=== PATIENT | female | born 1930 ===

== ENCOUNTER 2017-12-15 10:35 | Inpatient (IN) | payer OTHER ==
--- NOTE | 2017-12-15 10:58 | C.PDOC ---
History Of Present Illness 87yo female with dementia, was at the clinic today and reported she had chest pain so EMS was called. Per EMS, once they arrived at scene, patient reported she had no chest pain and but she had epigastric pain. A full HPI and ROS is limited due to dementia. Time Seen by Provider: 12/15/17 10:36 Chief Complaint (Nursing): Medical Clearance History Per: EMS History/Exam Limitations: clinical condition (dementia) Past Medical History Reviewed: Historical Data, Nursing Documentation, Vital Signs Vital Signs: Last Vital Signs Temp 97.6 F 12/15/17 10:39 Pulse 64 12/15/17 16:01 Resp 20 12/15/17 16:01 BP 143/82 12/15/17 16:01 Pulse Ox 100 12/15/17 16:52 - Medical History PMH: Alzheimer's Disease, Dementia Family History: States: No Known Family Hx - Social History Hx Alcohol Use: No Hx Substance Use: No Review Of Systems Review Of Systems: ROS cannot be obtained secondary to pt's inabilty to answer questions. (patient has dementia) Cardiovascular: Positive for: Chest Pain Gastrointestinal: Positive for: Abdominal Pain Physical Exam - Physical Exam Appears: Non-toxic Skin: Normal Color Head: Normacephalic Eye(s): bilateral: Normal Inspection Neck: Normal ROM, Supple Cardiovascular: Rhythm Regular Respiratory: Normal Breath Sounds Gastrointestinal/Abdominal: Normal Exam, Bowel Sounds, Soft, No Tenderness Back: Normal Inspection Extremity: Normal ROM ED Course And Treatment - Laboratory Results Result Diagrams: 12/15/17 11:22 12/15/17 12:57 ECG: Interpreted By Me, Viewed By Me Interpretation Of ECG: Wide QRS, RBBB, left axis deviation Rate From EC O2 Sat by Pulse Oximetry: 100 (RA) Pulse Ox Interpretation: Normal Progress Note: case was d/w who accepted patient to tele for observation. Medical Decision Making Medical Decision Making: Impression: Epigastric pain, chest pain Plan: -- Labs -- Aspirin 325 mg PO Disposition - Disposition Disposition: HOSPITALIZED Disposition Time: 15:33 Condition: FAIR - Clinical Impression Clinical Impression: Chest pain, Abnormal EKG - PA / FLOOR TECHNICIAN / Resident Statement MD/DO has reviewed & agrees with the documentation as recorded. - Scribe Statement The provider has reviewed the documentation as recorded by the Scribe (Mariel Schmidt) Provider Attestation: All medical record entries made by the Scribe were at my direction and personally dictated by me. I have reviewed the chart and agree that the record accurately reflects my personal performance of the history, physical exam, medical decision making, and the department course for this patient. I have also personally directed, reviewed, and agree with the discharge instructions and disposition. Decision To Admit - Pt Status Changed To: Hospital Disposition Of: Observation - . Bed Request Type: Telemetry Admitting Physician: Char Bravo Patient Diagnosis: Chest pain, Abnormal EKG
[2017-12-15 11:33] LABS: BASO % 0.4 % (0.0-2.0); EOS # 0.1 K/uL (0.0-0.7); EOS % 1.7 % (0.0-4.0); HEMOGLOBIN 12.6 g/dL (11.0-16.0); LYMPH # 2.6 K/uL (1.0-4.3); LYMPH % 38.2 % (20.0-40.0); MEAN CELL VOLUME 96.7 fL (81.0-99.0); MEAN CORPUSCULAR HEMOGLOBIN 32.8 pg (27.0-31.0); MEAN CORPUSCULAR HGB CONC 33.9 g/dL (33.0-37.0); MEAN PLATELET VOLUME 7.1 fL (7.2-11.7); MONO # 0.5 K/uL (0.0-0.8); MONO % 7.7 % (0.0-10.0); NEUT # 3.6 K/uL (1.8-7.0); RBC 3.84 Mil/uL (3.80-5.20); RED CELL DISTRIBUTION WIDTH 14.8 % (11.5-14.5); WHITE BLOOD COUNT 6.8 K/uL (4.8-10.8)
[2017-12-15 11:43] LABS: INR 0.9; PROTHROMBIN TIME 10.5 SECONDS (9.7-12.2)
[2017-12-15 12:01] LABS: SQUAMOUS EPITHIAL 4 /hpf (0-5); URINE BACTERIA MANY (<OCC); URINE BILIRUBIN NEGATIVE (NEGATIVE); URINE BLOOD NEGATIVE (NEGATIVE); URINE CLARITY Hazy (Clear); URINE COLOR Yellow (YELLOW); URINE GLUCOSE (UA) NORMAL (Normal); URINE LEUKOCYTE ESTERASE 1+ Leu/uL (Negative); URINE NITRATE POSITIVE (NEGATIVE); URINE PROTEIN NEGATIVE (NEGATIVE); URINE UROBILINOGEN NORMAL mg/dL (0.2-1.0)
--- NOTE | 2017-12-15 12:01 | RAD ---
PROCEDURE: CHEST RADIOGRAPH, 1 VIEW HISTORY: CP COMPARISON: With the its use FINDINGS: LUNGS: Clear. PLEURA: No pneumothorax or pleural fluid seen. CARDIOVASCULAR: Normal. OSSEOUS STRUCTURES: No significant abnormalities. VISUALIZED UPPER ABDOMEN: Normal. OTHER FINDINGS: None. IMPRESSION: No active disease.
[2017-12-15 13:11] LABS: ALB/GLOB RATIO 1.1 (1.0-2.1); ALBUMIN 3.8 g/dL (3.5-5.0); ALT/SGPT 16 U/L (9-52); AST/SGOT 21 U/L (14-36); BLOOD UREA NITROGEN 11 mg/dL (7-17); CALCIUM 10.2 mg/dl (8.6-10.4); GFR AFRICAN-AMERICAN > 60; GFR NON-AFRICAN AMERICAN > 60
[2017-12-15 13:23] LABS: B-TYPE NATRIURETIC PEPTIDE 144 pg/mL (0-900)
[2017-12-15] MEDS ORDERED: Morphine 4 MG/ML VIAL ONE (15:28)
--- NOTE | 2017-12-15 17:54 | CP.PCM.PN ---
Subjective - Date & Time of Evaluation Date of Evaluation: 12/15/17 Time of Evaluation: 14:10 - Subjective Subjective: clinically same Objective - Vital Signs/Intake and Output Vital Signs (last 24 hours): Temp Pulse Resp BP Pulse Ox 97.6 F 85 16 117/72 99 12/15/17 10:39 12/15/17 17:49 12/15/17 17:49 12/15/17 17:49 12/15/17 17:49 - Labs Labs: 12/15/17 11:22 12/15/17 12:57 PT 10.5 SECONDS (9.7-12.2) 12/15/17 11:22 INR 0.9 12/15/17 11:22 APTT 32 SECONDS (21-34) 12/15/17 11:22 - Constitutional Appears: Well - Head Exam Head Exam: ATRAUMATIC, NORMAL INSPECTION, NORMOCEPHALIC - Eye Exam Eye Exam: EOMI, Normal appearance, PERRL Pupil Exam: NORMAL ACCOMODATION, PERRL - ENT Exam ENT Exam: Mucous Membranes Moist, Normal Exam - Neck Exam Neck Exam: Full ROM, Normal Inspection. absent: Lymphadenopathy - Respiratory Exam Respiratory Exam: Decreased Breath Sounds - Cardiovascular Exam Cardiovascular Exam: REGULAR RHYTHM, +S1, +S2 - GI/Abdominal Exam GI & Abdominal Exam: Soft, Diminished Bowel Sounds - Rectal Exam Rectal Exam: Deferred
--- NOTE | 2017-12-15 17:56 | CP.PCM.HP ---
Past Patient History - Past Social History Smoking Status: Never Smoked - CARDIAC Hx Hypotension: Yes Other/Comment: Hx of Precordial pain - NEUROLOGICAL Hx Alzheimer's Disease: Yes Hx Dementia: Yes - ENDOCRINE/METABOLIC Hx Diabetes Mellitus Type 2: Yes - PSYCHIATRIC Hx Substance Use: No Meds Allergies/Adverse Reactions: Allergies Allergy/AdvReac Type Severity Reaction Status Date / Time Penicillins Allergy Verified 12/15/17 10:50 Physical Exam - Constitutional Appears: Well - Head Exam Head Exam: ATRAUMATIC, NORMAL INSPECTION, NORMOCEPHALIC - Eye Exam Eye Exam: EOMI, Normal appearance, PERRL Pupil Exam: NORMAL ACCOMODATION, PERRL - ENT Exam ENT Exam: Mucous Membranes Moist, Normal Exam - Neck Exam Neck exam: Positive for: Normal Inspection - Respiratory Exam Respiratory Exam: Decreased Breath Sounds - Cardiovascular Exam Cardiovascular Exam: REGULAR RHYTHM, +S1, +S2 - GI/Abdominal Exam GI & Abdominal Exam: Diminished Bowel Sounds, Soft - Rectal Exam Rectal Exam: Deferred Results - Vital Signs Recent Vital Signs: Last Vital Signs Temp 97.6 F 12/15/17 10:39 Pulse 85 12/15/17 17:49 Resp 16 12/15/17 17:49 BP 117/72 12/15/17 17:49 Pulse Ox 99 12/15/17 17:49 - Labs Result Diagrams: 12/15/17 11:22 12/15/17 12:57 Labs: Laboratory Results - last 24 hr 12/15/17 12/15/17 12/15/17 10:45 11:22 11:22 WBC 6.8 RBC 3.84 Hgb 12.6 Hct 37.2 MCV 96.7 MCH 32.8 H MCHC 33.9 RDW 14.8 H Plt Count 291 MPV 7.1 L Neut % (Auto) 52.0 Lymph % (Auto) 38.2 [place] % (Auto) 7.7 Eos % (Auto) 1.7 Baso % (Auto) 0.4 Neut # (Auto) 3.6 Lymph # (Auto) 2.6 [place] # (Auto) 0.5 Eos # (Auto) 0.1 Baso # (Auto) 0.0 PT 10.5 INR 0.9 APTT 32 Sodium Potassium Chloride Carbon Dioxide Anion Gap BUN Creatinine Est GFR ( Amer) Est GFR (Non-Af Amer) POC Glucose (mg/dL) 91 Random Glucose Calcium Total Bilirubin AST ALT Alkaline Phosphatase CK-MB (Mass) Troponin I NT-Pro-B Natriuret Pep Total Protein Albumin Globulin Albumin/Globulin Ratio Urine Color Urine Clarity Urine pH Ur Specific [place] Urine Protein Urine Glucose (UA) Urine Ketones Urine Blood Urine Nitrate Urine Bilirubin Urine Urobilinogen Ur Leukocyte Esterase Urine WBC (Auto) Urine RBC (Auto) Ur Squamous Epith Cells Urine Bacteria 12/15/17 12/15/17 11:22 12:57 WBC RBC Hgb Hct MCV MCH MCHC RDW Plt Count MPV Neut % (Auto) Lymph % (Auto) [place] % (Auto) Eos % (Auto) Baso % (Auto) Neut # (Auto) Lymph # (Auto) [place] # (Auto) Eos # (Auto) Baso # (Auto) PT INR APTT Sodium 142 Potassium 4.7 Chloride 104 Carbon Dioxide 29 Anion Gap 13 BUN 11 Creatinine 0.7 Est GFR ( Amer) > 60 Est GFR (Non-Af Amer) > 60 POC Glucose (mg/dL) Random Glucose 80 Calcium 10.2 Total Bilirubin 0.3 AST 21 ALT 16 Alkaline Phosphatase 89 CK-MB (Mass) 0.40 Troponin I < 0.0120 NT-Pro-B Natriuret Pep 144 Total Protein 7.4 Albumin 3.8 Globulin 3.6 Albumin/Globulin Ratio 1.1 Urine Color Yellow Urine Clarity Hazy Urine pH 7.0 Ur Specific [place] 1.010 Urine Protein Negative Urine Glucose (UA) Normal Urine Ketones Negative Urine Blood Negative Urine Nitrate Positive H Urine Bilirubin Negative Urine Urobilinogen Normal Ur Leukocyte Esterase 1+ H Urine WBC (Auto) 9 H Urine RBC (Auto) 1 Ur Squamous Epith Cells 4 Urine Bacteria Many H
[2017-12-15] MEDS: (Novolog) Insulin Aspart, Recombinant 100 u/ml 10 ml vial SC SCH (21:38)
[2017-12-16] MEDS ORDERED: Albuterol-Ipratrop 3 mg / 0.5 (3 ml) UD INH ONE (06:15)
[2017-12-16 06:55] LABS: CK-MB 0.63 ng/mL (0.0-3.38)
[2017-12-16] MEDS: (Novolog) Insulin Aspart, Recombinant 100 u/ml 10 ml vial SC SCH ×4 (07:47→22:49)
[2017-12-16] MEDS: Enoxaparin 40 mg Syringe SC SCH (10:04)
[2017-12-16] MEDS: Pantoprazole 40 mg EC Tab PO SCH (10:04)
--- NOTE | 2017-12-16 10:38 | CP.PCM.CON ---
History of Present Illness - History of Present Illness History of Present Illness: 87yo female with dementia, was at the clinic today and reported she had chest pain so EMS was called. Per EMS, once they arrived at scene, patient reported she had no chest pain and but she had epigastric pain. A full HPI and ROS is limited due to dementia. Labs: H/H, CHEM WNL except inc blood glucose Troponin neg x3 CXRAY: No congestion or edema Vitals: BP, HR and temp WNL Review of Systems - Review of Systems All systems: reviewed and no additional remarkable complaints except Past Patient History - Past Social History Smoking Status: Never Smoked - CARDIAC Hx Hypotension: Yes Other/Comment: Hx of Precordial pain - NEUROLOGICAL Hx Alzheimer's Disease: Yes Hx Dementia: Yes - ENDOCRINE/METABOLIC Hx Diabetes Mellitus Type 2: Yes - PSYCHIATRIC Hx Substance Use: No Meds Allergies/Adverse Reactions: Allergies Allergy/AdvReac Type Severity Reaction Status Date / Time Penicillins Allergy Verified 12/15/17 10:50 - Medications Medications: Current Medications Aspirin (Aspirin) 325 mg PO DAILY [facility] Last Admin: 12/16/17 10:04 Dose: 325 mg Enoxaparin Sodium (Lovenox) 40 mg SC DAILY [facility] Last Admin: 12/16/17 10:04 Dose: 40 mg Insulin Aspart (Novolog) 0 unit SC ACHS [facility] PRN Reason: Protocol Last Admin: 12/16/17 07:47 Dose: Not Given Losartan Potassium (Cozaar) 50 mg PO DAILY [facility] Last Admin: 12/16/17 10:04 Dose: 50 mg Metformin HCl (Glucophage) 850 mg PO BID [facility] Last Admin: 12/16/17 10:04 Dose: 850 mg Pantoprazole Sodium (Protonix Ec Tab) 40 mg PO DAILY [facility] Last Admin: 12/16/17 10:04 Dose: 40 mg Physical Exam - Constitutional Appears: No Acute Distress, Other (dementia/confusion reported as baseline) - Head Exam Head Exam: ATRAUMATIC, NORMAL INSPECTION, NORMOCEPHALIC - Eye Exam Eye Exam: EOMI, Normal appearance - ENT Exam ENT Exam: Mucous Membranes Moist, Normal Exam - Neck Exam Neck exam: Positive for: Normal Inspection. Negative for: Thyromegaly - Respiratory Exam Respiratory Exam: Clear to Auscultation Bilateral, NORMAL BREATHING PATTERN. absent: Rales, Rhonchi, Wheezes - Cardiovascular Exam Cardiovascular Exam: REGULAR RHYTHM, RRR, +S1, +S2. absent: JVD, Systolic Murmur - GI/Abdominal Exam GI & Abdominal Exam: Soft. absent: Tenderness - Extremities Exam Extremities exam: Positive for: pedal pulses present. Negative for: calf tenderness, joint swelling, pedal edema - Neurological Exam Neurological exam: Altered Results - Vital Signs Recent Vital Signs: Last Vital Signs Temp 98.4 F 12/16/17 08:18 Pulse 83 12/16/17 08:18 Resp 20 12/16/17 08:18 BP 128/87 12/16/17 08:18 Pulse Ox 99 12/16/17 08:18 - Labs Result Diagrams: 12/15/17 11:22 12/15/17 12:57 Labs: Laboratory Results - last 24 hr 12/15/17 12/15/17 12/15/17 10:45 11:22 11:22 WBC 6.8 RBC 3.84 Hgb 12.6 Hct 37.2 MCV 96.7 MCH 32.8 H MCHC 33.9 RDW 14.8 H Plt Count 291 MPV 7.1 L Neut % (Auto) 52.0 Lymph % (Auto) 38.2 [place] % (Auto) 7.7 Eos % (Auto) 1.7 Baso % (Auto) 0.4 Neut # (Auto) 3.6 Lymph # (Auto) 2.6 [place] # (Auto) 0.5 Eos # (Auto) 0.1 Baso # (Auto) 0.0 PT 10.5 INR 0.9 APTT 32 Sodium Potassium Chloride Carbon Dioxide Anion Gap BUN Creatinine Est GFR ( Amer) Est GFR (Non-Af Amer) POC Glucose (mg/dL) 91 Random Glucose Calcium Total Bilirubin AST ALT Alkaline Phosphatase Total Creatine Kinase CK-MB (Mass) Troponin I NT-Pro-B Natriuret Pep Total Protein Albumin Globulin Albumin/Globulin Ratio Urine Color Urine Clarity Urine pH Ur Specific [place] Urine Protein Urine Glucose (UA) Urine Ketones Urine Blood Urine Nitrate Urine Bilirubin Urine Urobilinogen Ur Leukocyte Esterase Urine WBC (Auto) Urine RBC (Auto) Ur Squamous Epith Cells Urine Bacteria 12/15/17 12/15/17 12/15/17 11:22 12:57 20:52 WBC RBC Hgb Hct MCV MCH MCHC RDW Plt Count MPV Neut % (Auto) Lymph % (Auto) [place] % (Auto) Eos % (Auto) Baso % (Auto) Neut # (Auto) Lymph # (Auto) [place] # (Auto) Eos # (Auto) Baso # (Auto) PT INR APTT Sodium 142 Potassium 4.7 Chloride 104 Carbon Dioxide 29 Anion Gap 13 BUN 11 Creatinine 0.7 Est GFR ( Amer) > 60 Est GFR (Non-Af Amer) > 60 POC Glucose (mg/dL) 169 H Random Glucose 80 Calcium 10.2 Total Bilirubin 0.3 AST 21 ALT 16 Alkaline Phosphatase 89 Total Creatine Kinase CK-MB (Mass) 0.40 Troponin I < 0.0120 NT-Pro-B Natriuret Pep 144 Total Protein 7.4 Albumin 3.8 Globulin 3.6 Albumin/Globulin Ratio 1.1 Urine Color Yellow Urine Clarity Hazy Urine pH 7.0 Ur Specific [place] 1.010 Urine Protein Negative Urine Glucose (UA) Normal Urine Ketones Negative Urine Blood Negative Urine Nitrate Positive H Urine Bilirubin Negative Urine Urobilinogen Normal Ur Leukocyte Esterase 1+ H Urine WBC (Auto) 9 H Urine RBC (Auto) 1 Ur Squamous Epith Cells 4 Urine Bacteria Many H 12/15/17 12/16/17 12/16/17 22:06 06:18 07:16 WBC RBC Hgb Hct MCV MCH MCHC RDW Plt Count MPV Neut % (Auto) Lymph % (Auto) [place] % (Auto) Eos % (Auto) Baso % (Auto) Neut # (Auto) Lymph # (Auto) [place] # (Auto) Eos # (Auto) Baso # (Auto) PT INR APTT Sodium Potassium Chloride Carbon Dioxide Anion Gap BUN Creatinine Est GFR ( Amer) Est GFR (Non-Af Amer) POC Glucose (mg/dL) 125 H Random Glucose Calcium Total Bilirubin AST ALT Alkaline Phosphatase Total Creatine Kinase 31 40 CK-MB (Mass) 0.50 0.63 Troponin I < 0.0120 < 0.0120 NT-Pro-B Natriuret Pep Total Protein Albumin Globulin Albumin/Globulin Ratio Urine Color Urine Clarity Urine pH Ur Specific [place] Urine Protein Urine Glucose (UA) Urine Ketones Urine Blood Urine Nitrate Urine Bilirubin Urine Urobilinogen Ur Leukocyte Esterase Urine WBC (Auto) Urine RBC (Auto) Ur Squamous Epith Cells Urine Bacteria - EKG Data EKG Interpreted by: Myself Assessment & Plan - Assessment and Plan (Free Text) Assessment: HTN DM Dementia RBBB on EKG CP atypical CP is reolved; [place] ruled out I have reviewed all EKGs and find NSR with 1st deg AVB: There was no evidence for junctional rhythm 'likely artifact', no ischemic changes were present. No ADHF or volume overload VSS Plan echo to eval cardiac structure and function: monitor for bradycardia: avoid beta-blockers. DVT prophylaxis cont with ASA-losartan
--- NOTE | 2017-12-16 16:54 | CP.PCM.PN ---
Subjective - Date & Time of Evaluation Date of Evaluation: 12/16/17 Time of Evaluation: 15:20 - Subjective Subjective: clinically same Objective - Vital Signs/Intake and Output Vital Signs (last 24 hours): Temp Pulse Resp BP Pulse Ox 98.4 F 83 20 128/87 99 12/16/17 08:18 12/16/17 08:18 12/16/17 08:18 12/16/17 08:18 12/16/17 08:18 - Medications Medications: Current Medications Aspirin (Aspirin) 325 mg PO DAILY [facility] Last Admin: 12/16/17 10:04 Dose: 325 mg Enoxaparin Sodium (Lovenox) 40 mg SC DAILY [facility] Last Admin: 12/16/17 10:04 Dose: 40 mg Insulin Aspart (Novolog) 0 unit SC [facility] PRN Reason: Protocol Last Admin: 12/16/17 11:47 Dose: Not Given Losartan Potassium (Cozaar) 50 mg PO DAILY [facility] Last Admin: 12/16/17 10:04 Dose: 50 mg Metformin HCl (Glucophage) 850 mg PO BID [facility] Last Admin: 12/16/17 10:04 Dose: 850 mg Pantoprazole Sodium (Protonix Ec Tab) 40 mg PO DAILY [facility] Last Admin: 12/16/17 10:04 Dose: 40 mg - Labs Labs: 12/15/17 11:22 12/15/17 12:57 PT 10.5 SECONDS (9.7-12.2) 12/15/17 11:22 INR 0.9 12/15/17 11:22 APTT 32 SECONDS (21-34) 12/15/17 11:22 - Constitutional Appears: Well - Head Exam Head Exam: ATRAUMATIC, NORMAL INSPECTION, NORMOCEPHALIC - Eye Exam Eye Exam: EOMI, Normal appearance, PERRL Pupil Exam: NORMAL ACCOMODATION, PERRL - ENT Exam ENT Exam: Mucous Membranes Moist, Normal Exam - Neck Exam Neck Exam: Full ROM, Normal Inspection. absent: Lymphadenopathy - Respiratory Exam Respiratory Exam: Decreased Breath Sounds - Cardiovascular Exam Cardiovascular Exam: REGULAR RHYTHM, +S1, +S2 - GI/Abdominal Exam GI & Abdominal Exam: Soft, Diminished Bowel Sounds - Rectal Exam Rectal Exam: Deferred
[2017-12-16 20:12] LABS: CK-MB 0.47 ng/mL (0.0-3.38)
[2017-12-17] MEDS: (Novolog) Insulin Aspart, Recombinant 100 u/ml 10 ml vial SC SCH ×4 (07:30→21:44)
--- NOTE | 2017-12-17 07:45 | CP.PCM.PN ---
Subjective - Date & Time of Evaluation Date of Evaluation: 12/17/17 Time of Evaluation: 07:44 - Subjective Subjective: Still pending ECHO HTN DM Dementia RBBB on EKG CP atypical CP is reolved; [place] ruled out I have reviewed all EKGs and find NSR with 1st deg AVB: There was no evidence for junctional rhythm 'likely artifact', no ischemic changes were present. No ADHF or volume overload VSS Plan echo to eval cardiac structure and function: monitor for bradycardia: avoid beta-blockers. DVT prophylaxis cont with ASA-losartan Objective - Vital Signs/Intake and Output Vital Signs (last 24 hours): Temp Pulse Resp BP Pulse Ox 97.3 F L 90 20 150/90 97 12/17/17 05:00 12/17/17 05:00 12/17/17 05:00 12/17/17 05:00 12/17/17 05:00 - Medications Medications: Current Medications Aspirin (Aspirin) 325 mg PO DAILY [facility] Last Admin: 12/16/17 10:04 Dose: 325 mg Enoxaparin Sodium (Lovenox) 40 mg SC DAILY [facility] Last Admin: 12/16/17 10:04 Dose: 40 mg Insulin Aspart (Novolog) 0 unit SC [facility] PRN Reason: Protocol Last Admin: 12/17/17 07:30 Dose: Not Given Losartan Potassium (Cozaar) 50 mg PO DAILY [facility] Last Admin: 12/16/17 10:04 Dose: 50 mg Metformin HCl (Glucophage) 850 mg PO BID [facility] Last Admin: 12/16/17 18:00 Dose: Not Given Pantoprazole Sodium (Protonix Ec Tab) 40 mg PO DAILY [facility] Last Admin: 12/16/17 10:04 Dose: 40 mg - Labs Labs: 12/15/17 11:22 12/15/17 12:57 PT 10.5 SECONDS (9.7-12.2) 12/15/17 11:22 INR 0.9 12/15/17 11:22 APTT 32 SECONDS (21-34) 12/15/17 11:22
[2017-12-17] MEDS: Pantoprazole 40 mg EC Tab PO SCH ×2 (10:50→13:38)
[2017-12-17] MEDS: Enoxaparin 40 mg Syringe SC SCH (11:00)
--- NOTE | 2017-12-17 14:09 | CP.PCM.PN ---
Subjective - Date & Time of Evaluation Date of Evaluation: 12/17/17 Time of Evaluation: 13:40 - Subjective Subjective: clinically same Objective - Vital Signs/Intake and Output Vital Signs (last 24 hours): Temp Pulse Resp BP Pulse Ox 97.1 F L 100 H 20 117/74 94 L 12/17/17 08:30 12/17/17 09:31 12/17/17 08:30 12/17/17 08:30 12/17/17 08:30 - Medications Medications: Current Medications Aspirin (Aspirin) 325 mg PO DAILY [facility] Last Admin: 12/17/17 13:41 Dose: 325 mg Enoxaparin Sodium (Lovenox) 40 mg SC DAILY [facility] Last Admin: 12/17/17 11:00 Dose: 40 mg Insulin Aspart (Novolog) 0 unit SC [facility] PRN Reason: Protocol Last Admin: 12/17/17 12:02 Dose: Not Given Losartan Potassium (Cozaar) 50 mg PO DAILY [facility] Last Admin: 12/17/17 13:41 Dose: 50 mg Metformin HCl (Glucophage) 850 mg PO BID [facility] Last Admin: 12/17/17 10:50 Dose: Not Given Pantoprazole Sodium (Protonix Ec Tab) 40 mg PO DAILY [facility] Last Admin: 12/17/17 13:38 Dose: 40 mg - Labs Labs: 12/15/17 11:22 12/15/17 12:57 PT 10.5 SECONDS (9.7-12.2) 12/15/17 11:22 INR 0.9 12/15/17 11:22 APTT 32 SECONDS (21-34) 12/15/17 11:22 - Constitutional Appears: Well - Head Exam Head Exam: ATRAUMATIC, NORMAL INSPECTION, NORMOCEPHALIC - Eye Exam Eye Exam: EOMI, Normal appearance, PERRL Pupil Exam: NORMAL ACCOMODATION, PERRL - ENT Exam ENT Exam: Mucous Membranes Moist, Normal Exam - Neck Exam Neck Exam: Full ROM, Normal Inspection. absent: Lymphadenopathy - Respiratory Exam Respiratory Exam: Decreased Breath Sounds - Cardiovascular Exam Cardiovascular Exam: REGULAR RHYTHM, +S1, +S2 - GI/Abdominal Exam GI & Abdominal Exam: Soft, Diminished Bowel Sounds - Rectal Exam Rectal Exam: Deferred
[2017-12-18] MEDS: (Novolog) Insulin Aspart, Recombinant 100 u/ml 10 ml vial SC SCH ×4 (07:30→21:59)
[2017-12-18] MEDS: Enoxaparin 40 mg Syringe SC SCH (09:12)
[2017-12-18] MEDS: Pantoprazole 40 mg EC Tab PO SCH (09:12)
[2017-12-18] MEDS ORDERED: Tigecycline 50 MG in Dextrose 5% In Water 100 ML IVPB SCH (10:00)
--- NOTE | 2017-12-18 12:03 | CARD ---
APPROVED REPORT EXAM: Two-dimensional and M-mode echocardiogram with Doppler and color Doppler. Other Information Quality : GoodRhythm : Technically limited study due to uncooperative pt INDICATION Abnormal EKG/Arrhythmia Chest Pain RISK FACTORS Diabetes Mitral Valve MV E Mhhvvmgk22.3cm/sMV A Cawjvmay56.7cm/sE/A ratio0.6 TDI E/Lateral E'0.0E/Medial E'0.0 Tricuspid Valve TR Peak [id number]/sTR Peak [id number] LEFT VENTRICLE The left ventricle is normal size. There is normal left ventricular wall thickness. The left ventricular function is normal. The left ventricular ejection fraction is within the normal range. No regional wall motion abnormalities noted. The left ventricular diastolic function is normal. No left ventricle thrombus noted on this study. There is no ventricular septal defect visualized. There is no left ventricular aneurysm. There is no mass noted in the left ventricle. RIGHT VENTRICLE The right ventricle is normal size. There is normal right ventricular wall thickness. The right ventricular systolic function is normal. ATRIA The left atrium size is normal. The right atrium size is normal. The interatrial septum is intact with no evidence for an atrial septal defect. AORTIC VALVE The aortic valve is normal in structure and function. No aortic regurgitation is present. There is no aortic valvular stenosis. There is no aortic valvular vegetation. MITRAL VALVE The mitral valve is normal in structure and function. There is no evidence of mitral valve prolapse. There is no mitral valve stenosis. There is no mitral valve regurgitation noted. TRICUSPID VALVE The tricuspid valve is normal in structure and function. There is no tricuspid valve regurgitation noted. There is no tricuspid valve prolapse or vegetation. There is no tricuspid valve stenosis. PULMONIC VALVE The pulmonary valve is normal in structure and function. There is no pulmonic valvular regurgitation. There is no pulmonic valvular stenosis. GREAT VESSELS The aortic root is normal in size. The ascending aorta is normal in size. The pulmonary artery is normal. The IVC is normal in size and collapses >50% with inspiration. PERICARDIAL EFFUSION The pericardium appears normal. There is no pleural effusion. <Conclusion> The left ventricular function is normal. The left ventricular ejection fraction is within the normal range. No regional wall motion abnormalities noted.
--- NOTE | 2017-12-18 13:05 | CP.PCM.PN ---
Subjective - Date & Time of Evaluation Date of Evaluation: 12/18/17 Time of Evaluation: 13:02 - Subjective Subjective: No acute distress clinically remains baseline Events noted Objective - Vital Signs/Intake and Output Vital Signs (last 24 hours): Temp Pulse Resp BP Pulse Ox 98.0 F 79 20 96/61 L 96 12/17/17 23:15 12/18/17 03:30 12/17/17 23:15 12/17/17 23:15 12/17/17 23:15 Intake and Output: 12/18/17 12/18/17 06:59 18:59 Intake Total 100 Balance 100 - Medications Medications: Current Medications Aspirin (Aspirin) 325 mg PO DAILY [facility] Last Admin: 12/18/17 09:11 Dose: 325 mg Enoxaparin Sodium (Lovenox) 40 mg SC DAILY [facility] Last Admin: 12/18/17 09:12 Dose: 40 mg Tigecycline 50 mg/ Dextrose 100 mls @ 100 mls/hr IVPB Q12H [facility] Insulin Aspart (Novolog) 0 unit SC ACHS [facility] PRN Reason: Protocol Last Admin: 12/18/17 07:30 Dose: Not Given Losartan Potassium (Cozaar) 50 mg PO DAILY [facility] Last Admin: 12/18/17 09:11 Dose: 50 mg Metformin HCl (Glucophage) 850 mg PO BID [facility] Last Admin: 12/18/17 09:11 Dose: Not Given Pantoprazole Sodium (Protonix Ec Tab) 40 mg PO DAILY [facility] Last Admin: 12/18/17 09:12 Dose: 40 mg - Labs Labs: 12/15/17 11:22 12/15/17 12:57 PT 10.5 SECONDS (9.7-12.2) 12/15/17 11:22 INR 0.9 12/15/17 11:22 APTT 32 SECONDS (21-34) 12/15/17 11:22 - Constitutional Appears: No Acute Distress, Other (CVS: RRR, Lungs CTABL, Extrem: no edema) Assessment and Plan - Assessment and Plan (Free Text) Assessment: HTN DM Dementia RBBB on EKG CP atypical CP is reolved; [place] ruled out I have reviewed all EKGs and find NSR with 1st deg AVB: There was no evidence for junctional rhythm 'likely artifact', no ischemic changes were present. No ADHF or volume overload VSS echo reported with normal LV function and motion: avoid beta-blockers. DVT prophylaxis cont with ASA-losartan (BP trend is better) PT * No active cardiac issues, no additional cardiac testing at this time: D/C planning--------> will sign off.
--- NOTE | 2017-12-18 17:24 | CP.PCM.PN ---
Subjective - Date & Time of Evaluation Date of Evaluation: 12/18/17 Time of Evaluation: 16:20 - Subjective Subjective: pt clinically same Objective - Vital Signs/Intake and Output Vital Signs (last 24 hours): Temp Pulse Resp BP Pulse Ox 98.1 F 89 18 110/72 96 12/18/17 16:00 12/18/17 16:00 12/18/17 16:00 12/18/17 16:00 12/18/17 16:00 Intake and Output: 12/18/17 12/18/17 06:59 18:59 Intake Total 100 Balance 100 - Medications Medications: Current Medications Aspirin (Aspirin) 325 mg PO DAILY [facility] Last Admin: 12/18/17 09:11 Dose: 325 mg Enoxaparin Sodium (Lovenox) 40 mg SC DAILY [facility] Last Admin: 12/18/17 09:12 Dose: 40 mg Tigecycline 50 mg/ Sodium (Chloride) 100 mls @ 100 mls/hr IVPB Q12 [facility] Insulin Aspart (Novolog) 0 unit SC ACHS [facility] PRN Reason: Protocol Last Admin: 12/18/17 17:22 Dose: Not Given Losartan Potassium (Cozaar) 50 mg PO DAILY [facility] Last Admin: 12/18/17 09:11 Dose: 50 mg Metformin HCl (Glucophage) 850 mg PO BID [facility] Last Admin: 12/18/17 17:22 Dose: 850 mg Pantoprazole Sodium (Protonix Ec Tab) 40 mg PO DAILY [facility] Last Admin: 12/18/17 09:12 Dose: 40 mg - Labs Labs: 12/15/17 11:22 12/15/17 12:57 PT 10.5 SECONDS (9.7-12.2) 12/15/17 11:22 INR 0.9 12/15/17 11:22 APTT 32 SECONDS (21-34) 12/15/17 11:22
--- NOTE | 2017-12-18 18:03 | CP.PCM.CON ---
History of Present Illness - History of Present Illness History of Present Illness: 87yo female with dementia, was at the clinic today and reported she had chest pain so EMS was called. Per EMS, once they arrived at scene, patient reported she had no chest pain and but she had epigastric pain. A full HPI and ROS is limited due to dementia. [facility] for chest pain found to have UTI- ESBL + allergic to PCN started tygacil Past Patient History - Past Medical History & Family History Past Medical History?: Yes - Past Social History Smoking Status: Never Smoked - CARDIAC Hx Hypotension: Yes Other/Comment: Hx of Precordial pain - NEUROLOGICAL Hx Alzheimer's Disease: Yes Hx Dementia: Yes - ENDOCRINE/METABOLIC Hx Diabetes Mellitus Type 2: Yes - MUSCULOSKELETAL/RHEUMATOLOGICAL Hx Falls: No - PSYCHIATRIC Hx Substance Use: No Meds Allergies/Adverse Reactions: Allergies Allergy/AdvReac Type Severity Reaction Status Date / Time Penicillins Allergy Verified 12/15/17 10:50 - Medications Medications: Current Medications Aspirin (Aspirin) 325 mg PO DAILY [facility] Last Admin: 12/18/17 09:11 Dose: 325 mg Enoxaparin Sodium (Lovenox) 40 mg SC DAILY [facility] Last Admin: 12/18/17 09:12 Dose: 40 mg Tigecycline 50 mg/ Sodium (Chloride) 100 mls @ 100 mls/hr IVPB Q12 [facility] Insulin Aspart (Novolog) 0 unit SC ACHS [facility]PL[facility] BY [facility] PRN Reason: Protocol Last Admin: 12/18/17 17:22 Dose: Not Given Losartan Potassium (Cozaar) 50 mg PO DAILY [facility] Last Admin: 12/18/17 09:11 Dose: 50 mg Metformin HCl (Glucophage) 850 mg PO BID [facility] Last Admin: 12/18/17 17:22 Dose: 850 mg Pantoprazole Sodium (Protonix Ec Tab) 40 mg PO DAILY [facility] Last Admin: 12/18/17 09:12 Dose: 40 mg Results - Vital Signs Recent Vital Signs: Last Vital Signs Temp 98.1 F 12/18/17 16:00 Pulse 89 12/18/17 16:00 Resp 18 12/18/17 16:00 BP 110/72 12/18/17 16:00 Pulse Ox 96 12/18/17 16:00 - Labs Result Diagrams: 12/15/17 11:22 12/15/17 12:57 Labs: Laboratory Results - last 24 hr 12/17/17 12/18/17 12/18/17 20:54 06:25 12:24 POC Glucose (mg/dL) 94 107 109 12/18/17 17:04 POC Glucose (mg/dL) 127 H
[2017-12-18 18:42] VITALS: RESP 20
[2017-12-19] MEDS: (Novolog) Insulin Aspart, Recombinant 100 u/ml 10 ml vial SC SCH ×4 (07:30→22:00)
[2017-12-19] MEDS: Enoxaparin 40 mg Syringe SC SCH (11:50)
[2017-12-19] MEDS: Pantoprazole 40 mg EC Tab PO SCH (11:50)
--- NOTE | 2017-12-19 12:46 | CARD ---
APPROVED REPORT EKG Measurement Heart [id number] <Conclusion> Junctional rhythm Incomplete right bundle branch block Left anterior fascicular block Abnormal ECG
--- NOTE | 2017-12-19 12:47 | CARD ---
APPROVED REPORT EKG Measurement Heart [id number] <Conclusion> Sinus Wide QRS rhythm Left axis deviation Right bundle branch block Abnormal ECG
--- NOTE | 2017-12-19 18:29 | CP.PCM.PN ---
Subjective - Date & Time of Evaluation Date of Evaluation: 12/19/17 Time of Evaluation: 11:40 - Subjective Subjective: clinically same Objective - Vital Signs/Intake and Output Vital Signs (last 24 hours): Temp Pulse Resp BP Pulse Ox 1830 F H 78 20 117/85 98 12/19/17 00:20 12/19/17 17:50 12/19/17 17:50 12/19/17 17:50 12/19/17 17:50 Intake and Output: 12/19/17 12/19/17 06:59 18:59 Intake Total 400 Balance 400 - Medications Medications: Current Medications Aspirin (Aspirin) 325 mg PO DAILY [facility] Last Admin: 12/19/17 11:50 Dose: 325 mg Enoxaparin Sodium (Lovenox) 40 mg SC DAILY [facility] Last Admin: 12/19/17 11:50 Dose: 40 mg Tigecycline 50 mg/ Sodium (Chloride) 100 mls @ 100 mls/hr IVPB Q12 [facility] Last Admin: 12/19/17 11:49 Dose: 100 mls/hr Insulin Aspart (Novolog) 0 unit SC ACHS [facility] PRN Reason: Protocol Last Admin: 12/19/17 11:48 Dose: Not Given Losartan Potassium (Cozaar) 50 mg PO DAILY [facility] Last Admin: 12/19/17 11:50 Dose: 50 mg Metformin HCl (Glucophage) 850 mg PO BID [facility] Last Admin: 12/19/17 17:45 Dose: 850 mg Pantoprazole Sodium (Protonix Ec Tab) 40 mg PO DAILY [facility] Last Admin: 12/19/17 11:50 Dose: 40 mg - Labs Labs: 12/15/17 11:22 12/15/17 12:57 PT 10.5 SECONDS (9.7-12.2) 12/15/17 11:22 INR 0.9 12/15/17 11:22 APTT 32 SECONDS (21-34) 12/15/17 11:22 - Constitutional Appears: Well - Head Exam Head Exam: ATRAUMATIC, NORMAL INSPECTION, NORMOCEPHALIC - Eye Exam Eye Exam: EOMI, Normal appearance, PERRL Pupil Exam: NORMAL ACCOMODATION, PERRL - ENT Exam ENT Exam: Mucous Membranes Moist, Normal Exam - Neck Exam Neck Exam: Full ROM, Normal Inspection. absent: Lymphadenopathy - Respiratory Exam Respiratory Exam: Decreased Breath Sounds - Cardiovascular Exam Cardiovascular Exam: REGULAR RHYTHM, +S1, +S2 - GI/Abdominal Exam GI & Abdominal Exam: Soft, Diminished Bowel Sounds - Rectal Exam Rectal Exam: Deferred
[2017-12-20] MEDS: (Novolog) Insulin Aspart, Recombinant 100 u/ml 10 ml vial SC SCH ×4 (08:08→22:24)
[2017-12-20] MEDS: Enoxaparin 40 mg Syringe SC SCH (10:01)
[2017-12-20] MEDS: Pantoprazole 40 mg EC Tab PO SCH (10:01)
--- NOTE | 2017-12-20 16:35 | CP.PCM.PN ---
Subjective - Date & Time of Evaluation Date of Evaluation: 12/20/17 Time of Evaluation: 08:00 - Subjective Subjective: clinically same Objective - Vital Signs/Intake and Output Vital Signs (last 24 hours): Temp Pulse Resp BP Pulse Ox 98.2 F 83 20 134/74 99 12/20/17 15:57 12/20/17 15:57 12/20/17 15:57 12/20/17 15:57 12/20/17 15:57 Intake and Output: 12/20/17 12/20/17 06:59 18:59 Intake Total 200 Output Total 200 Balance 0 - Medications Medications: Current Medications Aspirin (Aspirin) 325 mg PO DAILY [facility] Last Admin: 12/20/17 10:02 Dose: 325 mg Enoxaparin Sodium (Lovenox) 40 mg SC DAILY [facility] Last Admin: 12/20/17 10:01 Dose: 40 mg Tigecycline 50 mg/ Sodium (Chloride) 100 mls @ 100 mls/hr IVPB Q12 [facility] Last Admin: 12/20/17 09:57 Dose: 100 mls/hr Insulin Aspart (Novolog) 0 unit SC ACHS [facility] PRN Reason: Protocol Last Admin: 12/20/17 13:18 Dose: Not Given Losartan Potassium (Cozaar) 50 mg PO DAILY [facility] Last Admin: 12/20/17 10:01 Dose: 50 mg Metformin HCl (Glucophage) 850 mg PO BID [facility] Last Admin: 12/20/17 10:00 Dose: 850 mg Pantoprazole Sodium (Protonix Ec Tab) 40 mg PO DAILY [facility] Last Admin: 12/20/17 10:01 Dose: 40 mg - Labs Labs: 12/15/17 11:22 12/15/17 12:57 PT 10.5 SECONDS (9.7-12.2) 12/15/17 11:22 INR 0.9 12/15/17 11:22 APTT 32 SECONDS (21-34) 12/15/17 11:22 - Constitutional Appears: Well - Head Exam Head Exam: ATRAUMATIC, NORMAL INSPECTION, NORMOCEPHALIC - Eye Exam Eye Exam: EOMI, Normal appearance, PERRL Pupil Exam: NORMAL ACCOMODATION, PERRL - ENT Exam ENT Exam: Mucous Membranes Moist, Normal Exam - Neck Exam Neck Exam: Full ROM, Normal Inspection. absent: Lymphadenopathy - Respiratory Exam Respiratory Exam: Decreased Breath Sounds - Cardiovascular Exam Cardiovascular Exam: REGULAR RHYTHM, +S1, +S2 - GI/Abdominal Exam GI & Abdominal Exam: Soft, Diminished Bowel Sounds - Rectal Exam Rectal Exam: Deferred
[2017-12-21] MEDS: Pantoprazole 40 mg EC Tab PO SCH (10:36)
[2017-12-21] MEDS: Enoxaparin 40 mg Syringe SC SCH (10:37)
[2017-12-21] MEDS: (Novolog) Insulin Aspart, Recombinant 100 u/ml 10 ml vial SC SCH ×4 (10:38→21:25)
--- NOTE | 2017-12-21 15:33 | CP.PCM.PN ---
Subjective - Date & Time of Evaluation Date of Evaluation: 12/21/17 Time of Evaluation: 07:00 - Subjective Subjective: 87yo female with dementia, was at the clinic today and reported she had chest pain so EMS was called. Per EMS, once they arrived at scene, patient reported she had no chest pain and but she had epigastric pain. A full HPI and ROS is limited due to dementia. [facility] for chest pain found to have UTI- ESBL + allergic to PCN started tygacil Objective - Vital Signs/Intake and Output Vital Signs (last 24 hours): Temp Pulse Resp BP Pulse Ox 97.6 F 88 20 107/73 96 12/21/17 08:35 12/21/17 08:35 12/21/17 08:35 12/21/17 08:35 12/21/17 08:35 Intake and Output: 12/21/17 12/21/17 06:59 18:59 Intake Total 400 Output Total 400 Balance 0 - Medications Medications: Current Medications Aspirin (Aspirin) 325 mg PO DAILY [facility] Last Admin: 12/21/17 10:36 Dose: 325 mg Enoxaparin Sodium (Lovenox) 40 mg SC DAILY [facility] Last Admin: 12/21/17 10:37 Dose: Not Given Tigecycline 50 mg/ Sodium (Chloride) 100 mls @ 100 mls/hr IVPB Q12 [facility] Last Admin: 12/21/17 10:42 Dose: Not Given Insulin Aspart (Novolog) 0 unit SC ACHS [facility] PRN Reason: Protocol Last Admin: 12/21/17 14:24 Dose: Not Given Losartan Potassium (Cozaar) 50 mg PO DAILY [facility] Last Admin: 12/21/17 10:36 Dose: 50 mg Metformin HCl (Glucophage) 850 mg PO BID [facility] Last Admin: 12/21/17 10:42 Dose: Not Given Pantoprazole Sodium (Protonix Ec Tab) 40 mg PO DAILY [facility] Last Admin: 12/21/17 10:36 Dose: 40 mg - Labs Labs: 12/15/17 11:22 12/15/17 12:57 PT 10.5 SECONDS (9.7-12.2) 12/15/17 11:22 INR 0.9 12/15/17 11:22 APTT 32 SECONDS (21-34) 12/15/17 11:22 - Constitutional Appears: Non-toxic, Chronically Ill - Head Exam Head Exam: NORMOCEPHALIC - Eye Exam Eye Exam: absent: Scleral icterus - ENT Exam ENT Exam: Mucous Membranes Dry - Neck Exam Neck Exam: absent: Lymphadenopathy, Thyromegaly - Respiratory Exam Respiratory Exam: Decreased Breath Sounds - Cardiovascular Exam Cardiovascular Exam: REGULAR RHYTHM - GI/Abdominal Exam GI & Abdominal Exam: Distended, Soft - Rectal Exam Rectal Exam: Deferred - Exam Exam: NORMAL INSPECTION - Extremities Exam Extremities Exam: absent: Pedal Edema - Back Exam Back Exam: absent: CVA tenderness (L), CVA tenderness (R) - Neurological Exam Neurological Exam: Alert, Altered, Awake Assessment and Plan - Assessment and Plan (Free Text) Assessment: 87yo female with dementia, was at the clinic today and reported she had chest pain so EMS was called. Per EMS, once they arrived at scene, patient reported she had no chest pain and but she had epigastric pain. A full HPI and ROS is limited due to dementia. [facility] for chest pain found to have UTI- ESBL + allergic to PCN started tygacil
--- NOTE | 2017-12-21 16:16 | CP.PCM.PN ---
Subjective - Date & Time of Evaluation Date of Evaluation: 12/21/17 Time of Evaluation: 07:40 - Subjective Subjective: clinically same Objective - Vital Signs/Intake and Output Vital Signs (last 24 hours): Temp Pulse Resp BP Pulse Ox 97.6 F 88 20 107/73 96 12/21/17 08:35 12/21/17 08:35 12/21/17 08:35 12/21/17 08:35 12/21/17 08:35 Intake and Output: 12/21/17 12/21/17 06:59 18:59 Intake Total 400 Output Total 400 Balance 0 - Medications Medications: Current Medications Aspirin (Aspirin) 325 mg PO DAILY [facility] Last Admin: 12/21/17 10:36 Dose: 325 mg Enoxaparin Sodium (Lovenox) 40 mg SC DAILY [facility] Last Admin: 12/21/17 10:37 Dose: Not Given Tigecycline 50 mg/ Sodium (Chloride) 100 mls @ 100 mls/hr IVPB Q12 [facility] Last Admin: 12/21/17 10:42 Dose: Not Given Insulin Aspart (Novolog) 0 unit SC [facility] PRN Reason: Protocol Last Admin: 12/21/17 14:24 Dose: Not Given Losartan Potassium (Cozaar) 50 mg PO DAILY [facility] Last Admin: 12/21/17 10:36 Dose: 50 mg Metformin HCl (Glucophage) 850 mg PO BID [facility] Last Admin: 12/21/17 10:42 Dose: Not Given Pantoprazole Sodium (Protonix Ec Tab) 40 mg PO DAILY [facility] Last Admin: 12/21/17 10:36 Dose: 40 mg - Labs Labs: 12/15/17 11:22 12/15/17 12:57 PT 10.5 SECONDS (9.7-12.2) 12/15/17 11:22 INR 0.9 12/15/17 11:22 APTT 32 SECONDS (21-34) 12/15/17 11:22
[2017-12-22] MEDS: (Novolog) Insulin Aspart, Recombinant 100 u/ml 10 ml vial SC SCH ×4 (07:57→22:16)
[2017-12-22] MEDS: Pantoprazole 40 mg EC Tab PO SCH (09:29)
[2017-12-22] MEDS: Enoxaparin 40 mg Syringe SC SCH (09:31)
--- NOTE | 2017-12-22 11:47 | CP.PCM.PN ---
Subjective - Date & Time of Evaluation Date of Evaluation: 12/22/17 Time of Evaluation: 07:00 - Subjective Subjective: 87yo female with dementia, was at the clinic today and reported she had chest pain so EMS was called. Per EMS, once they arrived at scene, patient reported she had no chest pain and but she had epigastric pain. A full HPI and ROS is limited due to dementia. [facility] for chest pain found to have UTI- ESBL + allergic to PCN started tygacil Objective - Vital Signs/Intake and Output Vital Signs (last 24 hours): Temp Pulse Resp BP Pulse Ox 98.1 F 85 20 120/80 98 12/22/17 08:00 12/22/17 08:00 12/22/17 08:00 12/22/17 08:00 12/22/17 08:00 Intake and Output: 12/22/17 12/22/17 06:59 18:59 Intake Total 300 Output Total 300 Balance 0 - Medications Medications: Current Medications Aspirin (Aspirin) 325 mg PO DAILY [facility] Last Admin: 12/22/17 09:29 Dose: 325 mg Enoxaparin Sodium (Lovenox) 40 mg SC DAILY [facility] Last Admin: 12/22/17 09:31 Dose: 40 mg Tigecycline 50 mg/ Sodium (Chloride) 100 mls @ 100 mls/hr IVPB Q12 [facility] Last Admin: 12/22/17 10:07 Dose: 100 mls/hr Insulin Aspart (Novolog) 0 unit SC ACHS [facility] PRN Reason: Protocol Last Admin: 12/22/17 07:57 Dose: Not Given Losartan Potassium (Cozaar) 50 mg PO DAILY [facility] Last Admin: 12/22/17 09:29 Dose: 50 mg Metformin HCl (Glucophage) 850 mg PO BID [facility] Last Admin: 12/22/17 09:29 Dose: 850 mg Pantoprazole Sodium (Protonix Ec Tab) 40 mg PO DAILY [facility] Last Admin: 12/22/17 09:29 Dose: 40 mg - Labs Labs: 12/15/17 11:22 12/15/17 12:57 PT 10.5 SECONDS (9.7-12.2) 12/15/17 11:22 INR 0.9 12/15/17 11:22 APTT 32 SECONDS (21-34) 12/15/17 11:22 - Constitutional Appears: Non-toxic, Chronically Ill - Head Exam Head Exam: NORMOCEPHALIC - ENT Exam ENT Exam: Mucous Membranes Dry - Respiratory Exam Respiratory Exam: Decreased Breath Sounds - Cardiovascular Exam Cardiovascular Exam: REGULAR RHYTHM - GI/Abdominal Exam GI & Abdominal Exam: Distended, Soft Assessment and Plan - Assessment and Plan (Free Text) Plan: 87yo female with dementia, was at the clinic today and reported she had chest pain so EMS was called. Per EMS, once they arrived at scene, patient reported she had no chest pain and but she had epigastric pain. A full HPI and ROS is limited due to dementia. [facility] for chest pain found to have UTI- ESBL + allergic to PCN started tygacil
[2017-12-22 14:42] LABS: BASO % 0.2 % (0.0-2.0); EOS # 0.1 K/uL (0.0-0.7); EOS % 1.2 % (0.0-4.0); HEMOGLOBIN 13.7 g/dL (11.0-16.0); LYMPH # 3.1 K/uL (1.0-4.3); LYMPH % 38.5 % (20.0-40.0); MEAN CELL VOLUME 97.1 fL (81.0-99.0); MEAN CORPUSCULAR HEMOGLOBIN 32.4 pg (27.0-31.0); MEAN CORPUSCULAR HGB CONC 33.4 g/dL (33.0-37.0); MEAN PLATELET VOLUME 7.4 fL (7.2-11.7); MONO # 0.6 K/uL (0.0-0.8); MONO % 7.8 % (0.0-10.0); NEUT # 4.2 K/uL (1.8-7.0); NEUT % 52.3 % (50.0-75.0); NRBC % 0.1 % (0.0-2.0); RBC 4.22 Mil/uL (3.80-5.20); RED CELL DISTRIBUTION WIDTH 15.3 % (11.5-14.5)
[2017-12-22 15:15] LABS: ALB/GLOB RATIO 0.9 (1.0-2.1); ALBUMIN 3.7 g/dL (3.5-5.0); ALT/SGPT 20 U/L (9-52); AST/SGOT 27 U/L (14-36); BLOOD UREA NITROGEN 28 mg/dL (7-17); CALCIUM 10.3 mg/dl (8.6-10.4); GFR AFRICAN-AMERICAN > 60; GFR NON-AFRICAN AMERICAN > 60
--- NOTE | 2017-12-22 18:55 | CP.PCM.PN ---
Subjective - Date & Time of Evaluation Date of Evaluation: 12/22/17 Time of Evaluation: 07:40 - Subjective Subjective: clinically same Objective - Vital Signs/Intake and Output Vital Signs (last 24 hours): Temp Pulse Resp BP Pulse Ox 98 F 81 20 128/79 97 12/22/17 15:15 12/22/17 16:51 12/22/17 15:15 12/22/17 16:51 12/22/17 16:51 Intake and Output: 12/22/17 12/22/17 06:59 18:59 Intake Total 300 340 Output Total 300 Balance 0 340 - Medications Medications: Current Medications Aspirin (Aspirin) 325 mg PO DAILY [facility] Last Admin: 12/22/17 09:29 Dose: 325 mg Enoxaparin Sodium (Lovenox) 40 mg SC DAILY [facility] Last Admin: 12/22/17 09:31 Dose: 40 mg Tigecycline 50 mg/ Sodium (Chloride) 100 mls @ 100 mls/hr IVPB Q12 [facility] Last Admin: 12/22/17 10:07 Dose: 100 mls/hr Insulin Aspart (Novolog) 0 unit SC ACHS [facility] PRN Reason: Protocol Last Admin: 12/22/17 11:53 Dose: Not Given Losartan Potassium (Cozaar) 50 mg PO DAILY [facility] Last Admin: 12/22/17 09:29 Dose: 50 mg Metformin HCl (Glucophage) 850 mg PO BID [facility] Last Admin: 12/22/17 09:29 Dose: 850 mg Pantoprazole Sodium (Protonix Ec Tab) 40 mg PO DAILY [facility] Last Admin: 12/22/17 09:29 Dose: 40 mg - Labs Labs: 12/22/17 14:36 12/22/17 14:36 PT 10.5 SECONDS (9.7-12.2) 12/15/17 11:22 INR 0.9 12/15/17 11:22 APTT 32 SECONDS (21-34) 12/15/17 11:22 - Constitutional Appears: Well - Head Exam Head Exam: ATRAUMATIC, NORMAL INSPECTION, NORMOCEPHALIC - Eye Exam Eye Exam: EOMI, Normal appearance, PERRL Pupil Exam: NORMAL ACCOMODATION, PERRL - ENT Exam ENT Exam: Mucous Membranes Moist, Normal Exam - Neck Exam Neck Exam: Full ROM, Normal Inspection. absent: Lymphadenopathy - Respiratory Exam Respiratory Exam: Decreased Breath Sounds - Cardiovascular Exam Cardiovascular Exam: REGULAR RHYTHM, +S1, +S2 - GI/Abdominal Exam GI & Abdominal Exam: Soft, Diminished Bowel Sounds - Rectal Exam Rectal Exam: Deferred
--- NOTE | 2017-12-22 20:08 | CT ---
EXAM: CT Head Without Intravenous Contrast EXAM DATE/TIME: Exam ordered 12/22/2017 5:36 PM CLINICAL HISTORY: 87 years old, female; Signs and symptoms; Altered mental status/memory loss and other: Agitation; Confusion or disorientation TECHNIQUE: Axial computed tomography images of the head/brain without intravenous contrast. All CT scans at this facility use one or more dose reduction techniques, viz.: automated exposure control; ma/kV adjustment per patient size (including targeted exams where dose is matched to indication; i.e. head); or iterative reconstruction technique. COMPARISON: No relevant prior studies available. FINDINGS: Artifacts: Motion artifact degrades image quality. Brain: Extensive low density is noted within the periventricular white matter extending into the randolph radiata and centrum semiovale bilaterally. Asymmetric low-density noted within the left medial temporal lobe appears to be related to beam hardening artifact from the skull base as the patient is rotated to the left.. There is generalized cortical atrophy. No hemorrhage. Ventricles: Unremarkable. No ventriculomegaly. Bones/joints: A portion of the left frontal bone Soft tissues: Unremarkable. Sinuses: Unremarkable as visualized. No acute sinusitis. Mastoid air cells: Unremarkable as visualized. No mastoid effusion. IMPRESSION: 1. Low motion artifact degrades image quality. Asymmetric low density in the left temporal lobe is likely related to beam hardening artifact from the skull base. Infarct not entirely excluded. MRI with diffusion weighted imaging or followup CT might be considered. 2. Generalized cerebral cortical atrophy. 3. Extensive chronic microvascular ischemic change within the deep white matter
[2017-12-23] MEDS: (Novolog) Insulin Aspart, Recombinant 100 u/ml 10 ml vial SC SCH ×4 (08:11→21:37)
[2017-12-23] MEDS: Enoxaparin 40 mg Syringe SC SCH (09:42)
[2017-12-23] MEDS: Pantoprazole 40 mg EC Tab PO SCH (09:42)
--- NOTE | 2017-12-23 11:38 | CP.PCM.PN ---
Subjective - Date & Time of Evaluation Date of Evaluation: 12/23/17 Time of Evaluation: 09:00 - Subjective Subjective: afeb on iv rx for uti esbl to cont same for 7 days then d/c Objective - Vital Signs/Intake and Output Vital Signs (last 24 hours): Temp Pulse Resp BP Pulse Ox 97.5 F L 80 20 124/76 99 12/23/17 00:00 12/23/17 00:00 12/23/17 00:00 12/23/17 00:00 12/23/17 00:00 - Medications Medications: Current Medications Aspirin (Aspirin) 325 mg PO DAILY [facility] Last Admin: 12/23/17 09:42 Dose: 325 mg Cyanocobalamin (Vitamin B12 1000 Mcg/Ml Inj) 1,000 mcg IM DAILY [facility] Stop: 12/25/17 10:01 Last Admin: 12/23/17 10:30 Dose: 1,000 mcg Tigecycline 50 mg/ Sodium (Chloride) 100 mls @ 100 mls/hr IVPB Q12 [facility] Last Admin: 12/23/17 10:31 Dose: 100 mls/hr Insulin Aspart (Novolog) 0 unit SC ACHS [facility] PRN Reason: Protocol Last Admin: 12/23/17 11:30 Dose: Not Given Losartan Potassium (Cozaar) 50 mg PO DAILY [facility] Last Admin: 12/23/17 09:42 Dose: 50 mg Metformin HCl (Glucophage) 850 mg PO BID [facility] Last Admin: 12/23/17 09:42 Dose: 850 mg Pantoprazole Sodium (Protonix Ec Tab) 40 mg PO DAILY [facility] Last Admin: 12/23/17 09:42 Dose: 40 mg - Labs Labs: 12/22/17 14:36 12/22/17 14:36 PT 10.5 SECONDS (9.7-12.2) 12/15/17 11:22 INR 0.9 12/15/17 11:22 APTT 32 SECONDS (21-34) 12/15/17 11:22 - Constitutional Appears: Non-toxic, Confused, Chronically Ill - Head Exam Head Exam: NORMOCEPHALIC - Eye Exam Eye Exam: PERRL - ENT Exam ENT Exam: Mucous Membranes Dry - Neck Exam Neck Exam: absent: Lymphadenopathy - Respiratory Exam Respiratory Exam: Decreased Breath Sounds - Cardiovascular Exam Cardiovascular Exam: REGULAR RHYTHM - GI/Abdominal Exam GI & Abdominal Exam: Distended - Rectal Exam Rectal Exam: Deferred Assessment and Plan - Assessment and Plan (Free Text) Plan: rx esbl uti mdro
--- NOTE | 2017-12-23 12:33 | CP.PCM.CON ---
History of Present Illness - History of Present Illness History of Present Illness: 87yo female with dementia, was at the clinic today and reported she had chest pain so EMS was called. Per EMS, once they arrived at scene, patient reported she had no chest pain and but she had epigastric pain. A full HPI and ROS is limited due to dementia. [facility] for chest pain found to have UTI- ESBL + allergic to PCN started tygacil Past Patient History - Past Medical History & Family History Past Medical History?: Yes - Past Social History Smoking Status: Never Smoked - CARDIAC Hx Hypotension: Yes Other/Comment: Hx of Precordial pain - NEUROLOGICAL Hx Alzheimer's Disease: Yes Hx Dementia: Yes - ENDOCRINE/METABOLIC Hx Diabetes Mellitus Type 2: Yes - MUSCULOSKELETAL/RHEUMATOLOGICAL Hx Falls: No - PSYCHIATRIC Hx Substance Use: No Meds Allergies/Adverse Reactions: Allergies Allergy/AdvReac Type Severity Reaction Status Date / Time Penicillins Allergy Verified 12/15/17 10:50 - Medications Medications: Current Medications Aspirin (Aspirin) 325 mg PO DAILY [facility] Last Admin: 12/23/17 09:42 Dose: 325 mg Cyanocobalamin (Vitamin B12 1000 Mcg/Ml Inj) 1,000 mcg IM DAILY [facility] Stop: 12/25/17 10:01 Last Admin: 12/23/17 10:30 Dose: 1,000 mcg Tigecycline 50 mg/ Sodium (Chloride) 100 mls @ 100 mls/hr IVPB Q12 [facility] Last Admin: 12/23/17 10:31 Dose: 100 mls/hr Insulin Aspart (Novolog) 0 unit SC ACHS [facility] PRN Reason: Protocol Last Admin: 12/23/17 11:30 Dose: Not Given Losartan Potassium (Cozaar) 50 mg PO DAILY [facility] Last Admin: 12/23/17 09:42 Dose: 50 mg Metformin HCl (Glucophage) 850 mg PO BID [facility] Last Admin: 12/23/17 09:42 Dose: 850 mg Pantoprazole Sodium (Protonix Ec Tab) 40 mg PO DAILY [facility] Last Admin: 12/23/17 09:42 Dose: 40 mg Results - Vital Signs Recent Vital Signs: Last Vital Signs Temp 97.5 F L 12/23/17 00:00 Pulse 80 12/23/17 00:00 Resp 20 12/23/17 00:00 BP 124/76 12/23/17 00:00 Pulse Ox 99 12/23/17 00:00 - Labs Result Diagrams: 12/22/17 14:36 12/22/17 14:36 Labs: Laboratory Results - last 24 hr 12/22/17 12/22/17 12/22/17 14:36 14:36 16:02 WBC 8.0 RBC 4.22 Hgb 13.7 Hct 41.0 MCV 97.1 MCH 32.4 H MCHC 33.4 RDW 15.3 H Plt Count 364 MPV 7.4 Neut % (Auto) 52.3 Lymph % (Auto) 38.5 [place] % (Auto) 7.8 Eos % (Auto) 1.2 Baso % (Auto) 0.2 Neut # (Auto) 4.2 Lymph # (Auto) 3.1 [place] # (Auto) 0.6 Eos # (Auto) 0.1 Baso # (Auto) 0.0 Sodium 139 Potassium 4.9 Chloride 104 Carbon Dioxide 25 Anion Gap 16 BUN 28 H Creatinine 0.8 Est GFR ( Amer) > 60 Est GFR (Non-Af Amer) > 60 POC Glucose (mg/dL) 99 Random Glucose 95 Calcium 10.3 Total Bilirubin 0.6 AST 27 ALT 20 Alkaline Phosphatase 116 Total Protein 7.8 Albumin 3.7 Globulin 4.1 H Albumin/Globulin Ratio 0.9 L Vitamin B12 Folate 12/22/17 12/23/17 12/23/17 21:29 06:42 08:07 WBC RBC Hgb Hct MCV MCH MCHC RDW Plt Count MPV Neut % (Auto) Lymph % (Auto) [place] % (Auto) Eos % (Auto) Baso % (Auto) Neut # (Auto) Lymph # (Auto) [place] # (Auto) Eos # (Auto) Baso # (Auto) Sodium Potassium Chloride Carbon Dioxide Anion Gap BUN Creatinine Est GFR ( Amer) Est GFR (Non-Af Amer) POC Glucose (mg/dL) 105 126 H Random Glucose Calcium Total Bilirubin AST ALT Alkaline Phosphatase Total Protein Albumin Globulin Albumin/Globulin Ratio Vitamin B12 < 159 L Folate 17.0 12/23/17 11:29 WBC RBC Hgb Hct MCV MCH MCHC RDW Plt Count MPV Neut % (Auto) Lymph % (Auto) [place] % (Auto) Eos % (Auto) Baso % (Auto) Neut # (Auto) Lymph # (Auto) [place] # (Auto) Eos # (Auto) Baso # (Auto) Sodium Potassium Chloride Carbon Dioxide Anion Gap BUN Creatinine Est GFR ( Amer) Est GFR (Non-Af Amer) POC Glucose (mg/dL) 104 Random Glucose Calcium Total Bilirubin AST ALT Alkaline Phosphatase Total Protein Albumin Globulin Albumin/Globulin Ratio Vitamin B12 Folate
--- NOTE | 2017-12-23 17:06 | CP.PCM.PN ---
Subjective - Date & Time of Evaluation Date of Evaluation: 12/23/17 Time of Evaluation: 07:40 - Subjective Subjective: clinically same Objective - Vital Signs/Intake and Output Vital Signs (last 24 hours): Temp Pulse Resp BP Pulse Ox 97 F L 84 20 113/78 97 12/23/17 16:44 12/23/17 16:44 12/23/17 16:44 12/23/17 16:44 12/23/17 16:44 Intake and Output: 12/23/17 12/23/17 06:59 18:59 Intake Total 350 Balance 350 - Medications Medications: Current Medications Aspirin (Aspirin) 325 mg PO DAILY [facility] Last Admin: 12/23/17 09:42 Dose: 325 mg Cyanocobalamin (Vitamin B12 1000 Mcg/Ml Inj) 1,000 mcg IM DAILY [facility] Stop: 12/25/17 10:01 Last Admin: 12/23/17 10:30 Dose: 1,000 mcg Tigecycline 50 mg/ Sodium (Chloride) 100 mls @ 100 mls/hr IVPB Q12 [facility] Last Admin: 12/23/17 10:31 Dose: 100 mls/hr Insulin Aspart (Novolog) 0 unit SC ACHS [facility] PRN Reason: Protocol Last Admin: 12/23/17 11:30 Dose: Not Given Losartan Potassium (Cozaar) 50 mg PO DAILY [facility] Last Admin: 12/23/17 09:42 Dose: 50 mg Metformin HCl (Glucophage) 850 mg PO BID [facility] Last Admin: 12/23/17 09:42 Dose: 850 mg Pantoprazole Sodium (Protonix Ec Tab) 40 mg PO DAILY [facility] Last Admin: 12/23/17 09:42 Dose: 40 mg - Labs Labs: 12/22/17 14:36 12/22/17 14:36 PT 10.5 SECONDS (9.7-12.2) 12/15/17 11:22 INR 0.9 12/15/17 11:22 APTT 32 SECONDS (21-34) 12/15/17 11:22 - Constitutional Appears: Well - Head Exam Head Exam: ATRAUMATIC, NORMAL INSPECTION, NORMOCEPHALIC - Eye Exam Eye Exam: EOMI, Normal appearance, PERRL Pupil Exam: NORMAL ACCOMODATION, PERRL - ENT Exam ENT Exam: Mucous Membranes Moist, Normal Exam - Neck Exam Neck Exam: Full ROM, Normal Inspection. absent: Lymphadenopathy - Respiratory Exam Respiratory Exam: Decreased Breath Sounds - Cardiovascular Exam Cardiovascular Exam: REGULAR RHYTHM, +S1, +S2 - GI/Abdominal Exam GI & Abdominal Exam: Soft, Diminished Bowel Sounds - Rectal Exam Rectal Exam: Deferred
--- NOTE | 2017-12-23 21:04 | CON ---
DATE: 12/23/2017. PSYCHIATRIC CONSULTATION Note, the patient is a very poor historian and collateral information taken from the chart as well as the staff as the patient has dementia and very confused. HISTORY OF PRESENT ILLNESS: This is a case of an 87-year-old female with history of Alzheimer's dementia. The patient was sent in for evaluation for chest pain. The patient was referred for comanagement as the patient has been having bouts of agitation and uncooperative with staff. The patient is combative at times. The patient also is very confused. The patient is currently one-to-one watch for monitor and referred for comanagement. Review of her labs showed the patient has very low B12 level, which is less than 159. Her folate is within normal levels. TSH was not done. The patient also showed signs of evidence of urinary tract infection and has been followed by Dr. Uriarte. Today, she is confused. She does not know where she is and she was asking somebody to sleep with her. The patient also is just confabulating and could not give much information. She had a CAT scan of the head done that showed generalized atrophy and also extensive chronic microvascular ischemic changes within the deep white matter as well as stated generalized cerebral cortical atrophy. The patient despite her confusion seems to be redirectable at this time but needs one-to-one watch. PAST PSYCHIATRIC HISTORY: The patient has a history of Alzheimer's dementia as well as also not taking any psych meds at this time. PAST MEDICAL HISTORY: The patient as stated has history of chest pain, as well as Alzheimer's dementia. Also note the patient has history of diabetes and hypertension. DRUG AND ALCOHOL HISTORY: Denies any. ALLERGIES: ALLERGIC TO PENICILLIN. PSYCHOSOCIAL HISTORY: The patient lives with her family. CURRENT MEDICATIONS: Include aspirin, Cozaar, Glucophage, Lovenox, NovoLog. Her UA showed presence of many bacteria, +1 for leukocyte esterase, urine wbc 9 and nitrite positive. As stated TSH was not done. Her WBC is 8, H and H is 13.7/41. PHYSICAL EXAMINATION: VITAL SIGNS: Temperature is 97.5, pulse rate 80, blood pressure 124/76, respirations 20 and oxygen saturation is 99%. REVIEW OF SYSTEMS: The patient is alert, verbal, but very confused. Review of system cannot be fully assessed due to her confusion. Other than that, she ate her breakfast and she is not in acute respiratory distress. The patient is redirectable. She was not complaining of chest pain, no headache. Appetite seems to be variable. The patient is ambulatory but needs constant redirection. Review of system as stated cannot be fully assessed due to her confusion. MENTAL STATUS EXAMINATION: Elderly female who looks stated age. The patient does not know her age, does not know birthday, but oriented to person. She was seen sitting in her bed with one-to-one watch. Speech is spontaneous. Affect is reactive. Mood is dysphoric and irritable. Thought process, confused. Thought content, no overt psychosis, no suicidal or chromidial ideation. Attention and memory seem to be impaired. Insight and judgment impaired. Impulse control is guarded at this time. IMPRESSION: Delirium, metabolic encephalopathy probably secondary to urinary tract infection as well B12 deficiency in top of senile onset dementia Alzheimer's type with mood changes, also history of diabetes and hypertension. Her last blood sugar random one was 126. PLAN AND RECOMMENDATIONS: The patient is seen, meds reviewed. We will keep the one-to-one for now. We will correct her B12, I will give her B12 supplements 1000 mcg IM daily for 3 days. We also check her TSH. We will keep the one-to-one watch, we will monitor blood sugar. We will hold of on any addition of psych meds for now. The patient is redirectable despite her confusion with one-to-one watch. Her main problem is her B12 deficiency as well as history of urinary tract infection. The patient is currently taking tigecycline for her UTI. Thank you for the consult. Zan Shahid MD [facility]BR[facility]
[2017-12-24] MEDS: (Novolog) Insulin Aspart, Recombinant 100 u/ml 10 ml vial SC SCH ×4 (08:02→22:15)
[2017-12-24] MEDS: Pantoprazole 40 mg EC Tab PO SCH (09:10)
--- NOTE | 2017-12-24 13:09 | PN ---
DATE: 12/24/2017. SUBJECTIVE: The patient is one to one watch monitoring. The patient was able to get the B12 injection with some reluctance, but was able to do it. Today, when seen she is still very confused but redirectable, conversing in Ethiopian. She was trying to disrobe her clothes according to the one to one. When we checked the temperature, the room temperature was 90. The patient was offered cold drinks and so she would not feel so hot and the room temperature was adjusted. The patient is not having a major behavioral problems, awaiting result of TSH, but the patient is getting B12 supplement and she is very deficient with B12. The patient also has history of Alzheimer's dementia. PHYSICAL EXAMINATION: VITAL SIGNS: Temperature 97.8, pulse 98, blood pressure 100/60, respirations 20 and oxygen saturation is 100%. The patient is also currently treated by Dr. Uriarte for UTI and was given tigecycline. REVIEW OF SYSTEMS: GENERAL: The patient is alert, but confused, conversing in Ethiopian, redirectable, seen in her room. The patient is trying to disrobe her clothes, but was asking for water we gave her cold water as the room was quite hot. SKIN: No diaphoresis. HEENT: No headache or dizziness. NECK: Supple. RESPIRATORY: No dyspnea. CARDIOVASCULAR: No chest pain. GASTROINTESTINAL: She is eating well with assistance. EXTREMITIES: Moving extremities. NEUROLOGIC: Alert with periods of confusion, complaining the room was very hot. GENITOURINARY: Mild dysuria. MUSCULOSKELETAL: Feels weak. MENTAL STATUS EXAMINATION: An elderly female who looks stated age, still oriented x1, very confused but rediractable. Speech is spontaneous, conversing in Ethiopian. Affect is reactive. Mood is dysphoric. Thought process, confused. Thought content, the patient was asking for water, the room was quite hot. No overt paranoia, no hallucinations. No suicidal or homidical ideation. Attention and memory seems to be impaired. Insight and judgment limited and impulse control is fair at this time. IMPRESSION: Delirium, metabolic encephalopathy secondary to urinary tract infection, as well as B12 deficiency, as well as history of dementia, Alzheimer's type with mood changes, as well as history of chest pain. PLAN AND RECOMMENDATIONS: The patient was seen. Meds reviewed. We will check a TSH, continue B12 supplement as ordered. Continue antibiotics for her UTI. According to the patient case coordinator, the daughter was to take her home. Right now, we will hold of any psyche meds. The patient despite her confusion is redirectable, but we will need to correct her B12 deficiency which will compound her dementia as well as to treat her UTI as ordered. Zan Shahid MD
--- NOTE | 2017-12-24 15:17 | CP.PCM.PN ---
Subjective - Date & Time of Evaluation Date of Evaluation: 12/24/17 Time of Evaluation: 07:40 - Subjective Subjective: clinically same Objective - Vital Signs/Intake and Output Vital Signs (last 24 hours): Temp Pulse Resp BP Pulse Ox 97.8 F 98 H 20 100/60 100 12/24/17 09:21 12/24/17 09:21 12/24/17 09:21 12/24/17 09:21 12/24/17 09:21 Intake and Output: 12/24/17 12/24/17 06:59 18:59 Intake Total 340 340 Output Total 400 Balance -60 340 - Medications Medications: Current Medications Aspirin (Aspirin) 325 mg PO DAILY [facility] Last Admin: 12/24/17 09:10 Dose: 325 mg Cyanocobalamin (Vitamin B12 1000 Mcg/Ml Inj) 1,000 mcg IM DAILY [facility] Stop: 12/25/17 10:01 Last Admin: 12/24/17 09:10 Dose: 1,000 mcg Tigecycline 50 mg/ Sodium (Chloride) 100 mls @ 100 mls/hr IVPB Q12 [facility] Last Admin: 12/24/17 10:10 Dose: 100 mls/hr Insulin Aspart (Novolog) 0 unit SC ACHS [facility] PRN Reason: Protocol Last Admin: 12/24/17 12:15 Dose: Not Given Losartan Potassium (Cozaar) 50 mg PO DAILY [facility] Last Admin: 12/24/17 09:11 Dose: Not Given Metformin HCl (Glucophage) 850 mg PO BID [facility] Last Admin: 12/24/17 09:10 Dose: 850 mg Pantoprazole Sodium (Protonix Ec Tab) 40 mg PO DAILY [facility] Last Admin: 12/24/17 09:10 Dose: 40 mg - Labs Labs: 12/22/17 14:36 12/22/17 14:36 PT 10.5 SECONDS (9.7-12.2) 12/15/17 11:22 INR 0.9 12/15/17 11:22 APTT 32 SECONDS (21-34) 12/15/17 11:22 - Constitutional Appears: Well - Head Exam Head Exam: ATRAUMATIC, NORMAL INSPECTION, NORMOCEPHALIC - Eye Exam Eye Exam: EOMI, Normal appearance, PERRL Pupil Exam: NORMAL ACCOMODATION, PERRL - ENT Exam ENT Exam: Mucous Membranes Moist, Normal Exam - Neck Exam Neck Exam: Full ROM, Normal Inspection. absent: Lymphadenopathy - Respiratory Exam Respiratory Exam: Decreased Breath Sounds - Cardiovascular Exam Cardiovascular Exam: REGULAR RHYTHM, +S1, +S2 - GI/Abdominal Exam GI & Abdominal Exam: Soft, Diminished Bowel Sounds - Rectal Exam Rectal Exam: Deferred
--- NOTE | 2017-12-24 18:55 | CP.PCM.PN ---
Subjective - Date & Time of Evaluation Date of Evaluation: 12/24/17 Time of Evaluation: 07:00 - Subjective Subjective: iv rx completed ok to d/c Objective - Vital Signs/Intake and Output Vital Signs (last 24 hours): Temp Pulse Resp BP Pulse Ox 97.7 F 83 20 125/96 H 98 12/24/17 15:15 12/24/17 15:15 12/24/17 15:15 12/24/17 15:15 12/24/17 15:15 Intake and Output: 12/24/17 12/24/17 06:59 18:59 Intake Total 340 340 Output Total 400 Balance -60 340 - Medications Medications: Current Medications Aspirin (Aspirin) 325 mg PO DAILY [facility] Last Admin: 12/24/17 09:10 Dose: 325 mg Cyanocobalamin (Vitamin B12 1000 Mcg/Ml Inj) 1,000 mcg IM DAILY [facility] Stop: 12/25/17 10:01 Last Admin: 12/24/17 09:10 Dose: 1,000 mcg Tigecycline 50 mg/ Sodium (Chloride) 100 mls @ 100 mls/hr IVPB Q12 [facility] Last Admin: 12/24/17 10:10 Dose: 100 mls/hr Insulin Aspart (Novolog) 0 unit SC ACHS [facility] PRN Reason: Protocol Last Admin: 12/24/17 16:30 Dose: Not Given Losartan Potassium (Cozaar) 50 mg PO DAILY [facility] Last Admin: 12/24/17 09:11 Dose: Not Given Metformin HCl (Glucophage) 850 mg PO BID [facility] Last Admin: 12/24/17 18:13 Dose: 850 mg Pantoprazole Sodium (Protonix Ec Tab) 40 mg PO DAILY [facility] Last Admin: 12/24/17 09:10 Dose: 40 mg - Labs Labs: 12/22/17 14:36 12/22/17 14:36 PT 10.5 SECONDS (9.7-12.2) 12/15/17 11:22 INR 0.9 12/15/17 11:22 APTT 32 SECONDS (21-34) 12/15/17 11:22 - Constitutional Appears: Non-toxic, Chronically Ill - Head Exam Head Exam: NORMOCEPHALIC - Eye Exam Eye Exam: PERRL - ENT Exam ENT Exam: Mucous Membranes Dry - Neck Exam Neck Exam: absent: Lymphadenopathy - Respiratory Exam Respiratory Exam: Decreased Breath Sounds - Cardiovascular Exam Cardiovascular Exam: REGULAR RHYTHM, +S1, +S2 - GI/Abdominal Exam GI & Abdominal Exam: Distended - Rectal Exam Rectal Exam: Deferred Assessment and Plan (1) ESBL (extended spectrum beta-lactamase) producing bacteria infection Status: Acute (2) ESBL (extended spectrum beta-lactamase) producing bacteria infection Status: Acute (3) Infection due to ESBL-producing Escherichia coli Status: Acute
[2017-12-25] MEDS: (Novolog) Insulin Aspart, Recombinant 100 u/ml 10 ml vial SC SCH ×2 (07:55→12:20)
[2017-12-25 09:00] VITALS: BP 101/61; TEMP 97.8; O2SAT 95
[2017-12-25] MEDS: Pantoprazole 40 mg EC Tab PO SCH (10:04)
--- NOTE | 2017-12-25 13:47 | CP.PCM.PN ---
Subjective - Date & Time of Evaluation Date of Evaluation: 12/25/17 Time of Evaluation: 07:30 - Subjective Subjective: clinically same Objective - Vital Signs/Intake and Output Vital Signs (last 24 hours): Temp Pulse Resp BP Pulse Ox 97.8 F 98 H 20 101/61 95 12/25/17 08:59 12/25/17 08:59 12/25/17 08:59 12/25/17 08:59 12/25/17 08:59 Intake and Output: 12/25/17 12/25/17 06:59 18:59 Intake Total 640 Output Total 450 Balance 190 - Medications Medications: Current Medications Aspirin (Aspirin) 325 mg PO DAILY [facility] Last Admin: 12/25/17 10:04 Dose: 325 mg Tigecycline 50 mg/ Sodium (Chloride) 100 mls @ 100 mls/hr IVPB Q12 [facility] Last Admin: 12/25/17 10:03 Dose: 100 mls/hr Insulin Aspart (Novolog) 0 unit SC ACHS [facility] PRN Reason: Protocol Last Admin: 12/25/17 12:20 Dose: Not Given Losartan Potassium (Cozaar) 50 mg PO DAILY [facility] Last Admin: 12/25/17 10:04 Dose: Not Given Metformin HCl (Glucophage) 850 mg PO BID [facility] Last Admin: 12/25/17 10:03 Dose: 850 mg Pantoprazole Sodium (Protonix Ec Tab) 40 mg PO DAILY [facility] Last Admin: 12/25/17 10:04 Dose: 40 mg - Labs Labs: 12/22/17 14:36 12/22/17 14:36 PT 10.5 SECONDS (9.7-12.2) 12/15/17 11:22 INR 0.9 12/15/17 11:22 APTT 32 SECONDS (21-34) 12/15/17 11:22 - Constitutional Appears: Well - Head Exam Head Exam: ATRAUMATIC, NORMAL INSPECTION, NORMOCEPHALIC - Eye Exam Eye Exam: EOMI, Normal appearance, PERRL Pupil Exam: NORMAL ACCOMODATION, PERRL - ENT Exam ENT Exam: Mucous Membranes Moist, Normal Exam - Neck Exam Neck Exam: Full ROM, Normal Inspection. absent: Lymphadenopathy - Respiratory Exam Respiratory Exam: Decreased Breath Sounds - Cardiovascular Exam Cardiovascular Exam: REGULAR RHYTHM, +S1, +S2 - GI/Abdominal Exam GI & Abdominal Exam: Soft, Diminished Bowel Sounds - Rectal Exam Rectal Exam: Deferred
[2017-12-25 15:10] VITALS: PULSE 88
--- NOTE | 2017-12-25 17:08 | CP.PCM.PN ---
Subjective - Date & Time of Evaluation Date of Evaluation: 12/25/17 Time of Evaluation: 11:00 - Subjective Subjective: Awake, confused, demented but no agitation. Need constant safety watch.No acute distress. Objective - Vital Signs/Intake and Output Vital Signs (last 24 hours): Temp Pulse Resp BP Pulse Ox 97.8 F 88 20 101/61 95 12/25/17 08:59 12/25/17 12:45 12/25/17 08:59 12/25/17 12:45 12/25/17 12:45 Intake and Output: 12/25/17 12/25/17 06:59 18:59 Intake Total 640 220 Output Total 450 Balance 190 220 - Labs Labs: 12/22/17 14:36 12/22/17 14:36 PT 10.5 SECONDS (9.7-12.2) 12/15/17 11:22 INR 0.9 12/15/17 11:22 APTT 32 SECONDS (21-34) 12/15/17 11:22 Assessment and Plan - Assessment and Plan (Free Text) Assessment: 87 year old female with dementia, admitted with agitation, UTI, seen and examined. Completed IV antibiotic therapy, cleared by DR Uriarte. Discussed with DR Minor, advised melatonin for insomnia at night. The daughter plan to take her home today. Discussed with DR Hood Bravo, agree with the discharge plan. Advised to follow up with PMD in 1 week.
== END 2017-12-25 14:16 | disposition home or self-care (01) | DRG 320 ==
LOC: C.ER 10:35 → C.9E 15:19 → C.6T 20:41 → OBSVTOIN 12-17 16:31 → C.3T 12-18 18:12
PROVIDERS: ADMIT Internal Medicine Nephrology; ATTEND Internal Medicine Nephrology
DX: N39.0 Urinary tract infection, site not specified (principal); G93.41 Metabolic encephalopathy; R07.89 Other chest pain; E11.9 Type 2 diabetes mellitus without complications; G30.1 Alzheimer's disease with late onset; F02.81 Dementia in other diseases classified elsewhere, unspecified severity, with behavioral disturbance; B96.20 Unspecified Escherichia coli [E. coli] as the cause of diseases classified elsewhere; Z16.12 Extended spectrum beta lactamase (ESBL) resistance; F05 Delirium due to known physiological condition; I10 Essential (primary) hypertension; I45.10 Unspecified right bundle-branch block; E53.8 Deficiency of other specified B group vitamins; R45.1 Restlessness and agitation; G47.00 Insomnia, unspecified; Z91.14 Patient's other noncompliance with medication regimen; Z88.0 Allergy status to penicillin

== ENCOUNTER 2018-04-09 14:13 | Inpatient (IN) | payer OTHER ==
[2018-04-09 14:23] VITALS: BMI 22.6
[2018-04-09 15:46] LABS: BASO % 0.4 % (0.0-2.0); EOS # 0.1 K/uL (0.0-0.7); EOS % 1.4 % (0.0-4.0); HEMOGLOBIN 12.8 g/dL (11.0-16.0); LYMPH # 2.7 K/uL (1.0-4.3); LYMPH % 27.2 % (20.0-40.0); MEAN CORPUSCULAR HEMOGLOBIN 31.2 pg (27.0-31.0); MONO # 0.8 K/uL (0.0-0.8); MONO % 8.2 % (0.0-10.0); NEUT # 6.4 K/uL (1.8-7.0); NEUT % 62.8 % (50.0-75.0); RBC 4.11 Mil/uL (3.80-5.20); RED CELL DISTRIBUTION WIDTH 13.6 % (11.5-14.5); WHITE BLOOD COUNT 10.1 K/uL (4.8-10.8)
[2018-04-09 15:49] LABS: MEAN CELL VOLUME 94.5 fL (81.0-99.0)
[2018-04-09 15:56] LABS: ALB/GLOB RATIO 1.2 (1.0-2.1); ALBUMIN 4.1 g/dL (3.5-5.0); ALT/SGPT 14 U/L (9-52); AST/SGOT 29 U/L (14-36); BLOOD UREA NITROGEN 17 mg/dL (7-17); CALCIUM 10.5 mg/dl (8.6-10.4); GFR AFRICAN-AMERICAN > 60; GFR NON-AFRICAN AMERICAN > 60
--- NOTE | 2018-04-09 16:02 | C.PDOC ---
History Of Present Illness 88-year-old female with a PMHx of diabetes hypertension, and Alzheimer's, brought in to the ED for evaluation of jerking body movements since 10AM today. Daughter states that every few seconds patient is exhibiting involuntary jerks involving all extremities. Of note, yesterday she tripped and injured her right foot. No head trauma or LOC. On arrival patient appears confused, and is at her baseline as per family. History obtained from daughter at bedside. Daughter otherwise denies any fever, changes behavior, chest pain, SOB, nausea, vomiting , or diarrhea. Patient is incontinent of urine and wears a diaper, but otherwise daughter notes normal urine color and amount. Time Seen by Provider: 04/09/18 14:40 Chief Complaint (Nursing): Weakness/Neurological Deficit History Per: Patient History/Exam Limitations: clinical condition (dementia) Onset/Duration Of Symptoms: Hrs Current Symptoms Are (Timing): Still Present Past Medical History Reviewed: Historical Data, Nursing Documentation, Vital Signs Vital Signs: Last Vital Signs Temp 98.0 F 04/09/18 14:25 Pulse 78 04/09/18 17:01 Resp 19 04/09/18 17:01 BP 134/86 04/09/18 17:01 Pulse Ox 100 04/09/18 17:01 - Medical History PMH: Alzheimer's Disease, Dementia, Diabetes, HTN Surgical History: Family History: States: No Known Family Hx - Social History Hx Alcohol Use: No Hx Substance Use: No - Immunization History Hx Tetanus Toxoid Vaccination: No Hx Influenza Vaccination: No Hx Pneumococcal Vaccination: No Review Of Systems Except As Marked, All Systems Reviewed And Found Negative. Musculoskeletal: Positive for: Other (involuntary jerks) Physical Exam - Physical Exam Appears: No Acute Distress, Confused (at baseline as per family) Skin: Normal Color, Warm, Dry Head: Atraumatic, Normacephalic Eye(s): bilateral: PERRL, EOMI Nose: Normal Oral Mucosa: Moist Neck: Normal ROM, Supple Chest: Symmetrical, No Deformity, No Tenderness Cardiovascular: Rhythm Regular, No Murmur Respiratory: Normal Breath Sounds, No Rales, No Rhonchi, No Wheezing Gastrointestinal/Abdominal: Soft, No Tenderness, No Distention, No Guarding Back: Normal Inspection, No Vertebral Tenderness Extremity: Tenderness (Right foot is diffusely tender to palpation), Capillary Refill (< 2 sec), No Deformity, Swelling (Mild swelling of right foot), Other ( Involuntary jerks diffusely) Pulses: Left Radial: Normal, Right Radial: Normal, Left Dorsalis Pedis: Normal, Right Dorsalis Pedis: Normal Neurological/Psych: Other (Awake but confused, see above) Disoriented To: Place, Situation ED Course And Treatment - Laboratory Results Result Diagrams: 04/09/18 15:41 04/09/18 15:41 Lab Interpretation: Abnormal (Elevated potassium and calcium) O2 Sat by Pulse Oximetry: 98 (RA) Pulse Ox Interpretation: Normal Medical Decision Making Medical Decision Making: Initial Impression: Involuntary jerks Time: 15:13 Initial Plan: --CMP --TSH --Troponin I --CBC --Urinalysis --Chest X-Ray --X-ray right foot --CT Head w/o contrast --Neurology consult requested Labs reviewed: K 5.5, Ca 10.[address] Nance and will admit to medical surgical floor Dr. White notified and would like to administer keppra Disposition Discussed With .: Russell Nance Jr. Doctor Will See Patient In The: Hospital Counseled Patient/Family Regarding: Studies Performed, Diagnosis - Disposition Referrals: Jasmeet White MD [Staff Provider] - Disposition: HOSPITALIZED Disposition Time: 17:35 Condition: FAIR Forms: [facility] (Gambian) - Clinical Impression Clinical Impression: Myoclonus, Mental status change - Scribe Statement The provider has reviewed the documentation as recorded by the Scribe (Rebecca Hayes) Provider Attestation: All medical record entries made by the Scribe were at my direction and personally dictated by me. I have reviewed the chart and agree that the record accurately reflects my personal performance of the history, physical exam, medical decision making, and the department course for this patient. I have also personally directed, reviewed, and agree with the discharge instructions and disposition.
--- NOTE | 2018-04-09 16:29 | RAD ---
HISTORY: r/o pneumonia COMPARISON: Portable chest 12/15/2017. FINDINGS: LUNGS: No active pulmonary disease. PLEURA: No significant pleural effusion identified, no pneumothorax apparent. CARDIOVASCULAR: Stable cardiac silhouette. No pulmonary vascular congestion. Gross aortic ectasis reiterated. Radiodensity medial to the trachea opposite the level of the aortic arch may reflect double aortic arch or ectatic great vessels or even substernal thyroid. OSSEOUS STRUCTURES: No significant abnormalities. VISUALIZED UPPER ABDOMEN: Normal. OTHER FINDINGS: None. IMPRESSION: No interval acute cardiopulmonary disease. Right paratracheal soft tissue prominence unchanged. Please see discussion above. CT may be useful for further characterization if clinically warranted.
--- NOTE | 2018-04-09 16:32 | RAD ---
PROCEDURE: Right Foot Radiographs. HISTORY: right foot injury COMPARISON: None. FINDINGS: BONES: No acute fracture or destructive bony lesion identified. Chronic healed fracture 5th metatarsal bone. Diffuse osteopenia suggests osteoporosis. JOINTS: A mild hallux valgus deformity is appreciated. Sclerotic articular surfaces are identified throughout the interphalangeal joints diffusely throughout the foot, compatible with osteoarthritis. No definite osteophyte development. Vascular calcifications seen the mid to hindfoot dorsal soft tissues with soft tissue edema surrounding the midfoot. SOFT TISSUES: As above. OTHER FINDINGS: None. IMPRESSION: 1. No acute fracture or destructive bony lesion appreciated. Chronic healed 5th metatarsal bone fracture. 2. Diffuse osteopenia suggests osteoporosis. 3. Mild hallux valgus deformity. 4. 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 5. Midfoot soft tissue edema is appreciated diffusely.
[2018-04-09] MEDS ORDERED: levETIRAcetam 500 MG in Sodium Chloride 0.9% 100 ML IVPB STA (16:50)
--- NOTE | 2018-04-09 17:03 | CT ---
PROCEDURE: CT HEAD WITHOUT CONTRAST. HISTORY: new onset jerking movement COMPARISON: 12/22/2017 TECHNIQUE: Axial computed tomography images were obtained through the head/brain without intravenous contrast. Radiation dose: Total exam DLP = 762 mGy-cm. This CT exam was performed using one or more of the following dose reduction techniques: Automated exposure control, adjustment of the mA and/or kV according to patient size, and/or use of iterative reconstruction technique. FINDINGS: HEMORRHAGE: No intracranial hemorrhage. BRAIN: No mass effect or edema. There is extensive generalize cerebral atrophy or prominent mostly periventricular chronic microvascular ischemic changes. VENTRICLES: Prominent commensurate with the degree of atrophy CALVARIUM: Unremarkable. PARANASAL SINUSES: Unremarkable as visualized. No significant inflammatory changes. MASTOID AIR CELLS: Unremarkable as visualized. No inflammatory changes. OTHER FINDINGS: None. IMPRESSION: No interval intracranial hemorrhage or mass effect. There is extensive generalize cerebral atrophy or prominent mostly periventricular chronic microvascular ischemic changes. Comments: There is less motion artifact current study compared the prior study the prior hypodensity in the medial left temporal lobe is not reproduced on this exam
[2018-04-09 19:02] LABS: URINE BACTERIA FEW (<OCC); URINE BILIRUBIN NEGATIVE (NEGATIVE); URINE BLOOD NEGATIVE (NEGATIVE); URINE CLARITY Hazy (Clear); URINE COLOR Yellow (YELLOW); URINE GLUCOSE (UA) NORMAL (Normal); URINE LEUKOCYTE ESTERASE NEG Leu/uL (Negative); URINE PROTEIN NEGATIVE (NEGATIVE); URINE UROBILINOGEN NORMAL mg/dL (0.2-1.0)
--- NOTE | 2018-04-09 19:58 | CP.PCM.HP ---
History of Present Illness - History of Present Illness History of Present Illness: HPI: Patient is an 88 year old female with a history of HTN, DM, and alzhemiers disease, who presents to the ED with complaints of new onset jerking movements. Family is at bedside providing the history. Per the family, patient started "shaking a lot" starting at 1pm in the afternoon and the shaking lasted approximately one hour. The patient had no complaints during the episode, nor in the ED. Per the family, they immediately took her to the ED. Per resident in the ED, the patient was having jerking/twitching movements during their examination. Review of systems not obtained due to patient's history of alzheimers dementia. PMHx: HTN, DM, alzheimer disease SurgHx: cesarian sections x1; cataract surgery 5 years ago FamHx: denies SocHx: denies tobacco, alcohol, and drug use; lives with daughter (Terrie) Allergies: PCN (unknown reaction) Medication: Metformin 850mg PO BID, Benadryl 25mg PO HS, Memantine 5mg PO BID, Losartan 50mg PO Daily, Aspirin 81mg PO daily. Present on Admission - Present on Admission Any Indicators Present on Admission: No Review of Systems - Review of Systems Systems not reviewed;Unavailable: Dementia Past Patient History - Past Medical History & Family History Past Medical History?: Yes - Past Social History Smoking Status: Never Smoked - CARDIAC Hx Hypertension: Yes - NEUROLOGICAL Hx Alzheimer's Disease: Yes Hx Dementia: Yes - ENDOCRINE/METABOLIC Hx Diabetes Mellitus Type 2: Yes - MUSCULOSKELETAL/RHEUMATOLOGICAL Hx Falls: No - PSYCHIATRIC Hx Substance Use: No - SURGICAL HISTORY Hx Section: Yes (x1) Other/Comment: eye surgery - ANESTHESIA Hx Anesthesia: Yes Hx Anesthesia Reactions: No Meds Allergies/Adverse Reactions: Allergies Allergy/AdvReac Type Severity Reaction Status Date / Time Penicillins Allergy Verified 04/09/18 14:23 Physical Exam - Constitutional Appears: No Acute Distress, Confused - Head Exam Head Exam: ATRAUMATIC, NORMOCEPHALIC - Eye Exam Eye Exam: EOMI. absent: Normal appearance (arcus senilis b/l) - ENT Exam ENT Exam: Mucous Membranes Dry Additional comments: poor dentition - Neck Exam Neck exam: Positive for: Normal Inspection - Respiratory Exam Respiratory Exam: Clear to Auscultation Bilateral, NORMAL BREATHING PATTERN. absent: Rales, Rhonchi, Wheezes, Respiratory Distress - Cardiovascular Exam Cardiovascular Exam: REGULAR RHYTHM, +S1, +S2 - GI/Abdominal Exam GI & Abdominal Exam: Distended, Normal Bowel Sounds, Soft. absent: Firm, Tenderness - Extremities Exam Extremities exam: Positive for: joint swelling (right ankle and foot swelling; sensation intact, full ROM, no tenderness to palpation), pedal pulses present. Negative for: tenderness - Back Exam Back exam: absent: rash noted - Neurological Exam Neurological exam: Altered, CN II-XII Intact Additional comments: No abnormal movements, twitching, or jerking during examination - Psychiatric Exam Psychiatric exam: Normal Affect, Normal Mood - Skin Skin Exam: Dry, Intact, Normal Color, Warm Results - Vital Signs Recent Vital Signs: Last Vital Signs Temp 98.0 F 04/09/18 14:25 Pulse 78 04/09/18 17:01 Resp 19 04/09/18 17:01 BP 134/86 04/09/18 17:01 Pulse Ox 98 04/09/18 17:36 - Labs Result Diagrams: 04/09/18 15:41 04/09/18 20:51 Labs: Laboratory Results - last 24 hr 04/09/18 04/09/18 04/09/18 15:41 15:41 16:09 WBC 10.1 RBC 4.11 Hgb 12.8 Hct 38.8 MCV 94.5 D MCH 31.2 H MCHC 33.0 RDW 13.6 Plt Count 284 MPV 7.0 L Neut % (Auto) 62.8 Lymph % (Auto) 27.2 [place] % (Auto) 8.2 Eos % (Auto) 1.4 Baso % (Auto) 0.4 Neut # (Auto) 6.4 Lymph # (Auto) 2.7 [place] # (Auto) 0.8 Eos # (Auto) 0.1 Baso # (Auto) 0.0 Sodium 143 Potassium 5.5 H Chloride 105 Carbon Dioxide 29 Anion Gap 14 BUN 17 Creatinine 0.8 Est GFR ( Amer) > 60 Est GFR (Non-Af Amer) > 60 Random Glucose 85 Calcium 10.5 H Total Bilirubin 0.6 AST 29 ALT 14 Alkaline Phosphatase 87 Troponin I < 0.0120 Total Protein 7.6 Albumin 4.1 Globulin 3.5 Albumin/Globulin Ratio 1.2 TSH 3rd Generation 1.61 Urine Color Urine Clarity Urine pH Ur Specific [place] Urine Protein Urine Glucose (UA) Urine Ketones Urine Blood Urine Nitrate Urine Bilirubin Urine Urobilinogen Ur Leukocyte Esterase Urine WBC (Auto) Urine RBC (Auto) Urine Bacteria 04/09/18 18:45 WBC RBC Hgb Hct MCV MCH MCHC RDW Plt Count MPV Neut % (Auto) Lymph % (Auto) [place] % (Auto) Eos % (Auto) Baso % (Auto) Neut # (Auto) Lymph # (Auto) [place] # (Auto) Eos # (Auto) Baso # (Auto) Sodium Potassium Chloride Carbon Dioxide Anion Gap BUN Creatinine Est GFR ( Amer) Est GFR (Non-Af Amer) Random Glucose Calcium Total Bilirubin AST ALT Alkaline Phosphatase Troponin I Total Protein Albumin Globulin Albumin/Globulin Ratio TSH 3rd Generation Urine Color Yellow Urine Clarity Hazy Urine pH 7.0 Ur Specific [place] 1.010 Urine Protein Negative Urine Glucose (UA) Normal Urine Ketones Negative Urine Blood Negative Urine Nitrate Negative Urine Bilirubin Negative Urine Urobilinogen Normal Ur Leukocyte Esterase Neg Urine WBC (Auto) 4 Urine RBC (Auto) 3 Urine Bacteria Few H Assessment & Plan (1) Myoclonus Assessment and Plan: Neurology, Dr. White, consulted by ER physcian--> ordered EEG and Keppra 500mg IVP once Continue Keppra 500mg PO BID Neuro checks Seizure and fall precautions Status: Acute (2) Alzheimer's dementia Assessment and Plan: Continue home medication: Memantine 5mg PO BID Status: Acute (3) Hypertension Assessment and Plan: Continue home medication: Losartan 50mg PO daily Continue to monitor vitals Status: Acute (4) Diabetes mellitus Assessment and Plan: Home medication: Metformin 850mg PO BID Accuchecks ACHS ISS Hypoglycemic protocol Status: Acute (5) Electrolyte abnormality Assessment and Plan: K+ at admission 5.5 Repeat BMP: K+ 5.1 Continue to monitor Status: Acute (6) Prophylactic measure Assessment and Plan: SCDs Heart Healthy diet, 2Na Seizure precautions Fall precautions PT Status: Acute
[2018-04-09 21:05] LABS: BLOOD UREA NITROGEN 16 mg/dL (7-17); CALCIUM 10.5 mg/dl (8.6-10.4); GFR AFRICAN-AMERICAN > 60; GFR NON-AFRICAN AMERICAN > 60
[2018-04-09] MEDS: (Novolin R) Insulin Human Regular 100 units/ml vial SC SCH (22:15)
[2018-04-10 06:43] LABS: BASO % 0.3 % (0.0-2.0); EOS # 0.2 K/uL (0.0-0.7); EOS % 1.9 % (0.0-4.0); HEMOGLOBIN 13.3 g/dL (11.0-16.0); LYMPH # 2.8 K/uL (1.0-4.3); LYMPH % 34.1 % (20.0-40.0); MEAN CELL VOLUME 93.5 fL (81.0-99.0); MEAN CORPUSCULAR HEMOGLOBIN 31.6 pg (27.0-31.0); MEAN CORPUSCULAR HGB CONC 33.8 g/dL (33.0-37.0); MEAN PLATELET VOLUME 7.1 fL (7.2-11.7); MONO # 0.7 K/uL (0.0-0.8); MONO % 8.9 % (0.0-10.0); NEUT # 4.4 K/uL (1.8-7.0); NEUT % 54.8 % (50.0-75.0); RBC 4.22 Mil/uL (3.80-5.20); RED CELL DISTRIBUTION WIDTH 13.4 % (11.5-14.5); WHITE BLOOD COUNT 8.1 K/uL (4.8-10.8)
[2018-04-10 06:59] LABS: ALBUMIN 4.1 g/dL (3.5-5.0); BLOOD UREA NITROGEN 15 mg/dL (7-17); CALCIUM 10.3 mg/dl (8.6-10.4); GFR AFRICAN-AMERICAN > 60; GFR NON-AFRICAN AMERICAN > 60
[2018-04-10 07:00] LABS: ALT/SGPT 10 U/L (9-52); AST/SGOT 27 U/L (14-36)
[2018-04-10] MEDS: (Novolin R) Insulin Human Regular 100 units/ml vial SC SCH ×4 (07:51→22:00)
--- NOTE | 2018-04-10 14:03 | CP.PCM.CON ---
History of Present Illness - History of Present Illness History of Present Illness: Neurology Consultation Note: The patient is an 88-year-old woman with a past medical history of HTN, DM, and alzhemiers disease, who presents to the ED with complaints of new onset jerking movements. She was witnessed having these movement in the ED as well and was given Keppra. These movements seem to have subsided now. The patient was asleep when I saw her, but when she was awakened, she became angry and moved all extremities while using some profanity in Bengali (she was upset when I woke her up). There were no focal neurological deficits noted. No abnormal movements noted. CT head showed extensive cerebral atrophy consistent with dementia. Review of Systems - Review of Systems All systems: reviewed and no additional remarkable complaints except Past Patient History - Past Medical History & Family History Past Medical History?: Yes - Past Social History Smoking Status: Never Smoked - CARDIAC Hx Hypertension: Yes - PULMONARY Hx Asthma: Yes - NEUROLOGICAL Hx Alzheimer's Disease: Yes Hx Dementia: Yes - ENDOCRINE/METABOLIC Hx Diabetes Mellitus Type 2: Yes - MUSCULOSKELETAL/RHEUMATOLOGICAL Hx Falls: No - GENITOURINARY/GYNECOLOGICAL Hx Incontinence: Yes - PSYCHIATRIC Hx Substance Use: No - SURGICAL HISTORY Hx Section: Yes (x1) Other/Comment: eye surgery - ANESTHESIA Hx Anesthesia: Yes Hx Anesthesia Reactions: No Meds Allergies/Adverse Reactions: Allergies Allergy/AdvReac Type Severity Reaction Status Date / Time Penicillins Allergy Verified 04/09/18 14:23 - Medications Medications: Current Medications Aspirin (Aspirin Chewable) 81 mg PO DAILY [facility] Last Admin: 04/10/18 10:42 Dose: 81 mg Heparin Sodium (Porcine) (Heparin) 5,000 units SC Q12H [facility] Last Admin: 04/10/18 10:48 Dose: 5,000 units Insulin Human Regular (Novolin R) 0 unit SC ACHS [facility] PRN Reason: Protocol Last Admin: 04/10/18 12:05 Dose: Not Given Levetiracetam (Keppra) 500 mg PO BID [facility] Last Admin: 04/10/18 10:42 Dose: 500 mg Losartan Potassium (Cozaar) 50 mg PO DAILY [facility] Last Admin: 04/10/18 10:42 Dose: 50 mg Memantine (Namenda) 5 mg PO BID [facility] Last Admin: 04/10/18 10:43 Dose: 5 mg Physical Exam - Neurological Exam Neurological exam: Altered, CN II-XII Intact, Reflexes Normal Additional comments: Moves all extremities, sensation is intact. No myoclonic jerks noted. Results - Vital Signs Recent Vital Signs: Last Vital Signs Temp 98 F 04/10/18 08:00 Pulse 108 H 04/10/18 08:00 Resp 22 04/10/18 08:00 BP 121/80 04/10/18 08:00 Pulse Ox 97 04/10/18 08:00 - Labs Result Diagrams: 04/10/18 06:32 04/10/18 06:32 Labs: Laboratory Results - last 24 hr 04/09/18 04/09/18 04/09/18 15:41 15:41 16:09 WBC 10.1 RBC 4.11 Hgb 12.8 Hct 38.8 MCV 94.5 D MCH 31.2 H MCHC 33.0 RDW 13.6 Plt Count 284 MPV 7.0 L Neut % (Auto) 62.8 Lymph % (Auto) 27.2 [place] % (Auto) 8.2 Eos % (Auto) 1.4 Baso % (Auto) 0.4 Neut # (Auto) 6.4 Lymph # (Auto) 2.7 [place] # (Auto) 0.8 Eos # (Auto) 0.1 Baso # (Auto) 0.0 Sodium 143 Potassium 5.5 H Chloride 105 Carbon Dioxide 29 Anion Gap 14 BUN 17 Creatinine 0.8 Est GFR ( Amer) > 60 Est GFR (Non-Af Amer) > 60 POC Glucose (mg/dL) Random Glucose 85 Hemoglobin A1c Calcium 10.5 H Phosphorus Magnesium Total Bilirubin 0.6 AST 29 ALT 14 Alkaline Phosphatase 87 Troponin I < 0.0120 Total Protein 7.6 Albumin 4.1 Globulin 3.5 Albumin/Globulin Ratio 1.2 Vitamin B12 25-OH Vitamin D Total TSH 3rd Generation 1.61 Urine Color Urine Clarity Urine pH Ur Specific [place] Urine Protein Urine Glucose (UA) Urine Ketones Urine Blood Urine Nitrate Urine Bilirubin Urine Urobilinogen Ur Leukocyte Esterase Urine WBC (Auto) Urine RBC (Auto) Urine Bacteria 04/09/18 04/09/18 04/09/18 18:45 20:28 20:51 WBC RBC Hgb Hct MCV MCH MCHC RDW Plt Count MPV Neut % (Auto) Lymph % (Auto) [place] % (Auto) Eos % (Auto) Baso % (Auto) Neut # (Auto) Lymph # (Auto) [place] # (Auto) Eos # (Auto) Baso # (Auto) Sodium 146 Potassium 5.1 Chloride 105 Carbon Dioxide 29 Anion Gap 17 BUN 16 Creatinine 0.8 Est GFR ( Amer) > 60 Est GFR (Non-Af Amer) > 60 POC Glucose (mg/dL) 150 H Random Glucose 145 H Hemoglobin A1c Calcium 10.5 H Phosphorus Magnesium Total Bilirubin AST ALT Alkaline Phosphatase Troponin I Total Protein Albumin Globulin Albumin/Globulin Ratio Vitamin B12 25-OH Vitamin D Total TSH 3rd Generation Urine Color Yellow Urine Clarity Hazy Urine pH 7.0 Ur Specific [place] 1.010 Urine Protein Negative Urine Glucose (UA) Normal Urine Ketones Negative Urine Blood Negative Urine Nitrate Negative Urine Bilirubin Negative Urine Urobilinogen Normal Ur Leukocyte Esterase Neg Urine WBC (Auto) 4 Urine RBC (Auto) 3 Urine Bacteria Few H 04/09/18 04/10/18 04/10/18 21:41 02:03 06:32 WBC 8.1 RBC 4.22 Hgb 13.3 Hct 39.5 MCV 93.5 MCH 31.6 H MCHC 33.8 RDW 13.4 Plt Count 306 MPV 7.1 L Neut % (Auto) 54.8 Lymph % (Auto) 34.1 [place] % (Auto) 8.9 Eos % (Auto) 1.9 Baso % (Auto) 0.3 Neut # (Auto) 4.4 Lymph # (Auto) 2.8 [place] # (Auto) 0.7 Eos # (Auto) 0.2 Baso # (Auto) 0.0 Sodium Potassium Chloride Carbon Dioxide Anion Gap BUN Creatinine Est GFR ( Amer) Est GFR (Non-Af Amer) POC Glucose (mg/dL) 149 H 150 H Random Glucose Hemoglobin A1c Calcium Phosphorus Magnesium Total Bilirubin AST ALT Alkaline Phosphatase Troponin I Total Protein Albumin Globulin Albumin/Globulin Ratio Vitamin B12 25-OH Vitamin D Total TSH 3rd Generation Urine Color Urine Clarity Urine pH Ur Specific [place] Urine Protein Urine Glucose (UA) Urine Ketones Urine Blood Urine Nitrate Urine Bilirubin Urine Urobilinogen Ur Leukocyte Esterase Urine WBC (Auto) Urine RBC (Auto) Urine Bacteria 04/10/18 04/10/18 04/10/18 06:32 07:30 07:39 WBC RBC Hgb Hct MCV MCH MCHC RDW Plt Count MPV Neut % (Auto) Lymph % (Auto) [place] % (Auto) Eos % (Auto) Baso % (Auto) Neut # (Auto) Lymph # (Auto) [place] # (Auto) Eos # (Auto) Baso # (Auto) Sodium 143 Potassium 4.0 Chloride 102 Carbon Dioxide 31 H Anion Gap 14 BUN 15 Creatinine 0.7 Est GFR ( Amer) > 60 Est GFR (Non-Af Amer) > 60 POC Glucose (mg/dL) 131 H Random Glucose 100 Hemoglobin A1c 6.2 Calcium 10.3 Phosphorus 3.6 Magnesium 1.9 Total Bilirubin 0.7 AST 27 ALT 10 Alkaline Phosphatase 96 Troponin I Total Protein 8.0 Albumin 4.1 Globulin 3.9 Albumin/Globulin Ratio 1.0 Vitamin B12 25-OH Vitamin D Total TSH 3rd Generation Urine Color Urine Clarity Urine pH Ur Specific [place] Urine Protein Urine Glucose (UA) Urine Ketones Urine Blood Urine Nitrate Urine Bilirubin Urine Urobilinogen Ur Leukocyte Esterase Urine WBC (Auto) Urine RBC (Auto) Urine Bacteria 04/10/18 04/10/18 07:39 07:39 WBC RBC Hgb Hct MCV MCH MCHC RDW Plt Count MPV Neut % (Auto) Lymph % (Auto) [place] % (Auto) Eos % (Auto) Baso % (Auto) Neut # (Auto) Lymph # (Auto) [place] # (Auto) Eos # (Auto) Baso # (Auto) Sodium Potassium Chloride Carbon Dioxide Anion Gap BUN Creatinine Est GFR ( Amer) Est GFR (Non-Af Amer) POC Glucose (mg/dL) Random Glucose Hemoglobin A1c Calcium Phosphorus Magnesium Total Bilirubin AST ALT Alkaline Phosphatase Troponin I Total Protein Albumin Globulin Albumin/Globulin Ratio Vitamin B12 242 25-OH Vitamin D Total 30.4 TSH 3rd Generation Urine Color Urine Clarity Urine pH Ur Specific [place] Urine Protein Urine Glucose (UA) Urine Ketones Urine Blood Urine Nitrate Urine Bilirubin Urine Urobilinogen Ur Leukocyte Esterase Urine WBC (Auto) Urine RBC (Auto) Urine Bacteria Assessment & Plan (1) Seizure Assessment and Plan: The patient seems to have responded well to Keppra. However, I recommend switching to Depakote so that we can also assist with her behavioral changes. I will switch her to Depakote 500 mg BID. An EEG is also recommended. Continue conservative management and treat possible infection. Thank you. Status: Acute Priority: High
[2018-04-10] MEDS: Divalproex 500 mg DR Tab PO SCH (17:57)
[2018-04-10 19:06] VITALS: RESP 20
--- NOTE | 2018-04-10 19:08 | CP.PCM.PN ---
Subjective - Date & Time of Evaluation Date of Evaluation: 04/10/18 Time of Evaluation: 19:03 - Subjective Subjective: Patient seen and examined at bedside,. Unable to tolerate EEG. confused about where she is . Does not complain of any pain, no nausea or vomiting. No fever or chills. Objective - Vital Signs/Intake and Output Vital Signs (last 24 hours): Temp Pulse Resp BP Pulse Ox 98 F 108 H 22 121/80 97 04/10/18 08:00 04/10/18 08:00 04/10/18 08:00 04/10/18 08:00 04/10/18 08:00 Intake and Output: 04/10/18 04/11/18 18:59 06:59 Intake Total 480 Balance 480 - Medications Medications: Current Medications Aspirin (Aspirin Chewable) [address] [facility] Last Admin: 04/10/18 10:42 Dose: 81 mg Divalproex Sodium (Depakote Dr) [address] [facility] Last Admin: 04/10/18 17:57 Dose: 500 mg Heparin Sodium (Porcine) (Heparin) 5,[address] [facility] Last Admin: 04/10/18 10:48 Dose: 5,000 units Insulin Human Regular (Novolin R) [address] [facility] PRN Reason: Protocol Last Admin: 04/10/18 17:56 Dose: 2 units Losartan Potassium (Cozaar) [address] [facility] Last Admin: 04/10/18 10:42 Dose: 50 mg Memantine (Namenda) [address] [facility] Last Admin: 04/10/18 17:57 Dose: 5 mg - Labs Labs: 04/10/18 06:32 04/10/18 06:32 - Constitutional Appears: Well - Head Exam Head Exam: ATRAUMATIC, NORMAL INSPECTION, NORMOCEPHALIC - Eye Exam Eye Exam: EOMI, Normal appearance, PERRL Pupil Exam: NORMAL ACCOMODATION, PERRL - ENT Exam ENT Exam: Mucous Membranes Moist, Normal Exam - Neck Exam Neck Exam: Full ROM, Normal Inspection. absent: Lymphadenopathy - Respiratory Exam Respiratory Exam: Clear to Ausculation Bilateral, NORMAL BREATHING PATTERN - Cardiovascular Exam Cardiovascular Exam: REGULAR RHYTHM, +S1, +S2. absent: Murmur - GI/Abdominal Exam GI & Abdominal Exam: Soft, Normal Bowel Sounds. absent: Distended, Tenderness - Extremities Exam Extremities Exam: Full ROM, Normal Capillary Refill, Normal Inspection. absent : Joint Swelling, Pedal Edema - Back Exam Back Exam: NORMAL INSPECTION - Neurological Exam Neurological Exam: Alert, Awake, CN II-XII Intact, Normal Gait. absent: Oriented x3 - Psychiatric Exam Psychiatric exam: Normal Affect, Normal Mood - Skin Skin Exam: Dry, Intact, Normal Color, Warm Assessment and Plan (1) Alzheimer's dementia Assessment & Plan: Was brought it because supposedly some intermittent twitching. Patient could not tolerate EEG. None of this twitching was observed by myself or the staff. Started on Depakote by neurology. Stable to be transferred to NH or home with family tomorrow. Status: Chronic
[2018-04-11] MEDS: (Novolin R) Insulin Human Regular 100 units/ml vial SC SCH ×4 (07:56→21:36)
[2018-04-11 09:11] LABS: BASO # 0.1 K/uL (0.0-0.2); BASO % 0.8 % (0.0-2.0); EOS # 0.1 K/uL (0.0-0.7); EOS % 1.6 % (0.0-4.0); HEMOGLOBIN 12.3 g/dL (11.0-16.0); LYMPH # 2.1 K/uL (1.0-4.3); LYMPH % 24.8 % (20.0-40.0); MEAN CELL VOLUME 93.7 fL (81.0-99.0); MEAN CORPUSCULAR HEMOGLOBIN 31.9 pg (27.0-31.0); MEAN PLATELET VOLUME 7.2 fL (7.2-11.7); MONO # 0.6 K/uL (0.0-0.8); MONO % 6.8 % (0.0-10.0); NEUT # 5.5 K/uL (1.8-7.0); NRBC % 0.1 % (0.0-2.0); RBC 3.86 Mil/uL (3.80-5.20); RED CELL DISTRIBUTION WIDTH 13.7 % (11.5-14.5); WHITE BLOOD COUNT 8.4 K/uL (4.8-10.8)
[2018-04-11 09:22] LABS: ALB/GLOB RATIO 1.1 (1.0-2.1); ALBUMIN 3.6 g/dL (3.5-5.0); ALT/SGPT 13 U/L (9-52); AST/SGOT 25 U/L (14-36); BLOOD UREA NITROGEN 26 mg/dL (7-17); CALCIUM 10.1 mg/dl (8.6-10.4); GFR AFRICAN-AMERICAN > 60; GFR NON-AFRICAN AMERICAN 52
[2018-04-11] MEDS: Divalproex 500 mg DR Tab PO SCH ×2 (10:00→17:42)
--- NOTE | 2018-04-11 15:11 | CP.PCM.PN ---
Subjective - Date & Time of Evaluation Date of Evaluation: 04/11/18 Time of Evaluation: 11:20 - Subjective Subjective: Patient seen and examined at bedside. No acute events reported by nursing staff overnight. Patient is sitting in eating lunch. No further twitching motion reported. She appears to be at baseline mental status. When asked where is she at, she replied "here". Objective - Vital Signs/Intake and Output Vital Signs (last 24 hours): Temp Pulse Resp BP Pulse Ox 97.2 F L 95 H 20 133/92 H 95 04/11/18 08:00 04/11/18 08:00 04/11/18 08:00 04/11/18 08:00 04/11/18 08:00 Intake and Output: 04/11/18 04/11/18 06:59 18:59 Intake Total 600 360 Balance 600 360 - Medications Medications: Current Medications Aspirin (Aspirin Chewable) 81 mg PO DAILY COUNTS INCLUDE 234 BEDS AT THE [facility] Last Admin: 04/11/18 10:00 Dose: 81 mg Divalproex Sodium (Depakote Dr) 500 mg PO BID COUNTS INCLUDE 234 BEDS AT THE [facility] Last Admin: 04/11/18 10:00 Dose: 500 mg Heparin Sodium (Porcine) (Heparin) 5,000 units SC Q12H COUNTS INCLUDE 234 BEDS AT THE [facility] Last Admin: 04/11/18 10:02 Dose: 5,000 units Insulin Human Regular (Novolin R) 0 unit SC ACHS COUNTS INCLUDE 234 BEDS AT THE [facility] PRN Reason: Protocol Last Admin: 04/11/18 12:27 Dose: 2 units Losartan Potassium (Cozaar) 50 mg PO DAILY COUNTS INCLUDE 234 BEDS AT THE [facility] Last Admin: 04/11/18 10:00 Dose: 50 mg Memantine (Namenda) 5 mg PO BID COUNTS INCLUDE 234 BEDS AT THE [facility] Last Admin: 04/11/18 10:00 Dose: 5 mg - Labs Labs: 04/11/18 08:58 04/11/18 08:58 - Additional Findings Additional findings: - Constitutional Appears: Well - Head Exam Head Exam: ATRAUMATIC, NORMAL INSPECTION, NORMOCEPHALIC - Eye Exam Eye Exam: EOMI, Normal appearance, PERRL Pupil Exam: NORMAL ACCOMODATION, PERRL - ENT Exam ENT Exam: Mucous Membranes Moist, Normal Exam - Neck Exam Neck Exam: Full ROM, Normal Inspection. absent: Lymphadenopathy - Respiratory Exam Respiratory Exam: Clear to Ausculation Bilateral, NORMAL BREATHING PATTERN - Cardiovascular Exam Cardiovascular Exam: REGULAR RHYTHM, +S1, +S2. absent: Murmur - GI/Abdominal Exam GI & Abdominal Exam: Soft, Normal Bowel Sounds. absent: Distended, Tenderness - Extremities Exam Extremities Exam: Full ROM, Normal Capillary Refill, Normal Inspection. absent : Joint Swelling, Pedal Edema - Back Exam Back Exam: NORMAL INSPECTION - Neurological Exam Neurological Exam: Alert, Awake, CN II-XII Intact, Normal Gait. absent: Oriented x3 - Psychiatric Exam Psychiatric exam: Normal Affect, Normal Mood - Skin Skin Exam: Dry, Intact, Normal Color, Warm Assessment and Plan - Assessment and Plan (Free Text) Assessment: (1) Myoclonus Assessment and Plan: No further episodes appreciated Neurology, Dr. White, consulted by ER physcian Unable to tolerate EEG Depakote 500mg po Neuro checks Seizure and fall precautions Status: Acute (2) Alzheimer's dementia Assessment and Plan: Continue home medication: Memantine 5mg PO BID Status: Acute (3) Hypertension Assessment and Plan: Continue home medication: Losartan 50mg PO daily Continue to monitor vitals Status: Acute (4) Diabetes mellitus Assessment and Plan: Home medication: Metformin 850mg PO BID Accuchecks ACHS ISS Hypoglycemic protocol Status: Acute (5) Electrolyte abnormality Assessment and Plan: K+ at admission 5.5 Repeat BMP: K+ 5.1 Continue to monitor Status: Acute (6) Prophylactic measure Assessment and Plan: SCDs Heart Healthy diet, 2Na Seizure precautions Fall precautions PT Status: Acute Dispo: spoke to case management. Patient's family member requests to not to proceed with [facility] inspector care/rehab. Patient is to be discharged home tomorrow.
[2018-04-12 00:22] VITALS: O2SAT 96
[2018-04-12 07:31] VITALS: BP 169/90; PULSE 73; TEMP 98.5
[2018-04-12] MEDS: (Novolin R) Insulin Human Regular 100 units/ml vial SC SCH ×2 (07:36→11:45)
[2018-04-12 07:53] LABS: BASO % 0.4 % (0.0-2.0); EOS # 0.1 K/uL (0.0-0.7); HEMOGLOBIN 12.8 g/dL (11.0-16.0); LYMPH # 2.5 K/uL (1.0-4.3); LYMPH % 35.8 % (20.0-40.0); MEAN CELL VOLUME 93.8 fL (81.0-99.0); MEAN CORPUSCULAR HEMOGLOBIN 31.9 pg (27.0-31.0); MEAN PLATELET VOLUME 7.1 fL (7.2-11.7); MONO # 0.6 K/uL (0.0-0.8); MONO % 8.7 % (0.0-10.0); NEUT # 3.8 K/uL (1.8-7.0); NEUT % 53.1 % (50.0-75.0); RED CELL DISTRIBUTION WIDTH 13.6 % (11.5-14.5); WHITE BLOOD COUNT 7.1 K/uL (4.8-10.8)
[2018-04-12 08:10] LABS: ALB/GLOB RATIO 1.1 (1.0-2.1); ALBUMIN 3.7 g/dL (3.5-5.0); ALT/SGPT 18 U/L (9-52); AST/SGOT 26 U/L (14-36); BLOOD UREA NITROGEN 18 mg/dL (7-17); CALCIUM 9.7 mg/dl (8.6-10.4); GFR AFRICAN-AMERICAN > 60; GFR NON-AFRICAN AMERICAN > 60
--- NOTE | 2018-04-12 08:44 | CP.PCM.DIS ---
Provider - Provider Date of Admission: 04/09/18 17:34 Attending physician: Russell Nance Jr, MD Primary care physician: Ronan Subramanian Consults: Dr. White Time Spent in preparation of Discharge (in minutes): 40 Diagnosis - Discharge Diagnosis (1) Myoclonus Status: Resolved (2) Alzheimer's dementia Status: Chronic (3) Diabetes mellitus Status: Chronic (4) Hypertension Status: Chronic Hospital Course - Lab Results Lab Results: Most Recent Lab Values WBC 7.1 K/uL (4.8-10.8) 04/12/18 07:39 RBC 4.00 Mil/uL (3.80-5.20) 04/12/18 07:39 Hgb 12.8 g/dL (11.0-16.0) 04/12/18 07:39 Hct 37.5 % (34.0-47.0) 04/12/18 07:39 MCV 93.8 fL (81.0-99.0) 04/12/18 07:39 MCH 31.9 pg (27.0-31.0) H 04/12/18 07:39 MCHC 34.0 g/dL (33.0-37.0) 04/12/18 07:39 RDW 13.6 % (11.5-14.5) 04/12/18 07:39 Plt Count 294 K/uL (130-400) 04/12/18 07:39 MPV 7.1 fL (7.2-11.7) L 04/12/18 07:39 Neut % (Auto) 53.1 % (50.0-75.0) 04/12/18 07:39 Lymph % (Auto) 35.8 % (20.0-40.0) 04/12/18 07:39 [place] % (Auto) 8.7 % (0.0-10.0) 04/12/18 07:39 Eos % (Auto) 2.0 % (0.0-4.0) 04/12/18 07:39 Baso % (Auto) 0.4 % (0.0-2.0) 04/12/18 07:39 Neut # (Auto) 3.8 K/uL (1.8-7.0) 04/12/18 07:39 Lymph # (Auto) 2.5 K/uL (1.0-4.3) 04/12/18 07:39 [place] # (Auto) 0.6 K/uL (0.0-0.8) 04/12/18 07:39 Eos # (Auto) 0.1 K/uL (0.0-0.7) 04/12/18 07:39 Baso # (Auto) 0.0 K/uL (0.0-0.2) 04/12/18 07:39 Sodium 141 mmol/L (132-148) 04/12/18 07:39 Potassium 4.9 mmol/L (3.6-5.2) 04/12/18 07:39 Chloride 106 mmol/L (98-107) 04/12/18 07:39 Carbon Dioxide 22 mmol/L (22-30) 04/12/18 07:39 Anion Gap 18 (10-20) 04/12/18 07:39 BUN 18 mg/dL (7-17) H 04/12/18 07:39 Creatinine 0.7 mg/dL (0.7-1.2) 04/12/18 07:39 Est GFR ( Amer) > 60 04/12/18 07:39 Est GFR (Non-Af Amer) > 60 04/12/18 07:39 POC Glucose (mg/dL) 128 mg/dL (65-110) H 04/12/18 07:07 Random Glucose 114 mg/dL (65-105) H 04/12/18 07:39 Hemoglobin A1c 6.2 % (4.2-6.5) 04/10/18 07:39 Calcium 9.7 mg/dl (8.6-10.4) 04/12/18 07:39 Phosphorus 2.9 mg/dL (2.5-4.5) 04/12/18 07:39 Magnesium 2.0 mg/dL (1.6-2.3) 04/12/18 07:39 Total Bilirubin 0.6 mg/dL (0.2-1.3) 04/12/18 07:39 AST 26 U/L (14-36) 04/12/18 07:39 ALT 18 U/L (9-52) 04/12/18 07:39 Alkaline Phosphatase 86 U/L (38-126) 04/12/18 07:39 Troponin I < 0.0120 ng/mL (0.00-0.120) 04/09/18 15:41 Total Protein 7.1 g/dL (6.3-8.3) 04/12/18 07:39 Albumin 3.7 g/dL (3.5-5.0) 04/12/18 07:39 Globulin 3.4 gm/dL (2.2-3.9) 04/12/18 07:39 Albumin/Globulin Ratio 1.1 (1.0-2.1) 04/12/18 07:39 Vitamin B12 242 pg/mL (239-931) 04/10/18 07:39 25-OH Vitamin D Total 30.4 NG/ML (30.0-100.0) 04/10/18 07:39 TSH 3rd Generation 1.61 mIU/L (0.46-4.68) 04/09/18 16:09 Urine Color Yellow (YELLOW) 04/09/18 18:45 Urine Clarity Hazy (Clear) 04/09/18 18:45 Urine pH 7.0 (5.0-8.0) 04/09/18 18:45 Ur Specific Gordon 1.010 (1.003-1.030) 04/09/18 18:45 Urine Protein Negative mg/dL (NEGATIVE) 04/09/18 18:45 Urine Glucose (UA) Normal mg/dL (Normal) 04/09/18 18:45 Urine Ketones Negative mg/dL (NEGATIVE) 04/09/18 18:45 Urine Blood Negative (NEGATIVE) 04/09/18 18:45 Urine Nitrate Negative (NEGATIVE) 04/09/18 18:45 Urine Bilirubin Negative (NEGATIVE) 04/09/18 18:45 Urine Urobilinogen Normal mg/dL (0.2-1.0) 04/09/18 18:45 Ur Leukocyte Esterase Neg Krysta/uL (Negative) 04/09/18 18:45 Urine WBC (Auto) 4 /hpf (0-5) 18 18:45 Urine RBC (Auto) 3 /hpf (0-3) 04/09/18 18:45 Urine Bacteria Few (<OCC) H 04/09/18 18:45 - Hospital Course Hospital Course: 88 year old female with a history of HTN, DM, and alzhemiers disease, who presents to the ED with complaints of new onset jerking movements. Family is at bedside providing the history. Per the family, patient started "shaking a lot" starting at 1pm in the afternoon and the shaking lasted approximately one hour. The patient had no complaints during the episode, nor in the ED. Per the family , they immediately took her to the ED. Per resident in the ED, the patient was having jerking/twitching movements during their examination. Review of systems not obtained due to patient's history of alzheimers dementia. In the ED imaging studies including CT head and Foot x-ray show no acute abnormalities. Patient's potassium was found to be 5.5 and calcium 10.5. Her labs were otherwise unremarkable. Neurology Dr. White was consulted for involuntary jerking, whom recommended switching Keppra to Depaokte 500mg IBD. Patient was unable to tolerate EEG. No jerking motion was observed throughout her hospital stay. Patient remains at baseline mental status. Patient's family refused patient to be place in [place]. Patient will follow up with PMD and Dr. White for further medication adjustments. Above is brief summary of patient's hospital course, please refer to medical records. - Date & Time of H&P Date of H&P: 04/11/18 Time of H&P: 19:58 Discharge Exam - Additional Findings Additional findings: - Constitutional Appears: Well - Head Exam Head Exam: ATRAUMATIC, NORMAL INSPECTION, NORMOCEPHALIC - Eye Exam Eye Exam: EOMI, Normal appearance, PERRL Pupil Exam: NORMAL ACCOMODATION, PERRL - ENT Exam ENT Exam: Mucous Membranes Moist, Normal Exam - Neck Exam Neck Exam: Full ROM, Normal Inspection. absent: Lymphadenopathy - Respiratory Exam Respiratory Exam: Clear to Ausculation Bilateral, NORMAL BREATHING PATTERN - Cardiovascular Exam Cardiovascular Exam: REGULAR RHYTHM, +S1, +S2. absent: Murmur - GI/Abdominal Exam GI & Abdominal Exam: Soft, Normal Bowel Sounds. absent: Distended, Tenderness - Extremities Exam Extremities Exam: Full ROM, Normal Capillary Refill, Normal Inspection. absent : Joint Swelling, Pedal Edema - Back Exam Back Exam: NORMAL INSPECTION - Neurological Exam Neurological Exam: Alert, Awake, CN II-XII Intact, Normal Gait. absent: Oriented x3 - Psychiatric Exam Psychiatric exam: Normal Affect, Normal Mood - Skin Skin Exam: Dry, Intact, Normal Color, Warm Discharge Plan - Discharge Medications Prescriptions: Divalproex [Depakote DR] 500 mg PO BID #60 tcp - Follow Up Plan Condition: GOOD Disposition: HOME/ ROUTINE Instructions: Type 2 Diabetes, Myoclonus, Dementia (DC), Valproic Acid and Derivatives, Hypertension (DC), Hypertension (GEN) Additional Instructions: Patient is to follow up with PMD and neurology Dr. White within one week after hospital discharge Patient will stop taking Keppra at home and start Depakote 500mg BID as prescribed until further instruction from Dr. White Patient resume another home medications Go to the nearest emergency room if symptoms return or worsen Referrals: Jasmeet White MD [Staff Provider] - Russell Nance Jr., MD [Medical Doctor] - Ronan Garcia MD [Non-Staff] -
[2018-04-12] MEDS: Divalproex 500 mg DR Tab PO SCH (10:27)
== END 2018-04-12 14:30 | disposition home or self-care (01) | DRG 34 ==
LOC: C.ER 14:13 → C.9E 17:34 → C.3T 20:01
PROVIDERS: ADMIT Internal Medicine; ATTEND Internal Medicine
DX: G25.3 Myoclonus (principal); R32 Unspecified urinary incontinence; E11.9 Type 2 diabetes mellitus without complications; F02.80 Dementia in other diseases classified elsewhere, unspecified severity, without behavioral disturbance, psychotic disturbance, mood disturbance, and anxiety; G30.9 Alzheimer's disease, unspecified; I10 Essential (primary) hypertension; J45.909 Unspecified asthma, uncomplicated; Z79.84 Long term (current) use of oral hypoglycemic drugs; Z79.899 Other long term (current) drug therapy

== ENCOUNTER 2018-10-04 14:27 | Emergency (ER) | payer OTHER ==
[2018-10-04 14:28] VITALS: BMI 22.6
[2018-10-04 14:51] VITALS: O2SAT 100
--- NOTE | 2018-10-04 15:21 | C.PDOC ---
History Of Present Illness 88 year old female presents to the ED complaining of bilateral knee pain and swelling for the last 2 days. Reports she is unable to walk because of the pain. Denies any falls or trauma. Reports prior history of knee fluid accumulation and effusion. Notes she is going to see PMD tomorrow. Time Seen by Provider: 10/04/18 15:06 Chief Complaint (Nursing): Lower Extremity Problem/Injury History Per: Patient History/Exam Limitations: no limitations Onset/Duration Of Symptoms: Days (2) Current Symptoms Are (Timing): Still Present Past Medical History Reviewed: Historical Data, Nursing Documentation, Vital Signs Vital Signs: Last Vital Signs Temp 98.8 F 10/04/18 14:43 Pulse 101 H 10/04/18 14:43 Resp 20 10/04/18 14:43 BP 100/68 10/04/18 14:43 Pulse Ox 100 10/04/18 14:43 - Medical History PMH: Alzheimer's Disease, Asthma, Dementia, Diabetes, HTN Surgical History: Family History: States: No Known Family Hx - Social History Hx Alcohol Use: No Hx Substance Use: No - Immunization History Hx Tetanus Toxoid Vaccination: No Hx Influenza Vaccination: No Hx Pneumococcal Vaccination: No Review Of Systems Constitutional: Negative for: Fever, Chills Musculoskeletal: Positive for: Other (b/l knee pain and swelling) Neurological: Negative for: Weakness, Numbness Physical Exam - Physical Exam Appears: Non-toxic, No Acute Distress Skin: Warm, Dry, No Rash Head: Normacephalic Eye(s): bilateral: Normal Inspection Neck: Supple Chest: Symmetrical Cardiovascular: Rhythm Regular Respiratory: No Rales, No Rhonchi, No Wheezing Extremity: No Normal ROM (painful flexion of right knee ), No Deformity, Swelling (mild anterior swelling to right knee), No Other (crepitus ) Neurological/Psych: Oriented x3, Normal Speech Gait: Other (uses walker) ED Course And Treatment O2 Sat by Pulse Oximetry: 100 (RA) Pulse Ox Interpretation: Normal Medical Decision Making Medical Decision Making: Plan - Tylenol 650mg PO - Motrin 400mg PO Patient needs transportation back home. RN to call [employer] transportation Disposition Counseled Patient/Family Regarding: Diagnosis, Need For Followup - Disposition Referrals: Ashley Osman FNP [Advanced Practice Nurse] - Disposition: HOME/ ROUTINE Disposition Time: 16:40 Condition: STABLE Additional Instructions: Please take pain medicine as needed. Follow up with your doctor Prescriptions: Acetaminophen [Tylenol Arthritis] 650 mg PO Q8 PRN #30 tablet.er PRN Reason: Pain, Moderate (4-7) Ibuprofen [Motrin] 1 tab PO Q8 PRN #30 tab PRN Reason: Pain Instructions: Knee Pain (DC) Forms: [employer] (Nauruan) Print Language: SURINAMESE - POA Present On Arrival: None - Clinical Impression Clinical Impression: Arthralgia of knee - PA / [employer] ADMINISTRATOR / Resident Statement MD/DO has reviewed & agrees with the documentation as recorded. - Scribe Statement The provider has reviewed the documentation as recorded by the Scribe So Shaw All medical record entries made by the Senthil were at my direction and personally dictated by me. I have reviewed the chart and agree that the record accurately reflects my personal performance of the history, physical exam, medical decision making, and the department course for this patient. I have also personally directed, reviewed, and agree with the discharge instructions and disposition.
[2018-10-04 20:41] VITALS: PULSE 80; RESP 18; TEMP 97
[2018-10-04 20:58] VITALS: BP 145/60
== END 2018-10-04 20:57 | disposition home or self-care (01) ==
LOC: C.ER 14:27
DX: M25.562 Pain in left knee (principal); M25.561 Pain in right knee; E11.9 Type 2 diabetes mellitus without complications; I10 Essential (primary) hypertension; F02.80 Dementia in other diseases classified elsewhere, unspecified severity, without behavioral disturbance, psychotic disturbance, mood disturbance, and anxiety; G30.9 Alzheimer's disease, unspecified

== ENCOUNTER 2019-03-17 19:06 | Inpatient (IN) | payer OTHER ==
[2019-03-17 19:26] VITALS: BMI 24.7
[2019-03-17] MEDS ORDERED: Sodium Chloride 0.9% 1,000 ML IV ONE ×2 (19:39→19:40)
[2019-03-17 19:57] LABS: ABG ALLEN TEST POS; ARTERIAL BLOOD GAS HCO3 26.9 mmol/L (21-28); ARTERIAL BLOOD GAS HEMOGLOBIN 9.9 g/dL (11.7-17.4); ARTERIAL BLOOD GAS O2 SAT 97.7 % (95-98); ARTERIAL BLOOD GAS PCO2 35 mm/Hg (35-45); ARTERIAL BLOOD GAS PH 7.48 (7.35-7.45); ARTERIAL BLOOD GAS PO2 76 mm/Hg (80-100); ARTERIAL BLOOD GAS TCO2 27.2 mmol/L (22-28)
--- NOTE | 2019-03-17 19:58 | C.PDOC ---
History Of Present Illness Patient is a 89 year old female, with a PMHx of HTN and diabetes, who presents to the ED with her family c/o feeling weak and difficulty eating at home as per family. Family denies any head injury or passing out episode. States she has been bed riden for 2 weeks and unable to ambulate. Time Seen by Provider: 03/17/19 19:33 Chief Complaint (Nursing): Altered Mental Status History Per: Patient, Family History/Exam Limitations: None Additional History Per: Patient, Family Past Medical History Reviewed: Historical Data, Nursing Documentation, Vital Signs Vital Signs: Last Vital Signs Temp 99.8 F H 03/17/19 19:21 Pulse 104 H 03/17/19 19:21 Resp 19 03/17/19 19:21 BP 122/73 03/17/19 19:21 Pulse Ox 95 03/17/19 19:21 Primary Care Provider: Ronan Osman - Medical History PMH: Alzheimer's Disease, Asthma, Dementia, Diabetes, HTN Surgical History: Family History: States: No Known Family Hx - Social History Hx Alcohol Use: No Hx Substance Use: No - Immunization History Hx Tetanus Toxoid Vaccination: No Hx Influenza Vaccination: No Hx Pneumococcal Vaccination: No Review Of Systems Constitutional: Positive for: Weakness Eyes: Negative for: Vision Change Gastrointestinal: Positive for: Other (difficulty eating) Neurological: Negative for: Weakness, Numbness Physical Exam - Physical Exam Appears: Non-toxic, No Acute Distress, Other (nonverbal) Skin: Warm, Dry, Other (poor skin turgor) Head: Atraumatic, Normacephalic Eye(s): bilateral: Normal Inspection Neck: Normal ROM, Supple Chest: Symmetrical, No Deformity Cardiovascular: Rhythm Regular, No Murmur Respiratory: No Rales, No Rhonchi, No Wheezing Gastrointestinal/Abdominal: Soft, No Tenderness Back: Other (presence of sacraol decubitus ulcers.) Neurological/Psych: Oriented x3, Normal Speech, Normal Cognition, Normal Cranial Nerves, Normal Motor, Normal Sensation, Normal Reflexes, Other (No focal deficits) ED Course And Treatment - Laboratory Results Result Diagrams: 03/17/19 20:24 03/17/19 20:24 ECG: Interpreted By Me, Viewed By Me ECG Rhythm: Sinus Rhythm, R BBB ECG Interpretation: Abnormal Interpretation Of ECG: NSR, IRBBB. abnormal tracings. Rate From EC O2 Sat by Pulse Oximetry: 95 (on RA) Pulse Ox Interpretation: Normal - Radiology CXR: Interpreted by Me, Viewed By Me CXR Interpretation: Yes: Infiltrates - CT Scan/US CT head Other Rad Studies (CT/US): Read By Radiologist, Radiology Report Reviewed CT/US Interpretation: EXAM: CT Head Without IV contrast. CLINICAL HISTORY: Ams repeat scan due to excessive motion. TECHNIQUE: Axial computed tomography images of the head/brain without intravenous contrast. COMPARISON: None provided. 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 No acute intracranial pathology. VENTRICLES: There is generalized parenchymal atrophy noted as demonstrated by symmetrical dilatation of ventricles and sulci. ORBITS: The orbits are unremarkable. SINUSES AND MASTOIDS: The paranasal sinuses and mastoid air cells are clear. BONES: No fracture. SOFT TISSUES: Unremarkable. IMPRESSION: 1. There is g eneralized parenchymal atrophy. 2. 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 3. No acute intracranial pathology. . Electronically signed on March 17, 2019 8:36:18 PM EDT by: Júnior Durham M.D., M.B.A., Certified By ABR. Fellowship Trained MRI and CT Specialist CT chest Other Rad Studies (CT/US): Read By Radiologist, Radiology Report Reviewed CT/US Interpretation: EXAM: CT Chest without Intravenous Contrast. CLINICAL HISTORY: Possible infiltrate in left lung. TECHNIQUE: Axial computed tomography images of the chest without intravenous contrast. 0.00 mGy-cm. CONTRAST: Without. COMPARISON: None provided. FINDINGS: LUNGS: Remainder of the lungs is clear. PLEURAL SPACES: There is prominent airspace opacity left lower lobe, with air bronchograms, most compatible with pneumonic infiltra te. There is an associated small left pleural effusion. There is a trace right pleural effusion. HEART: The heart is mildly enlarged. There is coronary artery calcification. No significant pericardial effusion. LYMPH NODES: No definite mediastinal adenopathy. BONES: Mild multilevel degenerative spine changes. UPPER ABDOMEN: Scans through the upper abdomen demonstrate polycystic kidney disease. There are a few small cysts in the liver as well, seen within both lobes. MISCELLANEOUS: Hilar regions are limited without IV contrast. Thoracic aorta is tortuous and atherosclerotic and mildly ectatic without mahad aneurysm. IMPRESSION: 1. There is prominent airspace opacity left lower lobe, with air bronchograms, most compatible with pneumonic infiltrate. There is an associated small left pleural effusion. There is a trace right pleural effusion. 2. Thoracic aorta is tortuous and atherosclerotic and mildly ectatic without mahad aneurysm. 3. The heart is mildly enlarged. 4. There is coronary artery calcification. 5. Scans through the upper abdomen demonstrate polycystic kidney disease. 6. There are a few small cysts in the liver as well, seen within both lobes. 7. Additional, incidental findings as described above. . Electronically signed on March 17, 2019 11:01:43 PM EDT by: Jeff Adams M.D., Certified by ABR, Diagnostic Radiology Medical Decision Making Medical Decision Making: Plan: CAT Head EKG Labs CXR IV Fluids UA Disposition Discussed With Dr.: Russell Nance Jr. Doctor Will See Patient In The: Hospital Counseled Patient/Family Regarding: Diagnosis - Disposition Disposition: HOSPITALIZED Disposition Time: 23:05 Condition: STABLE Forms: [facility] (Kazakh) - POA Present On Arrival: None - Clinical Impression Clinical Impression: Pneumonia, Altered mental status - Scribe Statement The provider has reviewed the documentation as recorded by the Scribjoe Yin All medical record entries made by the Jiaibjoe were at my direction and personally dictated by me. I have reviewed the chart and agree that the record accurately reflects my personal performance of the history, physical exam, medical decision making, and the department course for this patient. I have also personally directed, reviewed, and agree with the discharge instructions and disposition.
[2019-03-17 20:38] LABS: INR 1.1; PARTIAL THROMBOPLASTIN TIME 31.7 SECONDS (21-34); PROTHROMBIN TIME 12.3 SECONDS (9.7-12.2)
[2019-03-17 20:43] LABS: BASO % 0.3 % (0.0-2.0); EOS # 0.1 K/uL (0.0-0.7); EOS % 0.6 % (0.0-4.0); LYMPH # 3.2 K/uL (1.0-4.3); LYMPH % 23.4 % (20.0-40.0); MEAN CELL VOLUME 93.6 fL (81.0-99.0); MEAN CORPUSCULAR HEMOGLOBIN 29.8 pg (27.0-31.0); MEAN CORPUSCULAR HGB CONC 31.8 g/dL (33.0-37.0); MEAN PLATELET VOLUME 7.5 fL (7.2-11.7); MONO # 1.5 K/uL (0.0-0.8); MONO % 10.6 % (0.0-10.0); NEUT % 65.1 % (50.0-75.0); NRBC % 0.1 % (0.0-2.0); RBC 3.47 Mil/uL (3.80-5.20); RED CELL DISTRIBUTION WIDTH 14.2 % (11.5-14.5)
[2019-03-17 20:49] LABS: HEMOGLOBIN 10.3 g/dL (11.0-16.0); WHITE BLOOD COUNT 13.9 K/uL (4.8-10.8)
[2019-03-17 20:51] LABS: ALB/GLOB RATIO 0.7 (1.0-2.1); ALBUMIN 2.9 g/dL (3.5-5.0); ALT/SGPT 26 U/L (9-52); AST/SGOT 77 U/L (14-36); BLOOD UREA NITROGEN 20 mg/dL (7-17); GFR NON-AFRICAN AMERICAN > 60
[2019-03-17] MEDS ORDERED: Azithromycin 500mg/250ML NS 500 MG/250 ML BAG IV STA (21:12)
[2019-03-17] MEDS ORDERED: Azithromycin 500mg/250ML NS 500 MG/250 ML BAG IVPB ONE (22:06)
[2019-03-17] MEDS ORDERED: Sodium Chloride 0.9% 2,000 ML ONE (22:07)
[2019-03-17 22:46] LABS: SQUAMOUS EPITHIAL < 1 /hpf (0-5); URINE BACTERIA MANY (<OCC); URINE BILIRUBIN NEGATIVE (NEGATIVE); URINE BLOOD NEGATIVE (NEGATIVE); URINE CLARITY Hazy (Clear); URINE COLOR Amber (YELLOW); URINE GLUCOSE (UA) NORMAL (Normal); URINE LEUKOCYTE ESTERASE TRACE Leu/uL (Negative); URINE PROTEIN NEGATIVE (NEGATIVE)
--- NOTE | 2019-03-17 23:31 | CP.PCM.HP ---
History of Present Illness - History of Present Illness History of Present Illness: 89F, with a PMHx of HTN and diabetes, and seizures who presents to the ED with her family c/o feeling weak and difficulty eating at home as per family. Family denies any head injury or syncopal episode. Per family pt has been coughing and felt warm recently, denies any productive sputum, denies any nausea or vomiting, Pt has trouble swallowing per family. States she has been bed ridden for 2 weeks and unable to ambulate. PMHx: HTN, DM, alzheimer disease, seizures SurgHx: cesarian sections x1; cataract surgery 5 years ago FamHx: denies SocHx: denies tobacco, alcohol, and drug use; lives with daughter (Terrie) Allergies: PCN (unknown reaction) Medication: Metformin 850mg PO BID, Benadryl 25mg PO HS, Memantine 5mg PO BID, Losartan 50mg PO Daily, Aspirin 81mg PO daily. full code per daughter Present on Admission - Present on Admission Any Indicators Present on Admission: No Past Patient History - Past Medical History & Family History Past Medical History?: Yes - Past Social History Smoking Status: Never Smoked - CARDIAC Hx Hypertension: Yes - PULMONARY Hx Asthma: Yes - NEUROLOGICAL Hx Alzheimer's Disease: Yes Hx Dementia: Yes - ENDOCRINE/METABOLIC Hx Diabetes Mellitus Type 2: Yes - MUSCULOSKELETAL/RHEUMATOLOGICAL Hx Falls: No - GENITOURINARY/GYNECOLOGICAL Hx Incontinence: Yes - PSYCHIATRIC Hx Substance Use: No - SURGICAL HISTORY Hx Section: Yes (x2) Other/Comment: eye surgery - ANESTHESIA Hx Anesthesia: Yes Hx Anesthesia Reactions: No Meds Allergies/Adverse Reactions: Allergies Allergy/AdvReac Type Severity Reaction Status Date / Time Penicillins Allergy Verified 03/17/19 19:19 Physical Exam - Additional Findings Additional findings: - Constitutional Appears: chronically ill, unresponsive - Head Exam Head Exam: ATRAUMATIC, NORMAL INSPECTION, NORMOCEPHALIC - Eye Exam Eye Exam: EOMI, Normal appearance, PERRL Pupil Exam: NORMAL ACCOMODATION, PERRL - ENT Exam ENT Exam: Mucous Membranes Moist, Normal Exam - Neck Exam Neck Exam: Full ROM, Normal Inspection. absent: Lymphadenopathy - Respiratory Exam Respiratory Exam: decreased breath sounds- Bilateral, NORMAL BREATHING PATTERN - Cardiovascular Exam Cardiovascular Exam: REGULAR RHYTHM, +S1, +S2. absent: Murmur - GI/Abdominal Exam GI & Abdominal Exam: Soft, Normal Bowel Sounds. absent: Distended, Tenderness - Extremities Exam Extremities Exam: Full ROM, Normal Capillary Refill, Normal Inspection. absent: Joint Swelling, Pedal Edema - Back Exam Back Exam: NORMAL INSPECTION - Neurological Exam Neurological Exam: unresponsive, labored breathing - Psychiatric Exam Psychiatric exam: Normal Affect, Normal Mood - Skin Skin Exam: Dry, Intact, Normal Color, Warm Results - Vital Signs Recent Vital Signs: Last Vital Signs Temp 97.9 F 03/17/19 22:24 Pulse 105 H 03/17/19 22:24 Resp 16 03/17/19 22:24 BP 139/85 03/17/19 22:24 Pulse Ox 95 03/17/19 23:11 - Labs Result Diagrams: 03/17/19 20:24 03/17/19 20:24 Labs: Laboratory Results - last 24 hr 03/17/19 03/17/19 03/17/19 19:21 19:38 19:54 WBC RBC Hgb Hct MCV MCH MCHC RDW Plt Count MPV Neut % (Auto) Lymph % (Auto) Calloway % (Auto) Eos % (Auto) Baso % (Auto) Neut # (Auto) Lymph # (Auto) [place]ay # (Auto) Eos # (Auto) Baso # (Auto) PT INR APTT Puncture Site Lr pCO2 35 pO2 76 L HCO3 26.9 ABG pH 7.48 H ABG Total CO2 27.2 ABG O2 Saturation 97.7 ABG Base Excess 2.6 ABG Hemoglobin 9.9 L ABG Carboxyhemoglobin 2.6 H POC ABG HHb (Measured) 2.2 ABG Methemoglobin 1.8 Davin Test Pos A-a O2 Difference 30.0 Respiratory Index 0.4 Hgb O2 Saturation 93.4 L FiO2 21.0 Sodium Potassium Chloride Carbon Dioxide Anion Gap BUN Creatinine Est GFR ( Amer) Est GFR (Non-Af Amer) POC Glucose (mg/dL) 164 H Random Glucose Calcium Total Bilirubin AST ALT Alkaline Phosphatase Total Protein Albumin Globulin Albumin/Globulin Ratio Urine Color [place]ha Urine Clarity Hazy Urine pH 5.0 Ur Specific [place] 1.020 Urine Protein Negative Urine Glucose (UA) Normal Urine Ketones Negative Urine Blood Negative Urine Nitrate Positive H Urine Bilirubin Negative Urine Urobilinogen 4.0 H Ur Leukocyte Esterase Trace Urine WBC (Auto) 16 H Urine RBC (Auto) 2 Ur Squamous Epith Cells < 1 Urine Bacteria Many H 03/17/19 03/17/19 03/17/19 20:24 20:24 20:24 WBC 13.9 H D RBC 3.47 L Hgb 10.3 L D Hct 32.5 L MCV 93.6 MCH 29.8 MCHC 31.8 L RDW 14.2 Plt Count 490 H D MPV 7.5 Neut % (Auto) 65.1 Lymph % (Auto) 23.4 Calloway % (Auto) 10.6 H Eos % (Auto) 0.6 Baso % (Auto) 0.3 Neut # (Auto) 9.0 H Lymph # (Auto) 3.2 C[place]ay # (Auto) 1.5 H Eos # (Auto) 0.1 Baso # (Auto) 0.0 PT 12.3 H INR 1.1 APTT 31.7 Puncture Site pCO2 pO2 HCO3 ABG pH ABG Total CO2 ABG O2 Saturation ABG Base Excess ABG Hemoglobin ABG Carboxyhemoglobin POC ABG HHb (Measured) ABG Methemoglobin Davin Test A-a O2 Difference Respiratory Index Hgb O2 Saturation FiO2 Sodium 139 Potassium 4.9 Chloride 105 Carbon Dioxide 28 Anion Gap 11 BUN 20 H Creatinine 0.7 Est GFR ( Amer) > 60 Est GFR (Non-Af Amer) > 60 POC Glucose (mg/dL) Random Glucose 146 H D Calcium 11.0 H Total Bilirubin 0.3 AST 77 H D ALT 26 Alkaline Phosphatase 116 Total Protein 7.1 Albumin 2.9 L D Globulin 4.2 H Albumin/Globulin Ratio 0.7 L Urine Color Urine Clarity Urine pH Ur Specific [place] Urine Protein Urine Glucose (UA) Urine Ketones Urine Blood Urine Nitrate Urine Bilirubin Urine Urobilinogen Ur Leukocyte Esterase Urine WBC (Auto) Urine RBC (Auto) Ur Squamous Epith Cells Urine Bacteria Assessment & Plan - Assessment and Plan (Free Text) Assessment: 89F admitted for Community Acquired Pneumonia CAP Rocephin and Zithromax IVPB WBCs elevated f/u blood cultures Chest CT : left lower lobe infiltrates Aspiration precautions, f/u [facility] [employer] eval Alzeimer's Memantine 5mg PO BID CT Head: 1. There is generalized parenchymal atrophy. 2. 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 HTN Losartan 50mg PO daily Continue to monitor vitals DM Metformin 850mg PO BID Accuchecks ACHS ISS Hypoglycemic protocol Hx of Seizures Keppra 500mg PO BID Seizure precautions PPX SCDs Pureed Heart Healthy diet, Low Carb Seizure precautions Fall precautions PT/OT dispo: pt unresponsive for last 3 days, consider palliative care consult to assess goals CK PGY1 dw Dr Nance
[2019-03-17] MEDS: Azithromycin 500 MG in Sodium Chloride 0.9% 250 ML IVPB SCH (23:35)
[2019-03-17] MEDS ORDERED: Glucagon Recombinant 1 mg Inj IM PRN (23:48)
[2019-03-17] MEDS ORDERED: Dextrose 50% SYRINGE Inj (50 ml) IV PRN (23:48)
[2019-03-18] MEDS: (Novolin R) Insulin Human Regular 100 units/ml vial SC SCH ×4 (07:37→22:59)
--- NOTE | 2019-03-18 08:07 | CT ---
Date of service: 03/17/2019 PROCEDURE: CT HEAD WITHOUT CONTRAST. HISTORY: Altered mental status COMPARISON: 04/09/2018 TECHNIQUE: Axial computed tomography images were obtained through the head/brain without intravenous contrast. Radiation dose: Total exam DLP = 1659.31 mGy-cm. This CT exam was performed using one or more of the following dose reduction techniques: Automated exposure control, adjustment of the mA and/or kV according to patient size, and/or use of iterative reconstruction technique. FINDINGS: HEMORRHAGE: No intracranial hemorrhage. BRAIN: No mass effect or edema. Scattered focal lucencies in the subcortical and periventricular white matter suggestive for chronic microvascular ischemic change. Diffuse generalized parenchymal atrophy. Left basal ganglia lacunar infarct. VENTRICLES: Unremarkable. No hydrocephalus. CALVARIUM: Unremarkable. PARANASAL SINUSES: Unremarkable as visualized. No significant inflammatory changes. MASTOID AIR CELLS: Unremarkable as visualized. No inflammatory changes. OTHER FINDINGS: Extensive motion artifact. IMPRESSION: No acute intracranial abnormality. Severe chronic microvascular ischemic change. Diffuse generalized parenchymal atrophy. If symptoms persists, consider correlation with MRI. A preliminary report was generated at 8:36 p.m. on 03/17/[address] Júnior Durham from [facility].
[2019-03-18 08:13] LABS: ALB/GLOB RATIO 0.7 (1.0-2.1); ALBUMIN 2.6 g/dL (3.5-5.0); ALT/SGPT 20 U/L (9-52); AST/SGOT 51 U/L (14-36); BLOOD UREA NITROGEN 16 mg/dL (7-17); CALCIUM 9.9 mg/dl (8.6-10.4); GFR NON-AFRICAN AMERICAN > 60
[2019-03-18 08:14] LABS: BASO % 0.3 % (0.0-2.0); EOS % 0.3 % (0.0-4.0); HEMOGLOBIN 9.4 g/dL (11.0-16.0); LYMPH # 2.6 K/uL (1.0-4.3); LYMPH % 21.6 % (20.0-40.0); MEAN CELL VOLUME 92.4 fL (81.0-99.0); MEAN CORPUSCULAR HEMOGLOBIN 30.3 pg (27.0-31.0); MEAN CORPUSCULAR HGB CONC 32.8 g/dL (33.0-37.0); MEAN PLATELET VOLUME 7.5 fL (7.2-11.7); MONO # 1.5 K/uL (0.0-0.8); MONO % 12.6 % (0.0-10.0); NEUT # 7.7 K/uL (1.8-7.0); NEUT % 65.2 % (50.0-75.0); NRBC % 0.1 % (0.0-2.0); RBC 3.09 Mil/uL (3.80-5.20); RED CELL DISTRIBUTION WIDTH 14.3 % (11.5-14.5); WHITE BLOOD COUNT 11.9 K/uL (4.8-10.8)
[2019-03-18] MEDS: Divalproex 500 mg DR Tab PO SCH ×2 (09:19→17:34)
--- NOTE | 2019-03-18 09:32 | RAD ---
Date of service: 03/17/2019 HISTORY: Altered mental status COMPARISON: 04/09/2018 TECHNIQUE: 1 view obtained. FINDINGS: LUNGS: Prominent consolidative opacification at the left lung base. Bilateral hilar prominence. Small nodular density in the left suprahilar region likely represents vessel on end. PLEURA: Small to moderate left pleural effusion. CARDIOVASCULAR: Enlarged ectatic aorta. Masslike opacity in the right paratracheal region which may represent prominent vasculature. This is not significantly changed since the prior study. Normal cardiac size. OSSEOUS STRUCTURES: No significant abnormalities. VISUALIZED UPPER ABDOMEN: Normal. OTHER FINDINGS: None. IMPRESSION: Prominent consolidative opacification at the left lung base with left pleural effusion.
--- NOTE | 2019-03-18 10:14 | CP.PCM.PN ---
Subjective - Date & Time of Evaluation Date of Evaluation: 03/18/19 Time of Evaluation: 07:00 - Subjective Subjective: Progress note for Dr. Nance. Patient seen and evaluated at bedside. Patient somnolent, but responds to pain. No acute overnight events. Unable to obtain ROS as patient is non-verbal. Objective - Vital Signs/Intake and Output Vital Signs (last 24 hours): Temp Pulse Resp BP Pulse Ox 98.5 F 100 H 20 119/75 96 03/18/19 07:54 03/18/19 07:54 03/18/19 07:54 03/18/19 07:54 03/18/19 07:54 - Medications Medications: Current Medications Dextrose (Dextrose 50% Inj) 0 ml IV STAT PRN; Protocol PRN Reason: Hypoglycemia Protocol Dextrose (Glutose 15) 0 gm PO ONCE PRN; Protocol PRN Reason: Hypoglycemia Protocol Divalproex Sodium (Depakote Dr) 500 mg PO BID [facility] Last Admin: 03/18/19 09:19 Dose: 500 mg Glucagon (Glucagen Diagnostic Kit) 0 mg IM STAT PRN; Protocol PRN Reason: Hypoglycemia Protocol Azithromycin 500 mg/ Sodium (Chloride) 250 mls @ 250 mls/hr IVPB Q24H [facility]; Protocol Last Admin: 03/17/19 23:35 Dose: Not Given Ceftriaxone Sodium 1 gm/ (Sodium Chloride) 100 mls @ 100 mls/hr IVPB Q12H [facility]; Protocol Last Admin: 03/18/19 00:20 Dose: 100 mls/hr Dextrose (Dextrose 5% In Water 1000 Ml) 1,000 mls @ 0 mls/hr IV .Q0M PRN; Protocol PRN Reason: Hypoglycemia Protocol Insulin Human Regular (Novolin R) 0 unit SC ACHS [facility]; Protocol Last Admin: 03/18/19 07:37 Dose: Not Given Losartan Potassium (Cozaar) 50 mg PO DAILY [facility] Last Admin: 03/18/19 09:19 Dose: 50 mg Memantine (Namenda) 5 mg PO BID [facility] Last Admin: 03/18/19 09:19 Dose: 5 mg Metformin HCl (Glucophage) 850 mg PO BID [facility] Last Admin: 03/18/19 09:19 Dose: 850 mg - Labs Labs: 03/18/19 07:49 03/18/19 07:49 PT 12.3 SECONDS (9.7-12.2) H 03/17/19 20:24 INR 1.1 03/17/19 20:24 APTT 31.7 SECONDS (21-34) 03/17/19 20:24 - Constitutional Appears: Non-toxic, No Acute Distress - Head Exam Head Exam: ATRAUMATIC, NORMOCEPHALIC - Eye Exam Eye Exam: EOMI, PERRL - ENT Exam ENT Exam: Mucous Membranes Dry - Neck Exam Neck Exam: Normal Inspection - Respiratory Exam Respiratory Exam: Decreased Breath Sounds. absent: Rales, Rhonchi, Wheezes, Respiratory Distress, Stridor - Cardiovascular Exam Cardiovascular Exam: REGULAR RHYTHM, +S1, +S2 - GI/Abdominal Exam GI & Abdominal Exam: Soft, Normal Bowel Sounds. absent: Firm, Guarding, Rigid, Tenderness, Rebound - Neurological Exam Additional comments: Somnolent but withdraws to pain, non-verbal, does not follow commands - Skin Skin Exam: Normal Color, Warm Additional comments: Stage 4 R sacral ulcer, unstagable L sided sacral ulcer, Stage 2 L hip ulcer, deep tissue injury to bilateral heels. Assessment and Plan - Assessment and Plan (Free Text) Plan: 89F admitted for Community Acquired Pneumonia Community aquired pneumonia Chest CT: left lower lobe infiltrates CXR: Prominent consolidative opacification at the left lung base with left pleural effusion. Rocephin and Zithromax IVPB WBCs downtrending f/u blood cultures Aspiration precautions Alzeimer's Memantine 5mg PO BID CT Head: 1. There is generalized parenchymal atrophy. 2. 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 HTN Losartan 50mg PO daily Continue to monitor vitals DM Metformin 850mg PO BID Accuchecks ACHS ISS Hypoglycemic protocol Hx of Seizures Keppra 500mg PO BID Seizure precautions Multiple Ulcers Stage 4 sacral ulcer, Stage 2 L hip ulcer, bilateral heels deep tissue injury Wound care nurse consulted Air mattress PPX SCDs Pureed Heart Healthy diet, Low Carb, thin liquids Seizure precautions Fall precautions PT/OT Case discussed with Dr. Nance. Madelin Miller, PGY-1
--- NOTE | 2019-03-18 11:42 | CT ---
Date of service: 2019-03-17 22:01:16 CT chest without IV contrast Indication: possible infiltrate left lung Technique: Contiguous axial images were obtained through the chest without intravenous contrast enhancement. Sagittal and coronal reconstructions were generated and reviewed. This CT exam was performed using 1 or more of the following dose reduction techniques: Automated exposure control, adjustment of the MAA and/or kV according to patient size, and/or use of iterative reconstruction technique. Radiation dose (DLP): 551.77 MGy-cm. Comparison: Chest x-ray performed 03/17/19 Findings: Examination markedly limited by respiratory/motion artifact. Patient unable to follow breathing instructions. Visualized portions of the inferior thyroid gland demonstrates small probable hypodense nodules. The mediastinal and hilar vascular structures appear within normal limits. Cardiomegaly. Coronary artery calcifications. Dense atherosclerotic calcifications of the aorta. Torturous aorta without definite aneurysmal dilatation; please note limitations of the study due to motion. Evaluation for adenopathy is limited by lack of IV contrast and motion, in particular evaluation for hilar adenopathy. Left lower lobe consolidation with air bronchograms consistent with pneumonia. Small left pleural effusion. Trace right pleural effusion. No pneumothorax. No pleural effusion. No pneumothorax. Limited visualization of the noncontrast upper abdomen : Extensive bilateral renal cysts, partially imaged consistent with polycystic kidney disease. Right renal calcifications. Scattered hepatic cysts. Degenerative changes. Impression: Examination markedly limited by respiratory/motion artifact. Patient unable to follow breathing instructions. Small probable hypodense thyroid nodules; outpatient ultrasound may be considered. Left lower lobe consolidation with air bronchograms consistent with pneumonia. Small left pleural effusion. Trace right pleural effusion. Cardiomegaly. Coronary artery calcifications. Dense atherosclerotic calcifications of the aorta. Torturous aorta without definite aneurysmal dilatation; please note limitations of the study due to motion. Evaluation for adenopathy is limited by lack of IV contrast and motion, in particular examination for hilar adenopathy. Limited visualization of the noncontrast upper abdomen : Extensive bilateral renal cysts, partially imaged consistent with polycystic kidney disease. Right renal calcifications. Scattered hepatic cysts. Preliminary impression was provided by [facility]. Study marked for PA review.
[2019-03-18] MEDS ORDERED: Sodium Chloride 0.9% 1,000 ML IV SCH (12:00)
[2019-03-18] MEDS: Sodium Chloride 0.9% 1,000 ML IV SCH (18:31)
[2019-03-19] MEDS: Azithromycin 500 MG in Sodium Chloride 0.9% 250 ML IVPB SCH (00:05)
[2019-03-19] MEDS: Sodium Chloride 0.9% 1,000 ML IV SCH (01:00)
--- NOTE | 2019-03-19 07:04 | CP.PCM.PN ---
Subjective - Date & Time of Evaluation Date of Evaluation: 03/19/19 Time of Evaluation: 07:01 - Subjective Subjective: Progress note for Dr. Nance. Patient seen and evaluated at bedside. Patient more awake and responsive today. No acute overnight events. Unable to obtain ROS due to clinical condition. Objective - Vital Signs/Intake and Output Vital Signs (last 24 hours): Temp Pulse Resp BP Pulse Ox 99.6 F 96 H 20 123/72 98 03/19/19 00:00 03/19/19 00:00 03/19/19 00:00 03/19/19 00:00 03/19/19 00:00 - Medications Medications: Current Medications Acetaminophen (Tylenol 650 Mg Supp) 650 mg PA Q6 PRN PRN Reason: Fever >100.4 F Dextrose (Dextrose 50% Inj) 0 ml IV STAT PRN; Protocol PRN Reason: Hypoglycemia Protocol Dextrose (Glutose 15) 0 gm PO ONCE PRN; Protocol PRN Reason: Hypoglycemia Protocol Divalproex Sodium (Depakote Dr) 500 mg PO BID [facility] Last Admin: 03/18/19 17:34 Dose: 500 mg Enoxaparin Sodium (Lovenox) 40 mg SC DAILY [facility] Glucagon (Glucagen Diagnostic Kit) 0 mg IM STAT PRN; Protocol PRN Reason: Hypoglycemia Protocol Azithromycin 500 mg/ Sodium (Chloride) 250 mls @ 250 mls/hr IVPB Q24H [facility]; Protocol Last Admin: 03/19/19 00:05 Dose: 250 mls/hr Ceftriaxone Sodium 1 gm/ (Sodium Chloride) 100 mls @ 100 mls/hr IVPB Q12H [facility]; Protocol Last Admin: 03/18/19 22:30 Dose: 100 mls/hr Dextrose (Dextrose 5% In Water 1000 Ml) 1,000 mls @ 0 mls/hr IV .Q0M PRN; Protocol PRN Reason: Hypoglycemia Protocol Sodium Chloride (Sodium Chloride 0.9%) 1,000 mls @ 100 mls/hr IV .Q10H [facility] Last Admin: 03/19/19 01:00 Dose: 100 mls/hr Insulin Human Regular (Novolin R) 0 unit SC ACHS [facility]; Protocol Last Admin: 03/18/19 22:59 Dose: Not Given Losartan Potassium (Cozaar) 50 mg PO DAILY [facility] Last Admin: 03/18/19 09:19 Dose: 50 mg Memantine (Namenda) 5 mg PO BID [facility] Last Admin: 03/18/19 17:34 Dose: 5 mg Metformin HCl (Glucophage) 850 mg PO BID [facility] Last Admin: 03/18/19 17:34 Dose: 850 mg - Labs Labs: 03/18/19 07:49 03/18/19 07:49 PT 12.3 SECONDS (9.7-12.2) H 03/17/19 20:24 INR 1.1 03/17/19 20:24 APTT 31.7 SECONDS (21-34) 03/17/19 20:24 - Additional Findings Additional findings: - Constitutional Appears: Non-toxic, No Acute Distress - Head Exam Head Exam: ATRAUMATIC, NORMOCEPHALIC - Eye Exam Eye Exam: EOMI, PERRL - ENT Exam ENT Exam: Mucous Membranes Dry - Neck Exam Neck Exam: Normal Inspection - Respiratory Exam Respiratory Exam: Decreased Breath Sounds, minimal crackes L base. absent: Rhonchi, Wheezes, Respiratory Distress, Stridor - Cardiovascular Exam Cardiovascular Exam: REGULAR RHYTHM, +S1, +S2 - GI/Abdominal Exam GI & Abdominal Exam: Soft, Normal Bowel Sounds. absent: Firm, Guarding, Rigid, Tenderness, Rebound - Neurological Exam Additional comments: Awake, nods to some questions, makes unintelligible sounds, follows some commands, squeezes hands bilaterally upon request, attempts to raise arms but cannot hold them up - Skin Skin Exam: Normal Color, Warm Additional comments: Dressings to stage 4 R sacral ulcer, L sided sacral ulcer, and Stage 2 L hip ulcer, dressings to bilateral heels and multipodus boots noted. Assessment and Plan - Assessment and Plan (Free Text) Plan: 89F admitted for Community Acquired Pneumonia Community aquired pneumonia with metabolic encephalopathy 2/[address]: left lower lobe infiltrates CXR: Prominent consolidative opacification at the left lung base with left pleural effusion. Rocephin and Zithromax IVPB started on 03/17/19 WBCs downtrending blood cultures- neg x24H prelim Aspiration precautions Urinary tract infection UA: + Nitrates, trace LE, 16WBC, many bacteria Rocephin 1gm Q12H urine cx-gram neg rods prelim Alzeimer's Memantine 5mg PO BID CT Head: 1. There is generalized parenchymal atrophy. 2. 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 HTN Losartan 50mg PO daily Continue to monitor vitals DM Metformin 850mg PO BID Accuchecks ACHS ISS Hypoglycemic protocol Hx of Seizures Keppra 500mg PO BID Seizure precautions Multiple Ulcers Stage 4 sacral ulcer, Stage 2 L hip ulcer, bilateral heels deep tissue injury Wound care consulted Air mattress ordered PPX SCDs Pureed Heart Healthy diet, Low Carb, thin liquids Seizure precautions Fall precautions PT/OT Dispo: PT recommends MARIJA, placement pending. Follow up with SW. Case discussed with Dr. Nance. Madelin Miller, PGY-1
[2019-03-19 07:14] LABS: BASO % 0.3 % (0.0-2.0); EOS # 0.1 K/uL (0.0-0.7); EOS % 0.9 % (0.0-4.0); LYMPH # 2.8 K/uL (1.0-4.3); LYMPH % 26.7 % (20.0-40.0); MEAN CELL VOLUME 91.8 fL (81.0-99.0); MEAN CORPUSCULAR HGB CONC 33.7 g/dL (33.0-37.0); MEAN PLATELET VOLUME 7.3 fL (7.2-11.7); MONO % 10.1 % (0.0-10.0); NEUT # 6.4 K/uL (1.8-7.0); NRBC % 0.1 % (0.0-2.0); RBC 2.92 Mil/uL (3.80-5.20); RED CELL DISTRIBUTION WIDTH 14.2 % (11.5-14.5); WHITE BLOOD COUNT 10.3 K/uL (4.8-10.8)
[2019-03-19] MEDS: (Novolin R) Insulin Human Regular 100 units/ml vial SC SCH ×4 (07:22→21:27)
[2019-03-19 07:50] LABS: ALB/GLOB RATIO 0.6 (1.0-2.1); ALBUMIN 2.3 g/dL (3.5-5.0); ALT/SGPT 35 U/L (9-52); AST/SGOT 89 U/L (14-36); BLOOD UREA NITROGEN 18 mg/dL (7-17); CALCIUM 9.7 mg/dl (8.6-10.4); GFR NON-AFRICAN AMERICAN > 60
[2019-03-19] MEDS: Divalproex 500 mg DR Tab PO SCH ×2 (09:25→17:52)
[2019-03-19] MEDS: Enoxaparin 40 mg Syringe SC SCH (09:25)
[2019-03-19] MEDS: Clotrimazole 1% Cream(30 gm) TOP SCH ×2 (11:53→17:49)
--- NOTE | 2019-03-19 17:50 | CP.PCM.PCO ---
Addendum Addendum: 03/19/19 17:50 Lotramin cream d/c'd. No mention of cream or fungal infection in note. Re-add med in AM if there is a need.
[2019-03-20] MEDS ORDERED: Azithromycin 500 MG in Sodium Chloride 0.9% 250 ML IVPB SCH
[2019-03-20] MEDS: Sodium Chloride 0.9% 1,000 ML IV SCH ×3 (00:08→21:41)
[2019-03-20] MEDS: Azithromycin 500 MG in Sodium Chloride 0.9% 250 ML IVPB SCH (00:11)
[2019-03-20 07:24] LABS: BASO % 0.3 % (0.0-2.0); EOS # 0.2 K/uL (0.0-0.7); EOS % 1.6 % (0.0-4.0); HEMOGLOBIN 9.4 g/dL (11.0-16.0); LYMPH # 3.5 K/uL (1.0-4.3); LYMPH % 31.2 % (20.0-40.0); MEAN CELL VOLUME 92.2 fL (81.0-99.0); MEAN CORPUSCULAR HEMOGLOBIN 30.6 pg (27.0-31.0); MEAN CORPUSCULAR HGB CONC 33.2 g/dL (33.0-37.0); MONO # 0.9 K/uL (0.0-0.8); NEUT # 6.7 K/uL (1.8-7.0); NEUT % 58.9 % (50.0-75.0); NRBC % 0.1 % (0.0-2.0); RBC 3.08 Mil/uL (3.80-5.20); RED CELL DISTRIBUTION WIDTH 14.1 % (11.5-14.5); WHITE BLOOD COUNT 11.3 K/uL (4.8-10.8)
[2019-03-20] MEDS: (Novolin R) Insulin Human Regular 100 units/ml vial SC SCH ×4 (07:28→21:37)
--- NOTE | 2019-03-20 07:29 | CP.PCM.PN ---
Subjective - Date & Time of Evaluation Date of Evaluation: 03/20/19 Time of Evaluation: 07:29 - Subjective Subjective: Progress note for Dr. Nance. Patient seen and evaluated at bedside. Patient more awake and responsive today. No acute overnight events. Unable to obtain ROS due to clinical condition. Objective - Vital Signs/Intake and Output Vital Signs (last 24 hours): Temp Pulse Resp BP Pulse Ox 98.7 F 99 H 20 139/81 94 L 03/20/19 00:00 03/20/19 00:00 03/20/19 00:00 03/20/19 00:00 03/20/19 00:00 Intake and Output: 03/20/19 03/20/19 06:59 18:59 Intake Total 950 Output Total 750 Balance 200 - Medications Medications: Current Medications Acetaminophen (Tylenol 650 Mg Supp) 650 mg AR Q6 PRN PRN Reason: Fever >100.4 F Dextrose (Dextrose 50% Inj) 0 ml IV STAT PRN; Protocol PRN Reason: Hypoglycemia Protocol Dextrose (Glutose 15) 0 gm PO ONCE PRN; Protocol PRN Reason: Hypoglycemia Protocol Divalproex Sodium (Depakote Dr) 500 mg PO BID [facility] Last Admin: 03/19/19 17:52 Dose: 500 mg Enoxaparin Sodium (Lovenox) 40 mg SC DAILY [facility] Last Admin: 03/19/19 09:25 Dose: 40 mg Glucagon (Glucagen Diagnostic Kit) 0 mg IM STAT PRN; Protocol PRN Reason: Hypoglycemia Protocol Azithromycin 500 mg/ Sodium (Chloride) 250 mls @ 250 mls/hr IVPB Q24H [facility]; Protocol Last Admin: 03/20/19 00:11 Dose: 250 mls/hr Ceftriaxone Sodium 1 gm/ (Sodium Chloride) 100 mls @ 100 mls/hr IVPB Q12H [facility]; Protocol Last Admin: 03/19/19 22:54 Dose: 100 mls/hr Dextrose (Dextrose 5% In Water 1000 Ml) 1,000 mls @ 0 mls/hr IV .Q0M PRN; Protocol PRN Reason: Hypoglycemia Protocol Sodium Chloride (Sodium Chloride 0.9%) 1,000 mls @ 100 mls/hr IV .Q10H [facility] Last Admin: 03/20/19 00:08 Dose: Not Given Insulin Human Regular (Novolin R) 0 unit SC ACHS [facility]; Protocol Last Admin: 03/20/19 07:28 Dose: Not Given Losartan Potassium (Cozaar) 50 mg PO DAILY [facility] Last Admin: 03/19/19 09:25 Dose: 50 mg Memantine (Namenda) 5 mg PO BID [facility] Last Admin: 03/19/19 17:52 Dose: 5 mg Metformin HCl (Glucophage) 850 mg PO BID [facility] Last Admin: 03/19/19 17:53 Dose: 850 mg - Labs Labs: 03/19/19 06:59 03/19/19 06:59 PT 12.3 SECONDS (9.7-12.2) H 03/17/19 20:24 INR 1.1 03/17/19 20:24 APTT 31.7 SECONDS (21-34) 03/17/19 20:24 - Head Exam Head Exam: ATRAUMATIC, NORMAL INSPECTION - Eye Exam Eye Exam: EOMI, Normal appearance, PERRL. absent: Periorbital tenderness Pupil Exam: NORMAL ACCOMODATION, PERRL. absent: Irregular, Unequal - ENT Exam ENT Exam: Mucous Membranes Moist, Normal Oropharynx - Respiratory Exam Respiratory Exam: Clear to Ausculation Bilateral, NORMAL BREATHING PATTERN. absent: Chest Wall Tenderness, Prolonged Expiratory Phase, Respiratory Distress - Cardiovascular Exam Cardiovascular Exam: REGULAR RHYTHM, +S1, +S2 - GI/Abdominal Exam GI & Abdominal Exam: Soft, Normal Bowel Sounds. absent: Hyperactive Bowel Sounds - Extremities Exam Extremities Exam: Full ROM, Normal Inspection. absent: Pedal Edema - Neurological Exam Neurological Exam: Awake, CN II-XII Intact, Oriented x3 - Psychiatric Exam Psychiatric exam: Normal Affect, Normal Mood. absent: Depressed - Skin Skin Exam: Dry, Intact, Normal Color, Warm Assessment and Plan - Assessment and Plan (Free Text) Plan: Plan: 89F admitted for Community Acquired Pneumonia Community aquired pneumonia with metabolic encephalopathy 2/[address]: left lower lobe infiltrates CXR: Prominent consolidative opacification at the left lung base with left pleural effusion. Rocephin and Zithromax IVPB started on 03/17/19 WBCs downtrending blood cultures- neg x24H prelim Aspiration precautions Urinary tract infection UA: + Nitrates, trace LE, 16WBC, many bacteria Rocephin 1gm Q12H urine cx-gram neg rods prelim Alzeimer's Memantine 5mg PO BID CT Head: 1. There is generalized parenchymal atrophy. 2. 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 HTN Losartan 50mg PO daily Continue to monitor vitals DM Metformin 850mg PO BID Accuchecks ACHS ISS Hypoglycemic protocol Hx of Seizures Keppra 500mg PO BID Seizure precautions Multiple Ulcers Stage 4 sacral ulcer, Stage 2 L hip ulcer, bilateral heels deep tissue injury Wound care consulted Air mattress ordered PPX SCDs Pureed Heart Healthy diet, Low Carb, thin liquids Seizure precautions Fall precautions PT/OT Dispo: PT recommends MARIJA, placement pending. Follow up with SW. Case discussed with Dr. Nance.
[2019-03-20 07:48] LABS: ALB/GLOB RATIO 0.7 (1.0-2.1); ALBUMIN 2.6 g/dL (3.5-5.0); ALT/SGPT 55 U/L (9-52); AST/SGOT 164 U/L (14-36); BLOOD UREA NITROGEN 15 mg/dL (7-17); CALCIUM 9.4 mg/dl (8.6-10.4); GFR NON-AFRICAN AMERICAN > 60
[2019-03-20] MEDS: Divalproex 500 mg DR Tab PO SCH ×2 (09:11→17:29)
[2019-03-20] MEDS: Enoxaparin 40 mg Syringe SC SCH (09:11)
[2019-03-21] MEDS ORDERED: Azithromycin 500 MG in Sodium Chloride 0.9% 250 ML IVPB SCH
[2019-03-21] MEDS: Sodium Chloride 0.9% 1,000 ML IV SCH ×4 (01:44→15:39)
[2019-03-21 02:01] VITALS: RESP 20
[2019-03-21] MEDS: (Novolin R) Insulin Human Regular 100 units/ml vial SC SCH ×4 (07:49→21:44)
[2019-03-21 08:37] LABS: BASO % 0.2 % (0.0-2.0); EOS # 0.1 K/uL (0.0-0.7); EOS % 1.3 % (0.0-4.0); HEMOGLOBIN 9.3 g/dL (11.0-16.0); LYMPH # 2.6 K/uL (1.0-4.3); LYMPH % 25.6 % (20.0-40.0); MEAN CELL VOLUME 91.6 fL (81.0-99.0); MEAN CORPUSCULAR HEMOGLOBIN 29.9 pg (27.0-31.0); MEAN CORPUSCULAR HGB CONC 32.7 g/dL (33.0-37.0); MEAN PLATELET VOLUME 7.6 fL (7.2-11.7); MONO % 10.3 % (0.0-10.0); NEUT # 6.3 K/uL (1.8-7.0); NEUT % 62.6 % (50.0-75.0); NRBC % 0.1 % (0.0-2.0); RBC 3.1 Mil/uL (3.80-5.20); RED CELL DISTRIBUTION WIDTH 14.7 % (11.5-14.5); WHITE BLOOD COUNT 10.1 K/uL (4.8-10.8)
[2019-03-21 08:58] LABS: ALB/GLOB RATIO 0.7 (1.0-2.1); ALBUMIN 2.4 g/dL (3.5-5.0); ALT/SGPT 41 U/L (9-52); AST/SGOT 79 U/L (14-36); BLOOD UREA NITROGEN 9 mg/dL (7-17); CALCIUM 9.5 mg/dl (8.6-10.4); GFR NON-AFRICAN AMERICAN > 60
[2019-03-21] MEDS: Divalproex 500 mg DR Tab PO SCH ×2 (09:05→17:46)
[2019-03-21] MEDS: Enoxaparin 40 mg Syringe SC SCH (09:06)
--- NOTE | 2019-03-21 09:47 | CARD ---
APPROVED REPORT Date of service: 03/17/2019 EKG Measurement Heart [id number] <Conclusion> Normal sinus rhythm Incomplete right bundle branch block Left anterior fascicular block Abnormal ECG
--- NOTE | 2019-03-21 12:25 | CP.PCM.PN ---
Subjective - Date & Time of Evaluation Date of Evaluation: 03/21/19 Time of Evaluation: 12:24 - Subjective Subjective: Progress Note for Dr. Goyo Palafox. Patient seen and examined at bedside. Per nursing no acute events occurred overnight. Patient denies any fevers, chills, headaches, or any other complaints. Objective - Vital Signs/Intake and Output Vital Signs (last 24 hours): Temp Pulse Resp BP Pulse Ox 98.7 F 97 H 20 151/90 H 97 03/21/19 07:59 03/21/19 07:59 03/21/19 07:59 03/21/19 07:59 03/21/19 07:59 Intake and Output: 03/21/19 03/21/19 06:59 18:59 Intake Total 920 Output Total 200 Balance 720 - Medications Medications: Current Medications Acetaminophen (Tylenol 650 Mg Supp) 650 mg [place] Q6 PRN PRN Reason: Fever >100.4 F Dextrose (Dextrose 50% Inj) 0 ml IV STAT PRN; Protocol PRN Reason: Hypoglycemia Protocol Dextrose (Glutose 15) 0 gm PO ONCE PRN; Protocol PRN Reason: Hypoglycemia Protocol Divalproex Sodium (Depakote Dr) 500 mg PO BID [facility] Last Admin: 03/21/19 09:05 Dose: 500 mg Enoxaparin Sodium (Lovenox) 40 mg SC DAILY [facility] Last Admin: 03/21/19 09:06 Dose: 40 mg Glucagon (Glucagen Diagnostic Kit) 0 mg IM STAT PRN; Protocol PRN Reason: Hypoglycemia Protocol Dextrose (Dextrose 5% In Water 1000 Ml) 1,000 mls @ 0 mls/hr IV .Q0M PRN; Protocol PRN Reason: Hypoglycemia Protocol Sodium Chloride (Sodium Chloride 0.9%) 1,000 mls @ 100 mls/hr IV .Q10H [facility] Last Admin: 03/21/19 01:44 Dose: 100 mls/hr Azithromycin 500 mg/ Sodium (Chloride) 250 mls @ 250 mls/hr IVPB Q24H [facility]; Protocol Last Admin: 03/21/19 00:00 Dose: 250 mls/hr Meropenem 1 gm/ Sodium (Chloride) 100 mls @ 100 mls/hr IVPB Q8H [facility]; Protocol Insulin Human Regular (Novolin R) 0 unit SC ACHS [facility]; Protocol Last Admin: 03/21/19 11:36 Dose: Not Given Losartan Potassium (Cozaar) 50 mg PO DAILY [facility] Last Admin: 03/21/19 09:05 Dose: 50 mg Memantine (Namenda) 5 mg PO BID [facility] Last Admin: 03/21/19 09:05 Dose: 5 mg Metformin HCl (Glucophage) 850 mg PO BID [facility] Last Admin: 03/21/19 09:05 Dose: 850 mg - Labs Labs: 03/21/19 08:21 03/21/19 08:21 PT 12.3 SECONDS (9.7-12.2) H 03/17/19 20:24 INR 1.1 03/17/19 20:24 APTT 31.7 SECONDS (21-34) 03/17/19 20:24 - Head Exam Head Exam: ATRAUMATIC, NORMAL INSPECTION - Eye Exam Eye Exam: EOMI, Normal appearance Pupil Exam: NORMAL ACCOMODATION - ENT Exam ENT Exam: Mucous Membranes Moist, Normal Exam - Neck Exam Neck Exam: Normal Inspection - Respiratory Exam Respiratory Exam: Clear to Ausculation Bilateral, NORMAL BREATHING PATTERN. absent: Decreased Breath Sounds, Respiratory Distress - Cardiovascular Exam Cardiovascular Exam: REGULAR RHYTHM, +S1, +S2 - GI/Abdominal Exam GI & Abdominal Exam: Soft, Normal Bowel Sounds. absent: Tenderness, Mass - Extremities Exam Extremities Exam: Normal Capillary Refill, Normal Inspection. absent: Joint Swelling - Back Exam Back Exam: NORMAL INSPECTION - Neurological Exam Neurological Exam: Alert, Awake, CN II-XII Intact, Normal Gait, Oriented x3. absent: Altered - Psychiatric Exam Psychiatric exam: Normal Affect, Normal Mood - Skin Skin Exam: Dry, Intact, Normal Color Assessment and Plan - Assessment and Plan (Free Text) Plan: Plan: 89F admitted for Community Acquired Pneumonia Community aquired pneumonia with metabolic encephalopathy 2/[address]: left lower lobe infiltrates CXR: Prominent consolidative opacification at the left lung base with left pleural effusion. Rocephin and Zithromax IVPB started on 03/17/19 WBCs downtrending blood cultures- Coagulase negative staphylococcus Aspiration precautions Urinary tract infection UA: + Nitrates, trace LE, 16WBC, many bacteria Urine cx: Positive for ESBL Infectious Disease Dr. Uriarte consulted--> Help appreciated. Rocephin 1gm Q12H Stopped (03/21/19) Medications: Merrem 1gm ivp q8 [facility] Alzeimer's Memantine 5mg PO BID CT Head: 1. There is generalized parenchymal atrophy. 2. Severe chronic p eriventricular and subcortical microvascular disease is seen. HTN Losartan 50mg PO daily Continue to monitor vitals DM Metformin 850mg PO BID Accuchecks ACHS ISS Hypoglycemic protocol Hx of Seizures Keppra 500mg PO BID Seizure precautions Multiple Ulcers Stage 4 sacral ulcer, Stage 2 L hip ulcer, bilateral heels deep tissue injury Wound care consulted Air mattress ordered PPX SCDs Pureed Heart Healthy diet, Low Carb, thin liquids Seizure precautions Fall precautions PT/OT Dispo: PT recommends [facility], placement pending. Follow up with SW. Case discussed with Dr. Nance. Kash Brian, PGY2
[2019-03-21] MEDS: Meropenem 1 GM in Sodium Chloride 0.9% 100 ML IVPB SCH ×2 (14:03→22:04)
--- NOTE | 2019-03-21 23:11 | CP.PCM.CON ---
History of Present Illness - History of Present Illness History of Present Illness: 89F, with a PMHx of HTN and diabetes, and seizures Admitted for weakness and sepsis secondary to pneumonia and UTI Has ESBL+ E Coli in urine and Gram positive cocci in blood CT chest shows infiltrates Patient is confused and weaker on left than right PMHx: HTN, DM, alzheimer disease, seizures SurgHx: cesarian sections x1; cataract surgery 5 years ago FamHx: denies SocHx: denies tobacco, alcohol, and drug use; lives with daughter (Terrie) Allergies: PCN (unknown reaction) Medication: Metformin 850mg PO BID, Benadryl 25mg PO HS, Memantine 5mg PO BID, Losartan 50mg PO Daily, Aspirin 81mg PO daily. Review of Systems - Review of Systems All systems: reviewed and no additional remarkable complaints except - Constitutional Constitutional: As Per HPI - EENT Ears: absent: As Per HPI, Decreased Hearing, Ear Discharge, Ear Pain, Tinnitus, Abnormal Hearing, Disequilibrium, Dizziness, Other Nose/Mouth/Throat: absent: As Per HPI, Epistaxis, Nasal Congestion, Nasal Discharge, Nasal Obstruction, Nasal Trauma, Nose Pain, Post Nasal Drip, Sinus Pain, Sinus Pressure, Bleeding Gums, Change in Voice, Dental Pain, Dry Mouth, Dysphagia, Halitosis, Hoarsness, Lip Swelling, Mouth Lesions, Mouth Pain, Odynophagia, Sore Throat, Throat Swelling, Tongue Swelling, Facial Pain, Neck Pain, Neck Mass, Other - Cardiovascular Cardiovascular: absent: As Per HPI, Acrocyanosis, Chest Pain, Chest Pain at Rest, Chest Pain with Activity, Claudication, Diaphoresis, Dyspnea, Dyspnea on Exertion, Edema, Irregular Heart Rhythm, Pain Radiating to Arm/Neck/Jaw, Leg Edema, Leg Ulcers, Lightheadedness, Orthopnea, Palpitations, Paroxysmal Nocturnal Dyspnea, Pedal Edema, Radiating Pain, Rapid Heart Rate, Slow Heart Rate, Syncope, Other - Respiratory Respiratory: As Per HPI - Gastrointestinal Gastrointestinal: absent: As Per HPI, Abdominal Pain, Belching, Bloating, Change in Bowel Habits, Change in Stool Character, Coffee Ground Emesis, Constipation, Cramping, Diarrhea, Dyspepsia, Dysphagia, Early Satiety, Excessive Flatus, Fecal Incontinence, Heartburn, Hematemesis, Hematochezia, Loose Stools, Melena, Nausea, Odynophagia, Temesmus, Vomiting, Other - Genitourinary Genitourinary: As Per HPI - Reproductive: Female Reproductive:Female: absent: As Per HPI, Amenorrhea, Amenorrhea/ Control, Currently Menstual, Cycle <21 Days, Cycle >35 Days, Cycle Variable, Menses 1-7 Days, Menses >/= 8 Days, Menses Variable, Cycle > 4 Weeks Between, No Menses for 6 Months, Heavy Menses, Light Menses, Normal Menses, Spotting Between Cycles, S/P Hysterectomy, Menopausal, Post Menopausal, Premenarche, Abnormal Vaginal Bleeding, Dysmenorrhea, Dyspareunia, Genital Lesions, Genital Pruritis, Pelvic Pain, Prolapse Symptoms, Sexual Dysfunction, Vaginal Discharge, Vaginal Dryness, Vaginal Odor, Vaginal Pruritis, Other - Menstruation Menstruation: absent: As Per HPI, Amenorrhea, Amenorrhea/ Control, Currently Menstual, Cycle <21 Days, Cycle >35 Days, Cycle Variable, Menses 1-7 Days, Menses >/= 8 Days, Menses Variable, Cycle > 4 Weeks Between, No Menses for 6 Months, Heavy Menses, Light Menses, Normal Menses, Spotting Between Cycles, S/P Hysterectomy, Menopausal, Post Menopausal, Premenarche, Abnormal Vaginal Bleeding, Dysmenorrhea, Other - Integumentary Integumentary: absent: As Per HPI, Acne, Alopecia, Bleeding Lesions, Change in Hair, Change in Nails, Change in Pigmentation, Changing Lesions, Dry Skin, Erythema, Furuncle, Hirsutism, Lesions, New Lesions, Non-Healing Lesions, Photosensitivity, Pruritus, Rash, Skin Pain, Skin Ulcer, Sores, Striae, Swelling, Unusual Bruising, Wounds, Jaundice, Other - Neurological Neurological: absent: As Per HPI, Abnormal Gait, Abnormal Hearing, Abnormal Movements, Abnormal Speech, Behavioral Changes, Burning Sensations, Confusion, Convulsions, Disequilibrium, Dizziness, Numbness, Focal Weakness, Frequent Fa lls, Headaches, Lack of Coordination, Loss of Vision, Memory Loss, Paresthesias, Radicular Pain, Restless Legs, Sensory Deficit, Syncope, Tingling, Tremor, Vertigo, Weakness, Other Visual Disturbances, Other - Psychiatric Psychiatric: absent: As Per HPI, Abnormal Sleep Pattern, Anhedonia, Anxiety, Auditory Hallucinations, Behavioral Changes, Change in Appetite, Change in Libido, Confusion, Depression, Difficulty Concentrating, Hallucinations, Homicidal Ideation, Hopelessness, Irritability, Memory Loss, Mood Swings, Panic Attacks, Paranoia, Suicidal Ideation, Visual Hallucinations, Tactile Hallucinations, Other - Endocrine Endocrine: absent: As Per HPI, Change in Body Appearance, Change in Libido, Cold Intolorance, Deepening of Voice, Excessive Sweating, Fatigue, Flushing, Heat Intolorance, Increase in Ring/Shoe/Hat Size, Palpitations, Polydipsia, Polyphagia, Polyuria, Other - Hematologic/Lymphatic Hematologic: absent: As Per HPI, Easy Bleeding, Easy Bruising, Lymphadenopathy, Other Past Patient History - Past Medical History & Family History Past Medical History?: Yes - Past Social History Smoking Status: Never Smoked - CARDIAC Hx Hypertension: Yes - PULMONARY Hx Asthma: Yes - NEUROLOGICAL Hx Alzheimer's Disease: Yes Hx Dementia: Yes - ENDOCRINE/METABOLIC Hx Diabetes Mellitus Type 2: Yes - MUSCULOSKELETAL/RHEUMATOLOGICAL Hx Falls: Yes - GENITOURINARY/GYNECOLOGICAL Hx Incontinence: Yes - PSYCHIATRIC Hx Substance Use: No - SURGICAL HISTORY Hx Section: Yes (x2) Other/Comment: eye surgery - ANESTHESIA Hx Anesthesia: Yes Hx Anesthesia Reactions: No Meds Allergies/Adverse Reactions: Allergies Allergy/AdvReac Type Severity Reaction Status Date / Time Penicillins Allergy Verified 03/17/19 19:19 - Medications Medications: Current Medications Acetaminophen (Tylenol 650 Mg Supp) 650 mg [place] Q6 PRN PRN Reason: Fever >100.4 F Dextrose (Dextrose 50% Inj) 0 ml IV STAT PRN; Protocol PRN Reason: Hypoglycemia Protocol Dextrose (Glutose 15) 0 gm PO ONCE PRN; Protocol PRN Reason: Hypoglycemia Protocol Divalproex Sodium (Depakote Dr) 500 mg PO BID [facility] Last Admin: 03/21/19 09:05 Dose: 500 mg Enoxaparin Sodium (Lovenox) 40 mg SC DAILY [facility] Last Admin: 03/21/19 09:06 Dose: 40 mg Glucagon (Glucagen Diagnostic Kit) 0 mg IM STAT PRN; Protocol PRN Reason: Hypoglycemia Protocol Dextrose (Dextrose 5% In Water 1000 Ml) 1,000 mls @ 0 mls/hr IV .Q0M PRN; Protocol PRN Reason: Hypoglycemia Protocol Sodium Chloride (Sodium Chloride 0.9%) 1,000 mls @ 100 mls/hr IV .Q10H [facility] Last Admin: 03/21/19 15:39 Dose: Not Given Azithromycin 500 mg/ Sodium (Chloride) 250 mls @ 250 mls/hr IVPB Q24H [facility]; Protocol Last Admin: 03/21/19 00:00 Dose: 250 mls/hr Meropenem 1 gm/ Sodium (Chloride) 100 mls @ 100 mls/hr IVPB Q8H [facility]; Protocol Last Admin: 03/21/19 14:03 Dose: 100 mls/hr Insulin Human Regular (Novolin R) 0 unit SC ACHS [facility]; Protocol Last Admin: 03/21/19 11:36 Dose: Not Given Losartan Potassium (Cozaar) 50 mg PO DAILY [facility] Last Admin: 03/21/19 09:05 Dose: 50 mg Memantine (Namenda) 5 mg PO BID [facility] Last Admin: 03/21/19 09:05 Dose: 5 mg Metformin HCl (Glucophage) 850 mg PO BID [facility] Last Admin: 03/21/19 09:05 Dose: 850 mg Physical Exam - Constitutional Appears: Confused, Cachectic, Chronically Ill - Head Exam Head Exam: ATRAUMATIC, NORMOCEPHALIC (z) - Eye Exam Eye Exam: EOMI, PERRL Pupil Exam: absent: NORMAL ACCOMODATION - ENT Exam ENT Exam: Mucous Membranes Dry, Normal External Ear Exam - Neck Exam Neck exam: Negative for: Lymphadenopathy - Respiratory Exam Respiratory Exam: Decreased Breath Sounds, Prolonged Expiratory Phase, Rhonchi - Cardiovascular Exam Cardiovascular Exam: REGULAR RHYTHM - GI/Abdominal Exam GI & Abdominal Exam: Diminished Bowel Sounds, Soft. absent: Tenderness - Rectal Exam Rectal Exam: Deferred - Exam Exam: NORMAL INSPECTION - Extremities Exam Extremities exam: Positive for: pedal edema - Back Exam Back exam: paraspinal tenderness. absent: CVA tenderness (L), CVA tenderness (R) - Neurological Exam Neurological exam: Alert, Altered, CN II-XII Intact - Psychiatric Exam Psychiatric exam: Depressed - Skin Skin Exam: Dry Results - Vital Signs Recent Vital Signs: Last Vital Signs Temp 97.9 F 03/21/19 15:54 Pulse 98 H 03/21/19 15:54 Resp 20 03/21/19 15:54 BP 127/78 03/21/19 15:54 Pulse Ox 96 03/21/19 15:54 - Labs Result Diagrams: 03/21/19 08:21 03/21/19 08:21 Labs: Laboratory Results - last 24 hr 03/20/19 03/20/19 03/21/19 19:31 21:03 07:28 WBC RBC Hgb Hct MCV MCH MCHC RDW Plt Count MPV Neut % (Auto) Lymph % (Auto) [place] % (Auto) Eos % (Auto) Baso % (Auto) Neut # (Auto) Lymph # (Auto) [place] # (Auto) Eos # (Auto) Baso # (Auto) Sodium Potassium Chloride Carbon Dioxide Anion Gap BUN Creatinine Est GFR ( Amer) Est GFR (Non-Af Amer) POC Glucose (mg/dL) 102 91 Random Glucose Calcium Phosphorus Magnesium Total Bilirubin AST ALT Alkaline Phosphatase Total Protein Albumin Globulin Albumin/Globulin Ratio C. difficile Ag & Toxin Negative 03/21/19 03/21/19 03/21/19 08:21 08:21 11:27 WBC 10.1 RBC 3.10 L Hgb 9.3 L Hct 28.4 L MCV 91.6 MCH 29.9 MCHC 32.7 L RDW 14.7 H Plt Count 550 H MPV 7.6 Neut % (Auto) 62.6 Lymph % (Auto) 25.6 [place] % (Auto) 10.3 H Eos % (Auto) 1.3 Baso % (Auto) 0.2 Neut # (Auto) 6.3 Lymph # (Auto) 2.6 [place] # (Auto) 1.0 H Eos # (Auto) 0.1 Baso # (Auto) 0.0 Sodium 140 Potassium 3.9 Chloride 111 H Carbon Dioxide 22 Anion Gap 11 BUN 9 Creatinine 0.4 L Est GFR ( Amer) > 60 Est GFR (Non-Af Amer) > 60 POC Glucose (mg/dL) 105 Random Glucose 75 Calcium 9.5 Phosphorus 2.1 L Magnesium 1.6 Total Bilirubin 0.2 AST 79 H D ALT 41 Alkaline Phosphatase 87 Total Protein 5.9 L Albumin 2.4 L Globulin 3.5 Albumin/Globulin Ratio 0.7 L C. difficile Ag & Toxin 03/21/19 16:11 WBC RBC Hgb Hct MCV MCH MCHC RDW Plt Count MPV Neut % (Auto) Lymph % (Auto) [place] % (Auto) Eos % (Auto) Baso % (Auto) Neut # (Auto) Lymph # (Auto) [place] # (Auto) Eos # (Auto) Baso # (Auto) Sodium Potassium Chloride Carbon Dioxide Anion Gap BUN Creatinine Est GFR ( Amer) Est GFR (Non-Af Amer) POC Glucose (mg/dL) 84 Random Glucose Calcium Phosphorus Magnesium Total Bilirubin AST ALT Alkaline Phosphatase Total Protein Albumin Globulin Albumin/Globulin Ratio C. difficile Ag & Toxin Assessment & Plan (1) Alzheimer's dementia Status: Chronic (2) Diabetes mellitus Status: Chronic (3) Electrolyte abnormality Status: Acute (4) ESBL (extended spectrum beta-lactamase) producing bacteria infection Status: Acute (5) Hypertension Status: Chronic (6) Infection due to ESBL-producing Escherichia coli Status: Acute (7) Pneumonia Status: Acute - Assessment and Plan (Free Text) Assessment: await cultures add merrem cont vanco
[2019-03-21] MEDS: Azithromycin 500 MG in Sodium Chloride 0.9% 250 ML IVPB SCH ×2 (23:50)
[2019-03-22] MEDS: Sodium Chloride 0.9% 1,000 ML IV SCH ×4 (02:30→23:45)
[2019-03-22] MEDS: Meropenem 1 GM in Sodium Chloride 0.9% 100 ML IVPB SCH ×3 (05:57→21:15)
[2019-03-22 07:14] LABS: BASO % 0.3 % (0.0-2.0); EOS # 0.1 K/uL (0.0-0.7); EOS % 0.9 % (0.0-4.0); LYMPH % 23.1 % (20.0-40.0); MEAN CELL VOLUME 90.1 fL (81.0-99.0); MEAN CORPUSCULAR HEMOGLOBIN 30.7 pg (27.0-31.0); MEAN PLATELET VOLUME 6.9 fL (7.2-11.7); MONO # 0.9 K/uL (0.0-0.8); MONO % 10.6 % (0.0-10.0); NEUT # 5.7 K/uL (1.8-7.0); NEUT % 65.1 % (50.0-75.0); NRBC % 0.1 % (0.0-2.0); RBC 2.93 Mil/uL (3.80-5.20); RED CELL DISTRIBUTION WIDTH 14.4 % (11.5-14.5); WHITE BLOOD COUNT 8.7 K/uL (4.8-10.8)
[2019-03-22 07:16] LABS: ALB/GLOB RATIO 0.7 (1.0-2.1); ALBUMIN 2.4 g/dL (3.5-5.0); ALT/SGPT 42 U/L (9-52); AST/SGOT 72 U/L (14-36); BLOOD UREA NITROGEN 8 mg/dL (7-17); CALCIUM 9.3 mg/dl (8.6-10.4); GFR NON-AFRICAN AMERICAN > 60
[2019-03-22] MEDS: (Novolin R) Insulin Human Regular 100 units/ml vial SC SCH ×4 (07:17→21:14)
[2019-03-22] MEDS: Divalproex 500 mg DR Tab PO SCH ×2 (09:12→17:47)
[2019-03-22] MEDS: Enoxaparin 40 mg Syringe SC SCH (09:12)
--- NOTE | 2019-03-22 11:43 | CP.PCM.PN ---
Subjective - Date & Time of Evaluation Date of Evaluation: 03/22/19 Time of Evaluation: 11:42 - Subjective Subjective: Resident Progress Note for Dr. Nance Patient examined at bedside. No acute events overnight. Patient resting co mfortably in bed in no acute distress. Patient nonverbal but responds to painful stimuli. Objective - Vital Signs/Intake and Output Vital Signs (last 24 hours): Temp Pulse Resp BP Pulse Ox 98.3 F 99 H 20 157/91 H 95 03/22/19 08:30 03/22/19 08:30 03/22/19 08:30 03/22/19 08:30 03/22/19 08:30 Intake and Output: 03/22/19 03/22/19 06:59 18:59 Intake Total 1170 800 Output Total 201 350 Balance 969 450 - Medications Medications: Current Medications Acetaminophen (Tylenol 650 Mg Supp) 650 mg [place] Q6 PRN PRN Reason: Fever >100.4 F Dextrose (Dextrose 50% Inj) 0 ml IV STAT PRN; Protocol PRN Reason: Hypoglycemia Protocol Dextrose (Glutose 15) 0 gm PO ONCE PRN; Protocol PRN Reason: Hypoglycemia Protocol Divalproex Sodium (Depakote Dr) 500 mg PO BID [facility] Last Admin: 03/22/19 09:12 Dose: 500 mg Enoxaparin Sodium (Lovenox) 40 mg SC DAILY [facility] Last Admin: 03/22/19 09:12 Dose: 40 mg Glucagon (Glucagen Diagnostic Kit) 0 mg IM STAT PRN; Protocol PRN Reason: Hypoglycemia Protocol Dextrose (Dextrose 5% In Water 1000 Ml) 1,000 mls @ 0 mls/hr IV .Q0M PRN; Protocol PRN Reason: Hypoglycemia Protocol Sodium Chloride (Sodium Chloride 0.9%) 1,000 mls @ 100 mls/hr IV .Q10H [facility] Last Admin: 03/22/19 11:16 Dose: 100 mls/hr Azithromycin 500 mg/ Sodium (Chloride) 250 mls @ 250 mls/hr IVPB Q24H [facility]; Protocol Last Admin: 03/21/19 23:50 Dose: 250 mls/hr Meropenem 1 gm/ Sodium (Chloride) 100 mls @ 100 mls/hr IVPB Q8H [facility]; Protocol Last Admin: 03/22/19 05:57 Dose: 100 mls/hr Insulin Human Regular (Novolin R) 0 unit SC ACHS [facility]; Protocol Last Admin: 03/22/19 07:17 Dose: Not Given Losartan Potassium (Cozaar) 50 mg PO DAILY [facility] Last Admin: 03/22/19 09:12 Dose: 50 mg Memantine (Namenda) 5 mg PO BID [facility] Last Admin: 03/22/19 09:13 Dose: 5 mg Metformin HCl (Glucophage) 850 mg PO BID [facility] Last Admin: 03/22/19 09:12 Dose: 850 mg - Labs Labs: 03/22/19 06:53 03/22/19 06:53 PT 12.3 SECONDS (9.7-12.2) H 03/17/19 20:24 INR 1.1 03/17/19 20:24 APTT 31.7 SECONDS (21-34) 03/17/19 20:24 - Head Exam Head Exam: ATRAUMATIC, NORMAL INSPECTION - Eye Exam Eye Exam: EOMI, Normal appearance - ENT Exam ENT Exam: Mucous Membranes Moist, Normal Exam - Neck Exam Neck Exam: Normal Inspection - Respiratory Exam Respiratory Exam: Clear to Ausculation Bilateral, NORMAL BREATHING PATTERN. absent: Decreased Breath Sounds, Respiratory Distress - Cardiovascular Exam Cardiovascular Exam: REGULAR RHYTHM, +S1, +S2 - GI/Abdominal Exam GI & Abdominal Exam: Soft, Normal Bowel Sounds. absent: Tenderness, Mass - Extremities Exam Extremities Exam: Normal Capillary Refill, Normal Inspection. absent: Joint Swelling - Neurological Exam Neurological Exam: Alert, Awake, CN II-XII Intact, Normal Gait, Oriented x3. absent: Altered - Psychiatric Exam Psychiatric exam: Normal Affect, Normal Mood - Skin Skin Exam: Dry, Intact, Normal Color Assessment and Plan - Assessment and Plan (Free Text) Assessment: Patient is an 89 year old female with past medical history of dementia, seizures, hypertension, diabetes mellitus admitted for community acquired pneumonia Plan: Community aquired pneumonia, acute with metabolic encephalopathy 2/2 to infection - Chest CT: left lower lobe infiltrates - CXR: Prominent consolidative opacification at the left lung base with left pleural effusion. - Azithromycin, vancomycin as per ID recs - leukocytosis downtrending - blood cultures- coagulase negative staphylococcus - Aspiration precautions Urinary tract infection, acute - UA: + Nitrates, trace LE, 16WBC, many bacteria - Urine cx: Positive for ESBL - Rocephin 1gm Q12H Stopped (03/21/19) Medications: Merrem 1gm IVP Q8 [facility] Electrolyte abnormalities, acute - hypomagnesemia, hypophosphatemia - monitor and replete Alzeimer's, chronic - Memantine 5mg PO BID - CT Head: 1. There is generalized parenchymal atrophy. 2. 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 HTN - Losartan 50mg PO daily - Continue to monitor vitals DM - Metformin 850mg PO BID - Accuchecks ACHS - ISS - Hypoglycemic protocol Hx of Seizures - Keppra 500mg PO BID - Seizure precautions Multiple Ulcers - Stage 4 sacral ulcer, Stage 2 L hip ulcer, bilateral heels deep tissue injury - Wound care, air mattress PPX - SCDs, Lovenox Dispo: PT recommends MARIJA, placement pending. Follow up with SW. Case reviewed with Dr. Goyo Woodson PGY-1
[2019-03-22] MEDS ORDERED: Potassium & Sodium Phosphate PO ONE (12:04)
[2019-03-22] MEDS ORDERED: Magnesium Sulfate 1 gm in D5W 1 GM/100 ML BAG IVPB ONE (12:04)
[2019-03-22] MEDS: Azithromycin 500 MG in Sodium Chloride 0.9% 250 ML IVPB SCH (23:31)
[2019-03-23] MEDS: Meropenem 1 GM in Sodium Chloride 0.9% 100 ML IVPB SCH ×3 (05:05→22:10)
[2019-03-23 06:50] LABS: BASO % 0.2 % (0.0-2.0); EOS # 0.1 K/uL (0.0-0.7); HEMOGLOBIN 9.7 g/dL (11.0-16.0); LYMPH # 3.2 K/uL (1.0-4.3); LYMPH % 32.2 % (20.0-40.0); MEAN CELL VOLUME 89.8 fL (81.0-99.0); MEAN CORPUSCULAR HEMOGLOBIN 30.7 pg (27.0-31.0); MEAN CORPUSCULAR HGB CONC 34.2 g/dL (33.0-37.0); MONO # 0.9 K/uL (0.0-0.8); MONO % 8.9 % (0.0-10.0); NEUT # 5.7 K/uL (1.8-7.0); NEUT % 57.7 % (50.0-75.0); NRBC % 0.1 % (0.0-2.0); RBC 3.16 Mil/uL (3.80-5.20); RED CELL DISTRIBUTION WIDTH 14.3 % (11.5-14.5)
[2019-03-23 07:47] LABS: ALB/GLOB RATIO 0.7 (1.0-2.1); ALBUMIN 2.5 g/dL (3.5-5.0); ALT/SGPT 38 U/L (9-52); AST/SGOT 67 U/L (14-36); BLOOD UREA NITROGEN 4 mg/dL (7-17); CALCIUM 9.1 mg/dl (8.6-10.4); GFR NON-AFRICAN AMERICAN > 60
[2019-03-23] MEDS: (Novolin R) Insulin Human Regular 100 units/ml vial SC SCH ×4 (08:28→22:08)
[2019-03-23] MEDS: Divalproex 500 mg DR Tab PO SCH ×2 (09:18→17:46)
[2019-03-23] MEDS: Enoxaparin 40 mg Syringe SC SCH (09:18)
[2019-03-23] MEDS ORDERED: Sodium Chloride 0.9% 1,000 ML IV SCH (10:31)
[2019-03-23] MEDS ORDERED: Potassium & Sodium Phosphate PO ONE (10:33)
--- NOTE | 2019-03-23 11:55 | CP.PCM.PN ---
Subjective - Date & Time of Evaluation Date of Evaluation: 03/23/19 Time of Evaluation: 11:55 - Subjective Subjective: Progress note for Dr. Nance. Patient seen and examined at bedside. No acute events overnight. Unable to obtain ROS due to clinical condition. Objective - Vital Signs/Intake and Output Vital Signs (last 24 hours): Temp Pulse Resp BP Pulse Ox 98.8 F 101 H 20 156/92 H 96 03/23/19 08:26 03/23/19 08:26 03/23/19 08:26 03/23/19 08:26 03/23/19 08:26 Intake and Output: 03/23/19 03/23/19 06:59 18:59 Intake Total 1200 850 Output Total 450 Balance 750 850 - Medications Medications: Current Medications Acetaminophen (Tylenol 650 Mg Supp) 650 mg [place] Q6 PRN PRN Reason: Fever >100.4 F Dextrose (Dextrose 50% Inj) 0 ml IV STAT PRN; Protocol PRN Reason: Hypoglycemia Protocol Dextrose (Glutose 15) 0 gm PO ONCE PRN; Protocol PRN Reason: Hypoglycemia Protocol Divalproex Sodium (Depakote Dr) 500 mg PO BID [facility] Last Admin: 03/23/19 09:18 Dose: 500 mg Enoxaparin Sodium (Lovenox) 40 mg SC DAILY [facility] Last Admin: 03/23/19 09:18 Dose: 40 mg Glucagon (Glucagen Diagnostic Kit) 0 mg IM STAT PRN; Protocol PRN Reason: Hypoglycemia Protocol Dextrose (Dextrose 5% In Water 1000 Ml) 1,000 mls @ 0 mls/hr IV .Q0M PRN; Protocol PRN Reason: Hypoglycemia Protocol Azithromycin 500 mg/ Sodium (Chloride) 250 mls @ 250 mls/hr IVPB Q24H [facility]; Protocol Last Admin: 03/22/19 23:31 Dose: 250 mls/hr Meropenem 1 gm/ Sodium (Chloride) 100 mls @ 100 mls/hr IVPB Q8H [facility]; Protocol Last Admin: 03/23/19 05:05 Dose: 100 mls/hr Sodium Chloride (Sodium Chloride 0.9%) 1,000 mls @ 50 mls/hr IV .Q20H [facility] Insulin Human Regular (Novolin R) 0 unit SC ACHS [facility]; Protocol Last Admin: 03/23/19 11:43 Dose: Not Given Losartan Potassium (Cozaar) 50 mg PO DAILY [facility] Last Admin: 03/23/19 09:19 Dose: 50 mg Memantine (Namenda) 5 mg PO BID [facility]CLUD[facility] Last Admin: 03/23/19 09:19 Dose: 5 mg Metformin HCl (Glucophage) 850 mg PO BID [facility] Last Admin: 03/23/19 09:19 Dose: 850 mg - Labs Labs: 03/23/19 06:44 03/23/19 06:44 PT 12.3 SECONDS (9.7-12.2) H 03/17/19 20:24 INR 1.1 03/17/19 20:24 APTT 31.7 SECONDS (21-34) 03/17/19 20:24 - Skin Additional comments: - Constitutional Appears: Non-toxic, No Acute Distress - Head Exam Head Exam: ATRAUMATIC, NORMOCEPHALIC - Eye Exam Eye Exam: EOMI, PERRL - ENT Exam ENT Exam: Mucous Membranes Dry - Neck Exam Neck Exam: Normal Inspection - Respiratory Exam Respiratory Exam: Clear to auscultation; absent: Rhonchi, Wheezes, Respiratory Distress, Stridor - Cardiovascular Exam Cardiovascular Exam: REGULAR RHYTHM, +S1, +S2 - GI/Abdominal Exam GI & Abdominal Exam: Soft, Normal Bowel Sounds. absent: Firm, Guarding, Rigid, Tenderness, Rebound - Extremities Exam Additional comments: Non pitting edema bilateral hands - Neurological Exam Additional comments: Awake, does not respond to questions, does not follow commands. - Skin Skin Exam: Normal Color, Warm Assessment and Plan - Assessment and Plan (Free Text) Plan: Community aquired pneumonia, acute with metabolic encephalopathy 2/2 to infection - Chest CT: left lower lobe infiltrates - CXR: Prominent consolidative opacification at the left lung base with left pleural effusion. - leukocytosis downtrending - Aspiration precautions - F/u sputum culture - Azithromycin 500mg IV Q 24H from 03/17/19 to 03/24/19 - Merrem 1gm IVP Q8 [facility] started 03/21/19 Urinary tract infection, acute - UA: + Nitrates, trace LE, 16WBC, many bacteria - Urine cx: Positive for ESBL - ID, Dr. Uriarte consulted. Help appreciated. - Rocephin 1gm Q12H discontinued (03/21/19) - Merrem 1gm IVP Q8 [facility] started 03/21/19 Bacteremia, acute - blood cultures- coagulase negative staphylococcus - possible contamination - f/u repeat blood cultures - Merrem 1gm IVP Q8 [facility] started 03/21/19 - Vanco 1g IVPB x1 on 03/21/19 Electrolyte abnormalities, acute - hypomagnesemia, hypophosphatemia - monitor and replete Alzeimer's, chronic - Memantine 5mg PO BID - CT Head: 1. There is generalized parenchymal atrophy. 2. Severe chronic per iventricular and subcortical microvascular disease is seen. HTN - Losartan 50mg PO daily - Continue to monitor vitals DM - Metformin 850mg PO BID - Accuchecks ACHS - ISS - Hypoglycemic protocol Hx of Seizures - Keppra 500mg PO BID - Seizure precautions Multiple Ulcers - Stage 4 sacral ulcer, Stage 2 L hip ulcer, bilateral heels deep tissue injury - Wound care, air mattress PPX - SCDs, Lovenox - HHD/CCD - Outpatient Dietitian referral: Glucerna TID, Maykel BID Dispo: Merrem 1gm IVP Q8H for a total of 2 weeks (last day- 04/04/19), midline ordered, f/u repeat blood culture, follow up SW for MARIJA placement Case reviewed with Dr. Goyo Miller, PGY-1
--- NOTE | 2019-03-23 12:11 | CP.PCM.PN ---
Subjective - Date & Time of Evaluation Date of Evaluation: 03/23/19 Time of Evaluation: 09:00 - Subjective Subjective: remains weak and lethargic Objective - Vital Signs/Intake and Output Vital Signs (last 24 hours): Temp Pulse Resp BP Pulse Ox 98.8 F 101 H 20 156/92 H 96 03/23/19 08:26 03/23/19 08:26 03/23/19 08:26 03/23/19 08:26 03/23/19 08:26 Intake and Output: 03/23/19 03/23/19 06:59 18:59 Intake Total 1200 850 Output Total 450 Balance 750 850 - Medications Medications: Current Medications Acetaminophen (Tylenol 650 Mg Supp) 650 mg [place] Q6 PRN PRN Reason: Fever >100.4 F Dextrose (Dextrose 50% Inj) 0 ml IV STAT PRN; Protocol PRN Reason: Hypoglycemia Protocol Dextrose (Glutose 15) 0 gm PO ONCE PRN; Protocol PRN Reason: Hypoglycemia Protocol Divalproex Sodium (Depakote Dr) 500 mg PO BID [facility] Last Admin: 03/23/19 09:18 Dose: 500 mg Enoxaparin Sodium (Lovenox) 40 mg SC DAILY [facility] Last Admin: 03/23/19 09:18 Dose: 40 mg Glucagon (Glucagen Diagnostic Kit) 0 mg IM STAT PRN; Protocol PRN Reason: Hypoglycemia Protocol Dextrose (Dextrose 5% In Water 1000 Ml) 1,000 mls @ 0 mls/hr IV .Q0M PRN; Protocol PRN Reason: Hypoglycemia Protocol Azithromycin 500 mg/ Sodium (Chloride) 250 mls @ 250 mls/hr IVPB Q24H [facility]; Protocol Last Admin: 03/22/19 23:31 Dose: 250 mls/hr Meropenem 1 gm/ Sodium (Chloride) 100 mls @ 100 mls/hr IVPB Q8H [facility]; Protocol Last Admin: 03/23/19 05:05 Dose: 100 mls/hr Sodium Chloride (Sodium Chloride 0.9%) 1,000 mls @ 50 mls/hr IV .Q20H [facility] Insulin Human Regular (Novolin R) 0 unit SC ACHS [facility]; Protocol Last Admin: 03/23/19 11:43 Dose: Not Given Losartan Potassium (Cozaar) 50 mg PO DAILY [facility] Last Admin: 03/23/19 09:19 Dose: 50 mg Memantine (Namenda) 5 mg PO BID [facility] Last Admin: 03/23/19 09:19 Dose: 5 mg Metformin HCl (Glucophage) 850 mg PO BID [facility] Last Admin: 03/23/19 09:19 Dose: 850 mg - Labs Labs: 03/23/19 06:44 03/23/19 06:44 PT 12.3 SECONDS (9.7-12.2) H 03/17/19 20:24 INR 1.1 03/17/19 20:24 APTT 31.7 SECONDS (21-34) 03/17/19 20:24 - Constitutional Appears: Non-toxic, Confused, Chronically Ill - Head Exam Head Exam: ATRAUMATIC, NORMAL INSPECTION, NORMOCEPHALIC - Eye Exam Eye Exam: EOMI, Normal appearance, PERRL Pupil Exam: NORMAL ACCOMODATION, PERRL - ENT Exam ENT Exam: Mucous Membranes Moist, Normal Exam - Neck Exam Neck Exam: Full ROM, Normal Inspection. absent: Lymphadenopathy - Respiratory Exam Respiratory Exam: Decreased Breath Sounds, Prolonged Expiratory Phase, Rhonchi - Cardiovascular Exam Cardiovascular Exam: REGULAR RHYTHM, +S1, +S2. absent: Murmur - GI/Abdominal Exam GI & Abdominal Exam: Soft, Normal Bowel Sounds. absent: Tenderness - Rectal Exam Rectal Exam: Deferred - Extremities Exam Extremities Exam: Full ROM, Normal Capillary Refill, Normal Inspection. absent: Joint Swelling, Pedal Edema - Back Exam Back Exam: NORMAL INSPECTION - Neurological Exam Neurological Exam: Alert, Awake, CN II-XII Intact, Normal Gait, Oriented x3 - Psychiatric Exam Psychiatric exam: Normal Affect, Normal Mood - Skin Skin Exam: Dry, Intact, Normal Color, Warm Assessment and Plan (1) Alzheimer's dementia Status: Chronic (2) Diabetes mellitus Status: Chronic (3) Electrolyte abnormality Status: Acute (4) ESBL (extended spectrum beta-lactamase) producing bacteria infection Status: Acute (5) Hypertension Status: Chronic (6) Infection due to ESBL-producing Escherichia coli Status: Acute (7) Pneumonia Status: Acute - Assessment and Plan (Free Text) Assessment: coag neg staph in blood likely a contaminant esbl e coli urine cont m,errem x 14 days
[2019-03-23] MEDS: Sodium Chloride 0.9% 1,000 ML IV SCH (21:33)
[2019-03-24] MEDS: Azithromycin 500 MG in Sodium Chloride 0.9% 250 ML IVPB SCH (00:40)
[2019-03-24] MEDS: Meropenem 1 GM in Sodium Chloride 0.9% 100 ML IVPB SCH ×3 (05:39→21:35)
--- NOTE | 2019-03-24 07:56 | CP.PCM.PN ---
Subjective - Date & Time of Evaluation Date of Evaluation: 03/24/19 Time of Evaluation: 07:56 - Subjective Subjective: Resident Progress Note for Dr. Nance Patient examined at bedside. No acute events overnight. NOK refusing subacute rehab. S/p midline placement. Plan for discharge tomorrow to home with midline and two week prescription for Merrem as per ID recs. Objective - Vital Signs/Intake and Output Vital Signs (last 24 hours): Temp Pulse Resp BP Pulse Ox 98.6 F 93 H 20 149/88 95 03/24/19 00:00 03/24/19 00:00 03/24/19 00:00 03/24/19 00:00 03/24/19 00:00 Intake and Output: 03/24/19 03/24/19 06:59 18:59 Intake Total 1200 Output Total 500 Balance 700 - Medications Medications: Current Medications Acetaminophen (Tylenol 650 Mg Supp) 650 mg [place] Q6 PRN PRN Reason: Fever >100.4 F Dextrose (Dextrose 50% Inj) 0 ml IV STAT PRN; Protocol PRN Reason: Hypoglycemia Protocol Dextrose (Glutose 15) 0 gm PO ONCE PRN; Protocol PRN Reason: Hypoglycemia Protocol Divalproex Sodium (Depakote Dr) 500 mg PO BID [facility] Last Admin: 03/23/19 17:46 Dose: 500 mg Enoxaparin Sodium (Lovenox) 40 mg SC DAILY [facility] Last Admin: 03/23/19 09:18 Dose: 40 mg Glucagon (Glucagen Diagnostic Kit) 0 mg IM STAT PRN; Protocol PRN Reason: Hypoglycemia Protocol Dextrose (Dextrose 5% In Water 1000 Ml) 1,000 mls @ 0 mls/hr IV .Q0M PRN; Protocol PRN Reason: Hypoglycemia Protocol Azithromycin 500 mg/ Sodium (Chloride) 250 mls @ 250 mls/hr IVPB Q24H [facility]; Protocol Stop: 03/24/19 23:59 Last Admin: 03/24/19 00:40 Dose: 250 mls/hr Meropenem 1 gm/ Sodium (Chloride) 100 mls @ 100 mls/hr IVPB Q8H [facility]; Protocol Last Admin: 03/24/19 05:39 Dose: 100 mls/hr Sodium Chloride (Sodium Chloride 0.9%) 1,000 mls @ 50 mls/hr IV .Q20H [facility] Last Admin: 03/23/19 21:33 Dose: 50 mls/hr Insulin Human Regular (Novolin R) 0 unit SC ACHS [facility]; Protocol Last Admin: 03/23/19 22:08 Dose: Not Given Losartan Potassium (Cozaar) 50 mg PO DAILY [facility] Last Admin: 03/23/19 09:19 Dose: 50 mg Memantine (Namenda) 5 mg PO BID [facility] Last Admin: 03/23/19 17:45 Dose: 5 mg Metformin HCl (Glucophage) 850 mg PO BID [facility] Last Admin: 03/23/19 17:44 Dose: 850 mg - Labs Labs: 03/23/19 06:44 03/23/19 06:44 PT 12.3 SECONDS (9.7-12.2) H 03/17/19 20:24 INR 1.1 03/17/19 20:24 APTT 31.7 SECONDS (21-34) 03/17/19 20:24 - Constitutional Appears: Non-toxic, No Acute Distress - Head Exam Head Exam: ATRAUMATIC, NORMOCEPHALIC - Eye Exam Eye Exam: EOMI, PERRL - ENT Exam ENT Exam: Mucous Membranes Dry - Neck Exam Neck Exam: Normal Inspection - Respiratory Exam Respiratory Exam: Clear to auscultation; absent: Rhonchi, Wheezes, Respiratory Distress, Stridor - Cardiovascular Exam Cardiovascular Exam: REGULAR RHYTHM, +S1, +S2 - GI/Abdominal Exam GI & Abdominal Exam: Soft, Normal Bowel Sounds. absent: Firm, Guarding, Rigid, Tenderness, Rebound - Extremities Exam Additional comments: Non pitting edema bilateral hands - Neurological Exam Additional comments: Awake, does not respond to questions, does not follow commands. - Skin Skin Exam: Normal Color, Warm Assessment and Plan - Assessment and Plan (Free Text) Plan: Community aquired pneumonia, acute with metabolic encephalopathy 2/2 to infection - Chest CT: left lower lobe infiltrates - CXR: Prominent consolidative opacification at the left lung base with left pleural effusion. - leukocytosis downtrending - Aspiration precautions - F/u sputum culture - Azithromycin 500mg IV Q 24H from 03/17/19 to 03/24/19 - Merrem 1gm IVP Q8 [facility] started 03/21/19 Urinary tract infection, acute - UA: + Nitrates, trace LE, 16WBC, many bacteria - Urine cx: Positive for ESBL - ID, Dr. Uriarte consulted. Help appreciated. - Rocephin 1gm Q12H discontinued (03/21/19) - Merrem 1gm IVP Q8 [facility] started 03/21/19 Bacteremia, acute - blood cultures- coagulase negative staphylococcus - possible contamination - repeat blood culture neg x1, gram positive cocci x1 (likely contaminant as per ID) - Merrem 1gm IVP Q8 [facility] started 03/21/19 Electrolyte abnormalities, acute - hypomagnesemia, hypophosphatemia - monitor and replete Alzeimer's, chronic - Memantine 5mg PO BID - CT Head: 1. There is generalized parenchymal atrophy. 2. 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 HTN, chronic - Losartan 50mg PO daily - Continue to monitor vitals DM, chronic - Metformin 850mg PO BID - Accuchecks ACHS - ISS - Hypoglycemic protocol Hx of Seizures, chronic - Keppra 500mg PO BID - Seizure precautions Multiple Ulcers, chronic - Stage 4 sacral ulcer, Stage 2 L hip ulcer, bilateral heels deep tissue injury - Wound care, air mattress PPX - SCDs, Lovenox - HHD/CCD - [employer] referral: Glucerna TID, Maykel BID Dispo: Plan for discharge home tomorrow Case reviewed with Dr. Goyo Woodson PGY-1
[2019-03-24] MEDS: (Novolin R) Insulin Human Regular 100 units/ml vial SC SCH ×4 (07:57→21:46)
[2019-03-24 09:23] LABS: ALB/GLOB RATIO 0.7 (1.0-2.1); ALBUMIN 2.4 g/dL (3.5-5.0); ALT/SGPT 32 U/L (9-52); AST/SGOT 62 U/L (14-36); BLOOD UREA NITROGEN 6 mg/dL (7-17); GFR NON-AFRICAN AMERICAN > 60
[2019-03-24] MEDS: Divalproex 500 mg DR Tab PO SCH ×2 (09:59→17:25)
[2019-03-24] MEDS: Enoxaparin 40 mg Syringe SC SCH (09:59)
[2019-03-24 11:31] LABS: BASO % 0.3 % (0.0-2.0); EOS # 0.1 K/uL (0.0-0.7); EOS % 0.9 % (0.0-4.0); LYMPH # 2.1 K/uL (1.0-4.3); MEAN CELL VOLUME 88.5 fL (81.0-99.0); MEAN CORPUSCULAR HEMOGLOBIN 30.6 pg (27.0-31.0); MEAN CORPUSCULAR HGB CONC 34.6 g/dL (33.0-37.0); MEAN PLATELET VOLUME 6.8 fL (7.2-11.7); MONO # 0.8 K/uL (0.0-0.8); NEUT # 6.4 K/uL (1.8-7.0); NEUT % 67.8 % (50.0-75.0); NRBC % 0.1 % (0.0-2.0); RBC 2.92 Mil/uL (3.80-5.20); RED CELL DISTRIBUTION WIDTH 14.3 % (11.5-14.5); WHITE BLOOD COUNT 9.5 K/uL (4.8-10.8)
--- NOTE | 2019-03-24 16:48 | CP.PCM.PN ---
Subjective - Date & Time of Evaluation Date of Evaluation: 03/24/19 Time of Evaluation: 08:00 - Subjective Subjective: NOK refusing MARIJA for d/c on IV rx for ESBL UTI Objective - Vital Signs/Intake and Output Vital Signs (last 24 hours): Temp Pulse Resp BP Pulse Ox 98.6 F 103 H 20 143/82 94 L 03/24/19 15:00 03/24/19 15:00 03/24/19 15:00 03/24/19 15:00 03/24/19 15:00 Intake and Output: 03/24/19 03/24/19 06:59 18:59 Intake Total 1200 Output Total 500 Balance 700 - Medications Medications: Current Medications Acetaminophen (Tylenol 650 Mg Supp) 650 mg [place] Q6 PRN PRN Reason: Fever >100.4 F Dextrose (Dextrose 50% Inj) 0 ml IV STAT PRN; Protocol PRN Reason: Hypoglycemia Protocol Dextrose (Glutose 15) 0 gm PO ONCE PRN; Protocol PRN Reason: Hypoglycemia Protocol Divalproex Sodium (Depakote Dr) 500 mg PO BID [facility] Last Admin: 03/24/19 09:59 Dose: 500 mg Enoxaparin Sodium (Lovenox) 40 mg SC DAILY [facility] Last Admin: 03/24/19 09:59 Dose: 40 mg Glucagon (Glucagen Diagnostic Kit) 0 mg IM STAT PRN; Protocol PRN Reason: Hypoglycemia Protocol Dextrose (Dextrose 5% In Water 1000 Ml) 1,000 mls @ 0 mls/hr IV .Q0M PRN; Protocol PRN Reason: Hypoglycemia Protocol Azithromycin 500 mg/ Sodium (Chloride) 250 mls @ 250 mls/hr IVPB Q24H [facility]; Protocol Stop: 03/24/19 23:59 Last Admin: 03/24/19 00:40 Dose: 250 mls/hr Meropenem 1 gm/ Sodium (Chloride) 100 mls @ 100 mls/hr IVPB Q8H [facility]; Protocol Last Admin: 03/24/19 13:48 Dose: 100 mls/hr Sodium Chloride (Sodium Chloride 0.9%) 1,000 mls @ 50 mls/hr IV .Q20H [facility] Last Admin: 03/23/19 21:33 Dose: 50 mls/hr Insulin Human Regular (Novolin R) 0 unit SC ACHS [facility]; Protocol Last Admin: 03/24/19 12:06 Dose: Not Given Losartan Potassium (Cozaar) 50 mg PO DAILY [facility] Last Admin: 03/24/19 09:59 Dose: 50 mg Memantine (Namenda) 5 mg PO BID [facility] Last Admin: 03/24/19 09:59 Dose: 5 mg Metformin HCl (Glucophage) 850 mg PO BID [facility] Last Admin: 03/24/19 09:59 Dose: 850 mg - Labs Labs: 03/24/19 11:17 03/24/19 08:37 PT 12.3 SECONDS (9.7-12.2) H 03/17/19 20:24 INR 1.1 03/17/19 20:24 APTT 31.7 SECONDS (21-34) 03/17/19 20:24 - Constitutional Appears: Non-toxic, Confused, Chronically Ill - Head Exam Head Exam: NORMOCEPHALIC - Eye Exam Eye Exam: absent: Scleral icterus Pupil Exam: NORMAL ACCOMODATION - ENT Exam ENT Exam: Mucous Membranes Dry - Neck Exam Neck Exam: absent: Lymphadenopathy - Respiratory Exam Respiratory Exam: Decreased Breath Sounds - Cardiovascular Exam Cardiovascular Exam: REGULAR RHYTHM - GI/Abdominal Exam GI & Abdominal Exam: Distended - Rectal Exam Rectal Exam: Deferred - Exam Exam: NORMAL INSPECTION - Extremities Exam Extremities Exam: absent: Pedal Edema - Back Exam Back Exam: absent: CVA tenderness (L), CVA tenderness (R) - Neurological Exam Neurological Exam: Alert, Awake Assessment and Plan (1) Alzheimer's dementia Status: Chronic (2) Diabetes mellitus Status: Chronic (3) Electrolyte abnormality Status: Acute (4) ESBL (extended spectrum beta-lactamase) producing bacteria infection Status: Acute (5) Hypertension Status: Chronic (6) Infection due to ESBL-producing Escherichia coli Status: Acute (7) Pneumonia Status: Acute - Assessment and Plan (Free Text) Assessment: cont rx as out pt
[2019-03-24] MEDS: Sodium Chloride 0.9% 1,000 ML IV SCH (17:26)
[2019-03-25] MEDS: Meropenem 1 GM in Sodium Chloride 0.9% 100 ML IVPB SCH ×2 (05:00→13:44)
--- NOTE | 2019-03-25 07:12 | CP.PCM.PN ---
Objective - Vital Signs/Intake and Output Vital Signs (last 24 hours): Temp Pulse Resp BP Pulse Ox 98 F 98 H 20 154/84 H 96 03/24/19 23:40 03/24/19 23:40 03/24/19 23:40 03/24/19 23:40 03/24/19 23:40 Intake and Output: 03/25/19 03/25/19 06:59 18:59 Intake Total 400 Balance 400 - Medications Medications: Current Medications Acetaminophen (Tylenol 650 Mg Supp) 650 mg [place] Q6 PRN PRN Reason: Fever >100.4 F Dextrose (Dextrose 50% Inj) 0 ml IV STAT PRN; Protocol PRN Reason: Hypoglycemia Protocol Dextrose (Glutose 15) 0 gm PO ONCE PRN; Protocol PRN Reason: Hypoglycemia Protocol Divalproex Sodium (Depakote Dr) 500 mg PO BID [facility] Last Admin: 03/24/19 17:25 Dose: 500 mg Enoxaparin Sodium (Lovenox) 40 mg SC DAILY [facility] Last Admin: 03/24/19 09:59 Dose: 40 mg Glucagon (Glucagen Diagnostic Kit) 0 mg IM STAT PRN; Protocol PRN Reason: Hypoglycemia Protocol Dextrose (Dextrose 5% In Water 1000 Ml) 1,000 mls @ 0 mls/hr IV .Q0M PRN; Protocol PRN Reason: Hypoglycemia Protocol Meropenem 1 gm/ Sodium (Chloride) 100 mls @ 100 mls/hr IVPB Q8H [facility]; Protocol Last Admin: 03/25/19 05:00 Dose: 100 mls/hr Sodium Chloride (Sodium Chloride 0.9%) 1,000 mls @ 50 mls/hr IV .Q20H [facility] Last Admin: 03/24/19 17:26 Dose: 50 mls/hr Azithromycin 500 mg/ Sodium (Chloride) 250 mls @ 250 mls/hr IVPB DAILY [facility]; Protocol Insulin Human Regular (Novolin R) 0 unit SC ACHS [facility]; Protocol Last Admin: 03/24/19 21:46 Dose: Not Given Losartan Potassium (Cozaar) 50 mg PO DAILY [facility] Last Admin: 03/24/19 09:59 Dose: 50 mg Memantine (Namenda) 5 mg PO BID [facility] Last Admin: 03/24/19 17:25 Dose: 5 mg Metformin HCl (Glucophage) 850 mg PO BID [facility] Last Admin: 03/24/19 17:09 Dose: 850 mg - Labs Labs: 03/24/19 11:17 03/24/19 08:37 PT 12.3 SECONDS (9.7-12.2) H 03/17/19 20:24 INR 1.1 03/17/19 20:24 APTT 31.7 SECONDS (21-34) 03/17/19 20:24
[2019-03-25] MEDS: (Novolin R) Insulin Human Regular 100 units/ml vial SC SCH ×3 (07:20→16:30)
[2019-03-25 07:55] LABS: BASO % 0.4 % (0.0-2.0); EOS # 0.1 K/uL (0.0-0.7); EOS % 0.9 % (0.0-4.0); HEMOGLOBIN 9.7 g/dL (11.0-16.0); LYMPH # 2.7 K/uL (1.0-4.3); LYMPH % 25.9 % (20.0-40.0); MEAN CELL VOLUME 89.2 fL (81.0-99.0); MEAN CORPUSCULAR HGB CONC 33.7 g/dL (33.0-37.0); MEAN PLATELET VOLUME 7.3 fL (7.2-11.7); MONO # 0.8 K/uL (0.0-0.8); NEUT # 6.7 K/uL (1.8-7.0); NEUT % 64.8 % (50.0-75.0); NRBC % 0.1 % (0.0-2.0); RBC 3.23 Mil/uL (3.80-5.20); RED CELL DISTRIBUTION WIDTH 14.4 % (11.5-14.5); WHITE BLOOD COUNT 10.4 K/uL (4.8-10.8)
[2019-03-25 08:09] LABS: ALB/GLOB RATIO 0.7 (1.0-2.1); ALBUMIN 2.7 g/dL (3.5-5.0); ALT/SGPT 36 U/L (9-52); AST/SGOT 81 U/L (14-36); BLOOD UREA NITROGEN 5 mg/dL (7-17); GFR NON-AFRICAN AMERICAN > 60
[2019-03-25] MEDS: Enoxaparin 40 mg Syringe SC SCH (09:41)
[2019-03-25] MEDS: Divalproex 500 mg DR Tab PO SCH ×2 (09:41→17:35)
[2019-03-25] MEDS ORDERED: Azithromycin 500 MG in Sodium Chloride 0.9% 250 ML IVPB SCH (10:00)
[2019-03-25] MEDS: Sodium Chloride 0.9% 1,000 ML IV SCH (12:32)
--- NOTE | 2019-03-25 15:57 | CP.PCM.DIS ---
Provider - Provider Date of Admission: 03/18/19 11:55 Attending physician: Russell Nance Jr, MD Primary care physician: Dr. Russell Nance Consults: 03/18/19 08:00 Nursing Referral for Wound Care Routine Comment: Physician Instructions: Reason For Exam: pressure ulcers: sacrum, left hip and dimitri heels. 03/21/19 10:58 Infectious Disease Consult Routine Comment: Consulting Provider: Darshan Uriarte Consulting Physician: Darshan Uriarte Reason for Consult: esbl positive in urine Time Spent in preparation of Discharge (in minutes): 35 Diagnosis - Discharge Diagnosis (1) Pneumonia Status: Resolved (2) ESBL (extended spectrum beta-lactamase) producing bacteria infection Status: Acute (3) Seizure Status: Chronic Priority: High (4) Alzheimer's dementia Status: Chronic (5) Diabetes mellitus Status: Chronic (6) Hypertension Status: Chronic Hospital Course - Lab Results Lab Results: Micro Results 03/21/19 19:20 Blood-Venous Blood Culture - Preliminary NO GROWTH AFTER 3 DAYS 03/21/19 19:50 Blood-Venous S.aureus & Coag-Neg Staph PNA FISH - Final TEST NOT PERFORMED 03/21/19 19:50 Blood-Venous Blood Culture - Preliminary Gram Positive Cocci 03/21/19 19:50 Blood-Venous Gram Stain - Final 03/17/19 22:36 Blood Blood Culture - Final NO GROWTH AFTER 5 DAYS 03/17/19 22:36 Blood Gram Stain - Final TEST NOT PERFORMED 03/17/19 22:36 Blood S.aureus & Coag-Neg Staph PNA FISH - Final 03/17/19 22:36 Blood Blood Culture - Final Coagulase Neg Staphylococcus 03/17/19 22:36 Blood Gram Stain - Final 03/17/19 22:44 Urine,Catheterized Urine Culture - Final Escherichia Coli Most Recent Lab Values WBC 10.4 K/uL (4.8-10.8) 03/25/19 07:46 RBC 3.23 Mil/uL (3.80-5.20) L 03/25/19 07:46 Hgb 9.7 g/dL (11.0-16.0) L 03/25/19 07:46 Hct 28.8 % (34.0-47.0) L 03/25/19 07:46 MCV 89.2 fL (81.0-99.0) 03/25/19 07:46 MCH 30.0 pg (27.0-31.0) 03/25/19 07:46 MCHC 33.7 g/dL (33.0-37.0) 03/25/19 07:46 RDW 14.4 % (11.5-14.5) 03/25/19 07:46 Plt Count 599 K/uL (130-400) H 03/25/19 07:46 MPV 7.3 fL (7.2-11.7) 03/25/19 07:46 Neut % (Auto) 64.8 % (50.0-75.0) 03/25/19 07:46 Lymph % (Auto) 25.9 % (20.0-40.0) 03/25/19 07:46 Faulk % (Auto) 8.0 % (0.0-10.0) 03/25/19 07:46 Eos % (Auto) 0.9 % (0.0-4.0) 03/25/19 07:46 Baso % (Auto) 0.4 % (0.0-2.0) 03/25/19 07:46 Neut # (Auto) 6.7 K/uL (1.8-7.0) 03/25/19 07:46 Lymph # (Auto) 2.7 K/uL (1.0-4.3) 03/25/19 07:46 Faulk # (Auto) 0.8 K/uL (0.0-0.8) 03/25/19 07:46 Eos # (Auto) 0.1 K/uL (0.0-0.7) 03/25/19 07:46 Baso # (Auto) 0.0 K/uL (0.0-0.2) 03/25/19 07:46 PT 12.3 SECONDS (9.7-12.2) H 03/17/19 20:24 INR 1.1 03/17/19 20:24 APTT 31.7 SECONDS (21-34) 03/17/19 20:24 Puncture Site Lr 03/17/19 19:54 pCO2 35 mm/Hg (35-45) 03/17/19 19:54 pO2 76 mm/Hg (80-100) L 03/17/19 19:54 HCO3 26.9 mmol/L (21-28) 03/17/19 19:54 ABG pH 7.48 (7.35-7.45) H 03/17/19 19:54 ABG Total CO2 27.2 mmol/L (22-28) 03/17/19 19:54 ABG O2 Saturation 97.7 % (95-98) 03/17/19 19:54 ABG Base Excess 2.6 mmol/L (-2.0-3.0) 03/17/19 19:54 ABG Hemoglobin 9.9 g/dL (11.7-17.4) L 03/17/19 19:54 ABG Carboxyhemoglobin 2.6 % (0.5-1.5) H 03/17/19 19:54 POC ABG HHb (Measured) 2.2 % (0.0-5.0) 03/17/19 19:54 ABG Methemoglobin 1.8 % (0.0-3.0) 03/17/19 19:54 Davin Test Pos 03/17/19 19:54 A-a O2 Difference 30.0 mm/Hg 03/17/19 19:54 Respiratory Index 0.4 03/17/19 19:54 Hgb O2 Saturation 93.4 % (95.0-98.0) L 03/17/19 19:54 FiO2 21.0 % 03/17/19 19:54 Sodium 138 mmol/L (132-148) 03/25/19 07:46 Potassium 3.9 mmol/L (3.6-5.2) 03/25/19 07:46 Chloride 104 mmol/L (98-107) 03/25/19 07:46 Carbon Dioxide 31 mmol/L (22-30) H 03/25/19 07:46 Anion Gap 7 (10-20) L 03/25/19 07:46 BUN 5 mg/dL (7-17) L 03/25/19 07:46 Creatinine 0.4 mg/dL (0.7-1.2) L 03/25/19 07:46 Est GFR ( Amer) > 60 03/25/19 07:46 Est GFR (Non-Af Amer) > 60 03/25/19 07:46 POC Glucose (mg/dL) 113 mg/dL (65-110) H 03/25/19 11:05 Random Glucose 92 mg/dL (65-105) 03/25/19 07:46 Calcium 9.0 mg/dl (8.6-10.4) 03/25/19 07:46 Phosphorus 2.0 mg/dL (2.5-4.5) L 03/25/19 07:46 Magnesium 1.8 mg/dL (1.6-2.3) 03/25/19 07:46 Total Bilirubin 0.5 mg/dL (0.2-1.3) 03/25/19 07:46 AST 81 U/L (14-36) H D 03/25/19 07:46 ALT 36 U/L (9-52) 03/25/19 07:46 Alkaline Phosphatase 100 U/L (38-126) 03/25/19 07:46 Total Protein 6.5 g/dL (6.3-8.3) 03/25/19 07:46 Albumin 2.7 g/dL (3.5-5.0) L 03/25/19 07:46 Globulin 3.8 gm/dL (2.2-3.9) 03/25/19 07:46 Albumin/Globulin Ratio 0.7 (1.0-2.1) L 03/25/19 07:46 Urine Color Tos[place] (YELLOW) 03/17/19 19:38 Urine Clarity Hazy (Clear) 03/17/19 19:38 Urine pH 5.0 (5.0-8.0) 03/17/19 19:38 Ur Specific [place] 1.020 (1.003-1.030) 03/17/19 19:38 Urine Protein Negative mg/dL (NEGATIVE) 03/17/19 19:38 Urine Glucose (UA) Normal mg/dL (Normal) 03/17/19 19:38 Urine Ketones Negative mg/dL (NEGATIVE) 03/17/19 19:38 Urine Blood Negative (NEGATIVE) 03/17/19 19:38 Urine Nitrate Positive (NEGATIVE) H 03/17/19 19:38 Urine Bilirubin Negative (NEGATIVE) 03/17/19 19:38 Urine Urobilinogen 4.0 mg/dL (0.2-1.0) H 03/17/19 19:38 Ur Leukocyte Esterase Trace Krysta/uL (Negative) 03/17/19 19:38 Urine WBC (Auto) 16 /hpf (0-5) H 03/17/19 19:38 Urine RBC (Auto) 2 /hpf (0-3) 03/17/19 19:38 Ur Squamous Epith Cells < 1 /hpf (0-5) 03/17/19 19:38 Urine Bacteria Many (<OCC) H 03/17/19 19:38 C. difficile Ag & Toxin Negative (NEGATIVE) 03/20/19 19:31 - Hospital Course Hospital Course: On admission: 89F, with a PMHx of HTN and diabetes, and seizures who presents to the ED with her family c/o feeling weak and difficulty eating at home as per family. Family denies any head injury or syncopal episode. Per family pt has been coughing and felt warm recently, denies any productive sputum, denies any nausea or vomiting, Pt has trouble swallowing per family. States she has been bed ridden for 2 weeks and unable to ambulate. During hospital stay: CXR was done which showed prominent consolidative opacification at the left lung base with left pleural effusion. Chest CT confirmed left lower lobe infiltrates. Patient was placed on azithromycin. Urinalysis showed + Nitrates, trace LE, 16WBC, many bacteria. Urine culture was positive for ESBL. ID was consulted. Patient was on rocephin which was switched to merrem. Blood cultures were noted for coagulase negative staphylococcus. Repeat blood cultures were neg x1, gram positive cocci x1. This was likely contaminant. CT head was done which showed 1. There is generalized parenchymal atrophy. 2. 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 Wound care was consulted for patient's multiple ulcers. Patient had stage 4 sacral ulcer, stage 2 left hip ulcer, bilateral heels deep tissue injury. Patient improved throughout admission. Recommendation was made for patient to go to subacute rehab, however next of kin who is the daughter refused. Patient was optimized for discharge. Midline was placed. Patient was discharged with prescription to continue merrem, with home wound care, nursing aides, physical therapy, air mattress. Please see EMR for full summary. Discharge Exam - Additional Findings Additional findings: - Constitutional Appears: Non-toxic, No Acute Distress - Head Exam Head Exam: ATRAUMATIC, NORMOCEPHALIC - Eye Exam Eye Exam: EOMI, PERRL - ENT Exam ENT Exam: Mucous Membranes Dry - Neck Exam Neck Exam: Normal Inspection - Respiratory Exam Respiratory Exam: Clear to auscultation. absent: Rhonchi, Wheezes, Respiratory Distress, Stridor - Cardiovascular Exam Cardiovascular Exam: REGULAR RHYTHM, +S1, +S2 - GI/Abdominal Exam GI & Abdominal Exam: Soft, Normal Bowel Sounds. absent: Firm, Guarding, Rigid, Tenderness, Rebound - Extremities Exam Additional comments: Non pitting edema bilateral hands - Neurological Exam Additional comments: Awake, does not respond to questions, does not follow commands. - Skin Skin Exam: Normal Color, Warm Discharge Plan - Discharge Medications Prescriptions: Acetaminophen [Tylenol Arthritis] 650 mg PO Q8 PRN #30 tablet.er PRN Reason: Pain, Moderate (4-7) Aspirin [Aspirin Chewable] 81 mg PO DAILY 14 Days #28 chew Cyanocobalamin (Vitamin B-12) [Vitamin B-12] 1,000 mcg PO DAILY 14 Days #14 capsule Divalproex [Depakote DR] 500 mg PO BID 14 Days #60 tcp Honey [Medihoney] 103 ml TP DAILY 14 Days paste..ml. Losartan Potassium 50 mg PO DAILY #14 tablet Memantine [Namenda] 5 mg PO BID 14 Days #28 tab Meropenem [Merrem IV] 1 gm IVPB Q8H 11 Days vial metFORMIN [glucOPHAGE] 850 mg PO BID 14 Days #28 tab - Follow Up Plan Condition: STABLE Disposition: HOME/ ROUTINE Patient education suggested?: Yes Instructions: Pneumonia, Adult (DC), Wound Care (DC) Additional Instructions: Wound care instructions: Assessment revealed, Left sacral unstagable pressure injury. Recommending to apply medihoney to injury, then cover with foam dressing to be changed every other day. Assessed right sacral and found stage 4 pressure injury, with undermining and foul odor. Recommending the following: CLEANSING RIGHT SACRAL PRESSURE INJURY WELL USING NSS MOISTENED GAUZE (MAKING SURE INJURY CLEANED OUT WELL (HAS UNDERMINING AT 9 AND 6 OCLOCK), UNWRAP 2 INCH GAUZE ROLL; APPLY BEAD OF MEDIHONEY TO CENTER OF GAUZE, THEN FOLD OVER, AND USING A COTTON TIPPED APPLICATOR, PACK INTO INJURY--(REMEMBERING THE UNDERMINING AT 9 AND 6 OCLOCK,) FOR PACKING, THEN COVER WITH FOAM DRESSING TO BE CHANGED EVERY OTHER DAY OR PRN. Assessed left hip, found stage 2 pressure injury. Recommending to apply medihoney and covering with foam dressing to be done every other day or PRN. Assessed bilateral heels; found DTI's to both heels. REcommending skin prep wipes, then covering with light erasmo dressing to be done daily. Mychal of 12, Recommending prevalon boots to both heels, and foam wedge to optimize offloading Recommending specialty P500 low air loss mattress to optimize the healing process, recommended dietary consult to optimize protein needs. Will continue to monitor. Follow up with your primary medical doctor within one week. Resume your home medications as prescribed. Return to ED if symptoms return or worsen Referrals: Russell Nance Jr., MD [Medical Doctor] -
[2019-03-25 16:10] VITALS: BP 160/77; PULSE 103; TEMP 98.3; O2SAT 95
== END 2019-03-25 20:50 | disposition home or self-care (01) | DRG 541 ==
LOC: C.ER 19:06 → C.3T 23:07 → OBSVTOIN 03-18 11:55 → C.3T 03-20 06:07
PROVIDERS: ADMIT Internal Medicine; ATTEND Internal Medicine
DX: J18.1 Lobar pneumonia, unspecified organism (principal); L89.154 Pressure ulcer of sacral region, stage 4; N39.0 Urinary tract infection, site not specified; B96.20 Unspecified Escherichia coli [E. coli] as the cause of diseases classified elsewhere; L89.222 Pressure ulcer of left hip, stage 2; L89.629 Pressure ulcer of left heel, unspecified stage; L89.619 Pressure ulcer of right heel, unspecified stage; J90 Pleural effusion, not elsewhere classified; E11.9 Type 2 diabetes mellitus without complications; I10 Essential (primary) hypertension; Z16.12 Extended spectrum beta lactamase (ESBL) resistance; R63.3 Feeding difficulties; J45.909 Unspecified asthma, uncomplicated; G30.9 Alzheimer's disease, unspecified; F02.80 Dementia in other diseases classified elsewhere, unspecified severity, without behavioral disturbance, psychotic disturbance, mood disturbance, and anxiety; Z74.01 Bed confinement status; Z79.84 Long term (current) use of oral hypoglycemic drugs; Z79.899 Other long term (current) drug therapy